=== PATIENT | female | born 1935 | race Caucasian/White ===

== ENCOUNTER 2016-10-06 18:50 | Emergency (ER) | payer MEDICARE, BC ==
[2016-10-06 19:35] VITALS: BP 161/91
[2016-10-06] MEDS ORDERED: Heparin Sodium 5,000 Units/ML Vial SUBCUT ONE (19:38)
[2016-10-06] MEDS ORDERED: Heparin Sodium 5,000 Units/ML Vial ONE (19:39)
[2016-10-06] MEDS ORDERED: Heparin Sodium/D5W 250 ML ONE (19:41)
[2016-10-06] MEDS ORDERED: Heparin Sodium/D5W 25,000 UNITS/250 ML BAG IV SCH (19:45)
[2016-10-06 19:47] LABS: CHLORIDE,CL 101 mmol/L (98-115); SODIUM,NA 137 mmol/L (136-145)
[2016-10-06] MEDS ORDERED: Heparin Sodium 5,000 Units/ML Vial IVPUSH ONE (19:50)
--- NOTE | 2016-10-06 20:04 | EDM.PDOC ---
ED HPI GENERAL MEDICAL PROBLEM - General Chief Complaint: Chest Pain Stated Complaint: CHEST PAIN Time Seen by Provider: 10/06/16 19:17 Source of Information: Reports: Patient, EMS, Family, Senior Living Records History Limitations: Reports: No Limitations - History of Present Illness INITIAL COMMENTS - FREE TEXT/NARRATIVE: Patient [place] via ambulance from [place] with report of chest pain. She had been ready to start eating supper when she was noticed to be holding her arms stiff and had a fever of 102.5. They called for the ambulance and while en route to ER she developed chest pain at 1830-40. Nitro and ASA 81x4 were administered. Shortly after arrival to ER her chest pain subsided. EKG shows LBBB and ST elevations in leads V1-3. O2 sats were 89% on RA and came up to 97% on 2 liters of oxygen via cannula. Discussed this with pt and family; they would like to go to [facility] so I called and talked with leasing director Dr. Betts. He reviewed previous EKGs and compared with ours today showing no significant change. Labs are pending. With her response to nitro we felt best to treat like a NSTEMI and transfer for serial troponins there in [place]. Patient and family agreeable with this. Discussed case with hospitalist Dr. Ogden who accepted patient for transfer and serial troponins. - Related Data Allergies Allergy/AdvReac Type Severity Reaction Status Date / Time terbinafine HCl Allergy Severe Hives Verified 10/06/16 19:46 [From Lamisil] Penicillins Allergy Cannot Verified 10/06/16 19:46 Remember Home Meds: Home Meds Acetaminophen [Tylenol] 650 mg PO Q4H PRN 11/21/13 [History] Albuterol [Proventil] 1 blister INH TID PRN 11/21/13 [History] Baclofen 10 mg PO TID 11/21/13 [History] Calcium Carbonate/Vitamin D3 [Calcium 600 + Vit D 400] 1 each PO BID 11/21/13 [ History] Carvedilol [Coreg] 3.125 mg PO BID 11/21/13 [History] Codeine/Promethazine HCl [Promethazine-Codeine Syrup] 5 ml PO Q4H PRN 11/21/13 [ History] Cranberry 400 mg PO TID 11/21/13 [History] Lisinopril 2.5 mg PO DAILY 11/21/13 [History] Loratadine [Claritin] 10 mg PO DAILY 11/21/13 [History] Multivits,Ca,Minerals/Iron/FA [Thera-M] 1 each PO BID 11/21/13 [History] Sulfamethoxazole/Trimethoprim [Bactrim 400-80 MG] 0.5 tab PO DAILY 11/21/13 [ History] Dalfampridine [Ampyra] 10 mg PO Q12HR 12/25/13 [History] Provex-Plus 1 cap PO DAILY 12/25/13 [History] Cellwise 1 tab PO BID 05/22/14 [History] Acetaminophen [Tylenol Arthritis Pain] 650 mg PO TID 10/26/14 [History] Albuterol Sulfate 2.5 mg IH TID 10/26/14 [History] Dextromethorphan/guaiFENesin [Mucinex DM ER 600-30 MG] 1 tab PO Q12H PRN [History] Docusate Sodium [Colace] 100 mg PO BID 10/26/14 [History] Nystatin 1 each TOP DAILY PRN 10/26/14 [History] Oxybutynin [Oxybutynin ER] 5 mg PO BID 10/26/14 [History] Polyvinyl Alcohol/Povidone [Refresh] 1 drop EARLF BID 10/26/14 [History] Past Medical History 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 ED EXAM, GENERAL - Physical Exam Exam: See Below Exam Limited By: No Limitations General Appearance: Alert, WD/WN, Anxious Eye Exam: Bilateral Eye: EOMI, Normal Inspection, PERRL Ears: Normal External Exam, Hearing Grossly Normal Nose: Normal Inspection, No Blood. No: Nasal Flaring Throat/Mouth: Normal Inspection, Normal Lips, Normal Voice, No Airway Compromise Head: Atraumatic, Normocephalic Neck: Normal Inspection, Supple, Non-Tender Respiratory/Chest: Lungs Clear, Respiratory Distress (She has some chronic increased respiratory effort but no change currently per patient and her daughter.) Cardiovascular: Tachycardia Peripheral Pulses: 2+: Radial (L), Radial (R) Neurological: Alert, Oriented, Normal Cognition, No Motor/Sensory Deficits Psychiatric: Normal Affect, Normal Mood, Anxious Skin Exam: Warm, Dry, Intact, Normal Color, No Rash Course - Vital Signs Last Recorded V/S: Last Vital Signs Temp 101.2 F H 10/06/16 19:20 Pulse 117 H 10/06/16 19:20 Resp 30 H 10/06/16 19:20 BP 161/91 H 10/06/16 19:20 Pulse Ox 89 L 10/06/16 19:20 - Orders/Labs/Meds Orders: Active Orders 24 hr Category Date Time Status INR,PT,PROTHROMBIN TIME [COAG] Stat Lab 10/06/16 19:42 Ordered LACTIC ACID [CHEM] Stat Lab 10/06/16 19:42 Ordered PTT,PARTIAL THROMBOPLSTIN TIME [COAG] Stat Lab 10/06/16 19:42 Ordered TROPONIN I [CHEM] Stat Lab 10/06/16 19:42 Ordered Heparin Sodium/D5W Med 10/06/16 19:45 Ordered 25,000 units in 250 ml IV TITRATE Medication Orders Heparin Sodium/Dextrose () 25,000 units in 250 mls @ 10 mls/hr IV TITRATE POLO; 1,000 UNITS/HR PRN Reason: Protocol Labs: Laboratory Tests 10/06/16 10/06/16 Range/Units 19:05 19:05 WBC 15.1 H (5.0-10.0) 10^3/uL RBC 4.19 (3.80-5.50) 10^6/uL Hgb 13.6 (12.0-16.0) g/dL Hct 41.5 (37.0-47.0) % MCV 98.9 H (82.0-92.0) fL MCH 32.4 H (27.0-31.0) pg MCHC 32.7 (32.0-36.0) g/dL RDW 12.8 (11.5-14.5) % Plt Count 318 H (150-300) 10^3/uL MPV 7.3 L (7.4-10.4) fL Neut % (Auto) 72.2 H (50.0-70.0) % Lymph % (Auto) 19.3 L (20.0-40.0) % [place] % (Auto) 8.2 H (2.0-8.0) % Eos % (Auto) 0.1 L (1.0-3.0) % Baso % (Auto) 0.2 (0.0-1.0) % Neut # (Auto) 11.0 H (2.5-7.0) 10^3/uL Lymph # (Auto) 2.9 (1.0-4.0) 10^3/uL [place] # (Auto) 1.2 H (0.1-0.8) 10^3/uL Eos # (Auto) 0.0 L (0.1-0.3) 10^3/uL Baso # (Auto) 0.0 (0.0-0.1) 10^3/uL Sodium 137 (136-145) mmol/L Potassium 3.9 (3.3-5.3) mmol/L Chloride 101 (98-115) mmol/L Carbon Dioxide 28.7 (21.0-32.0) mmol/L BUN 10 (6-25) mg/dL Creatinine 0.56 (0.51-1.17) mg/dL Est Cr Clr Drug Dosing 75.01 mL/min Estimated GFR (MDRD) > 60 mL/min Glucose 132 H (70-110) mg/dL Calcium 8.6 L (8.7-10.3) mg/dL Troponin I < 0.04 (0.00-0.070) ng/mL Meds: Medications Generic Name Dose Route Start Last Admin Trade Name Freq PRN Reason Stop Dose Admin Heparin Sodium/Dextrose 25,000 units in 250 mls @ 10 mls/hr 10/06/16 19:45 IV TITRATE POLO Protocol 1,000 UNITS/HR Discontinued Medications Generic Name Dose Route Start Last Admin Trade Name Freq PRN Reason Stop Dose Admin Heparin Sodium (Porcine) 5,000 units 10/06/16 19:38 Heparin Sodium SUBCUT 10/06/16 19:39 ONETIME ONE Heparin Sodium (Porcine) Confirm 10/06/16 19:39 Heparin Sodium Administered 10/06/16 19:40 Dose 5,000 units .ROUTE .STK-MED ONE Heparin Sodium/Dextrose Confirm 10/06/16 19:41 Administered 10/06/16 19:42 Dose 250 mls @ as directed .ROUTE .STK-MED ONE - Re-Assessments/Exams Free Text/Narrative Re-Assessment/Exam: 10/06/16 20:29 Discussed case with both doctors in [place] as in HPI. Labs are in now showing WBC of 15.1 and CRP 8.1 with normal lactate. Trop is normal at 0.04. This updated lab information is relayed to [facility] in nurse to nurse call. Heparin bolus was given and the drip started. Patient transported to [facility] via ALS ambulance and left in stable condition. 10/06/16 20:39 Blood cultures were obtained. A chest xray was planned but not done before patient left. Departure - Departure Time of Disposition: 19:45 Disposition: DC/Tfer to [facility] 02 Reason for Transfer *Q: Other Condition: Fair Clinical Impression: NSTEMI (non-ST elevated myocardial infarction), Neutrophilic leukocytosis Fever Qualifiers: Fever type: unspecified Qualified Code(s): R50.9 - Fever, unspecified Referrals: Autumn Cohen MD [Primary Care Provider] - Forms: ED Department Discharge - My Orders Last 24 Hours: My Active Orders 10/06/16 19:42 INR,PT,PROTHROMBIN TIME [COAG] Stat LACTIC ACID [CHEM] Stat PTT,PARTIAL THROMBOPLSTIN TIME [COAG] Stat TROPONIN I [CHEM] Stat 10/06/16 19:45 Heparin Sodium/D5W 25,000 units in 250 ml IV TITRATE - Assessment/Plan Last 24 Hours: My Active Orders 10/06/16 19:42 INR,PT,PROTHROMBIN TIME [COAG] Stat LACTIC ACID [CHEM] Stat PTT,PARTIAL THROMBOPLSTIN TIME [COAG] Stat TROPONIN I [CHEM] Stat 10/06/16 19:45 Heparin Sodium/D5W 25,000 units in 250 ml IV TITRATE
== END 2016-10-06 20:05 ==
LOC: KA.ED 18:50
DX: I21.4 Non-ST elevation (NSTEMI) myocardial infarction (principal); D72.828 Other elevated white blood cell count; G35 Multiple sclerosis; Z87.891 Personal history of nicotine dependence; Z79.899 Other long term (current) drug therapy; Z88.0 Allergy status to penicillin; Z88.8 Allergy status to other drugs, medicaments and biological substances
CPT/HCPCS: 36415; 80048; 83605; 84484; 85025; 85610; 85730; 86140; 87040; 93005; 96374; 96375; 99285; J1644

== ENCOUNTER 2017-03-31 01:25 | Inpatient (IN) | payer MEDICARE, BC ==
[2017-03-31] MEDS ORDERED: Sodium Chloride 0.9% 5 ML Syringe FLUSH PRN (01:49)
[2017-03-31] MEDS ORDERED: Acetaminophen 500 MG Tab PO ONE (01:51)
--- NOTE | 2017-03-31 02:21 | EDM.PDOC ---
ED HPI GENERAL MEDICAL PROBLEM - General Chief Complaint: Respiratory Problem Stated Complaint: Sob, hypoxia Time Seen by Provider: 03/31/17 02:00 Source of Information: Reports: Patient History Limitations: Reports: Altered Mental Status (MS, dementia) - History of Present Illness INITIAL COMMENTS - FREE TEXT/NARRATIVE: 81-year-old female resident the [facility] long term [facility] is brought to the emergency room by the EMS complaints of shortness of breath and coughing. Staff have noticed that patient's O2 saturations were in the low 80s and was having increased coughing today she was given nebulizer treatment without improvement. She was febrile. Her cough is unproductive some wet. Upon arrival EMS O2 saturations were in the low 80s she was put on a non-rebreather O2 at 15 L O2 saturations improved to 97% she was tachycardic with a heart rate running in the 120s she was hypotensive blood pressures 87/50 respirations were 26, temperature on arrival was 100. Patient has a history of MS, dementia, and CHF. She is a poor historian and is unable to communicate her past medical history. Her daughter is present today and accompanies her in the room. Onset: Today Onset Date: 03/30/17 Duration: Hour(s):, Getting Worse Location: Reports: Chest Severity: Severe Improves with: Reports: Other (Oxygen) Worsens with: Reports: Breathing Associated Symptoms: Reports: Confusion, Cough, cough w sputum, Fever/Chills, Shortness of Breath Treatments ROLL FILLER: Reports: Breathing Treatments, Oxygen - Related Data Allergies Allergy/AdvReac Type Severity Reaction Status Date / Time terbinafine HCl Allergy Severe Hives Verified 03/31/17 01:35 [From Lamisil] Penicillins Allergy Cannot Verified 03/31/17 01:35 Remember Home Meds: Home Meds Acetaminophen [Tylenol] 650 mg PO Q4H PRN 11/21/13 [History] Carvedilol [Coreg] 3.125 mg PO BID 11/21/13 [History] Loratadine [Claritin] 10 mg PO DAILY PRN 11/21/13 [History] Multivits,Ca,Minerals/Iron/FA [Thera-M] 1 each PO BID 11/21/13 [History] Provex-Plus 1 cap PO DAILY 12/25/13 [History] Cellwise 1 tab PO BID 05/22/14 [History] Acetaminophen [Tylenol Arthritis Pain] 650 mg PO TID 10/26/14 [History] Albuterol Sulfate 2.5 mg IH Q4HR PRN 10/26/14 [History] Docusate Sodium [Colace] 100 mg PO BID 10/26/14 [History] Aspirin [Adult Low Dose Aspirin EC] 81 mg PO DAILY 10/07/16 [History] Cranberry Conc/Ascorbic Acid [Cranberry Plus Vitamin C Sftgl] 1 cap PO DAILY [History] Dextromethorphan/guaiFENesin [Mucinex DM ER 600-30 MG] 1 tab PO Q12HR PRN [History] Furosemide 40 mg PO DAILY 10/07/16 [History] Miconazole Nitrate [Anti-Fungal] 1 applic TOP BID 10/07/16 [History] Polyethylene Glycol 3350 [MiraLAX] 17 gm PO DAILY 10/07/16 [History] Potassium Chloride 20 meq PO DAILY 10/07/16 [History] QUEtiapine [SEROquel] 12.5 mg PO DAILY 10/07/16 [History] Albuterol Sulfate 2.5 mg IH BID 03/31/17 [History] L.acidoph,Paracasei, B.lactis [Probiotic] 2 each PO BID 03/31/17 [History] Past Medical History HEENT History: Reports: Hard of Hearing, Impaired Vision Cardiovascular History: Reports: Heart Failure 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 Respiratory History: Reports: Other (See Below) Other Respiratory History: chronic wheezing Gastrointestinal History: Reports: Chronic Constipation Genitourinary History: Reports: Neurogenic Bladder, Urinary Incontinence, UTI, Recurrent Musculoskeletal History: Reports: Arthritis Other Musculoskeletal History: multiple sclerosis Neurological History: Reports: [place] Psychiatric History: Reports: Dementia Social & Family History - Tobacco Use Smoking Status *Q: Former Smoker Years of Tobacco use: 25 Used Tobacco, but Quit: Yes Month Tobacco Last Used: december Second Hand Smoke Exposure: No - Caffeine Use Caffeine Use: Reports: None - Alcohol Use Days Per Week of Alcohol Use: 0 - Recreational Drug Use Recreational Drug Use: No ED ROS GENERAL - Review of Systems Review Of Systems: Unable To Obtain (dementia) ED EXAM, GENERAL - Physical Exam Exam: See Below Exam Limited By: Altered Mental Status General Appearance: Alert, No Apparent Distress, Obese Eye Exam: Bilateral Eye: EOMI, PERRL Ears: Normal External Exam, Normal TMs Nose: Normal Inspection Throat/Mouth: Normal Inspection, Normal Oropharynx Head: Atraumatic Neck: Normal Inspection, Supple Respiratory/Chest: Decreased Breath Sounds, Crackles, Wheezing (expiratory) Cardiovascular: No Edema, Tachycardia Peripheral Pulses: 1+: Dorsalis Pedis (L), Dorsalis Pedis (R), 2+: Carotid (L), Carotid (R) GI/Abdominal: Soft, Non-Tender, No Distention Back Exam: Normal Inspection, Full Range of Motion Extremities: Normal Inspection, No Pedal Edema Neurological: Alert, Confused (pleasantly) Psychiatric: Normal Mood, Flat Affect Skin Exam: Warm (patient skin is very warm), Dry, Intact, No Rash Lymphatic: No Adenopathy EKG INTERPRETATION EKG Date: 03/31/17 Time: 02:23 Rhythm: Other (sinus tachycardia) Rate (Beats/Min): 115 [place]: LAD-Left [place] Deviation QRS: LBBB ST-T: Normal QT: Normal Comparison: NA - No Prior EKG EKG Interpretation Comments: ECG Course - Vital Signs Last Recorded V/S: Last Vital Signs Temp 99.6 F 03/31/17 03:24 Pulse 120 H 03/31/17 01:35 Resp 28 H 03/31/17 01:35 BP 119/50 L 03/31/17 01:35 Pulse Ox 5 L 03/31/17 01:35 - Orders/Labs/Meds Orders: Active Orders 24 hr Category Date Time Status EKG Documentation Completion [RC] ASDIRECTED Care 03/31/17 01:50 Active Chest 2V [CR] Stat Exams 03/31/17 01:51 Ordered CULTURE BLOOD [BC] Stat Lab 03/31/17 02:05 Received CULTURE BLOOD [BC] Stat Lab 03/31/17 03:05 Received UA W/MICROSCOPIC [URIN] Stat Lab 03/31/17 02:46 Uncollected Sodium Chloride 0.9% [Normal Saline] 1,000 ml Med 03/31/17 03:00 Active IV ASDIRECTED Sodium Chloride 0.9% [Syrex Flush] Med 03/31/17 01:49 Active 5 ml FLUSH Q8HR PRN Blood Culture x2 Reflex Set [OM.PC] Stat Oth 03/31/17 01:50 Ordered Saline Lock Insert [OM.PC] Routine Oth 03/31/17 01:49 Ordered EKG 12 Lead [EK] Routine Ther 03/31/17 01:50 Ordered Medication Orders Sodium Chloride (Normal Saline) 1,000 mls @ 150 mls/hr IV ASDIRECTED POLO Last Admin: 03/31/17 02:58 Dose: 150 mls/hr Sodium Chloride (Syrex Flush) 5 ml FLUSH Q8HR PRN PRN Reason: Keep Vein Open Labs: Laboratory Tests 03/31/17 03/31/17 Range/Units 02:05 02:05 WBC 8.7 (5.0-10.0) 10^3/uL RBC 4.39 (3.80-5.50) 10^6/uL Hgb 13.9 (12.0-16.0) g/dL Hct 43.3 (37.0-47.0) % MCV 98.7 H (82.0-92.0) fL MCH 31.8 H (27.0-31.0) pg MCHC 32.2 (32.0-36.0) g/dL RDW 13.3 (11.5-14.5) % Plt Count 331 H (150-300) 10^3/uL MPV 7.5 (7.4-10.4) fL Sodium 139 (136-145) mmol/L Potassium 4.0 (3.3-5.3) mmol/L Chloride 101 (98-115) mmol/L Carbon Dioxide 31.8 (21.0-32.0) mmol/L BUN 10 (6-25) mg/dL Creatinine 0.63 (0.51-1.17) mg/dL Est Cr Clr Drug Dosing 64.09 mL/min Estimated GFR (MDRD) > 60 mL/min Glucose 138 H (70-110) mg/dL Calcium 9.3 (8.7-10.3) mg/dL Total Bilirubin 0.2 (0.2-1.0) mg/dL AST 24 (15-37) U/L ALT 20 (12-78) U/L Alkaline Phosphatase 93 (46-116) IU/L B-Natriuretic Peptide 852 H (0-100) pg/mL Total Protein 8.4 H (6.4-8.2) g/dL Albumin 3.09 (3.00-4.80) g/dL Meds: Medications Generic Name Dose Route Start Last Admin Trade Name Freq PRN Reason Stop Dose Admin Sodium Chloride 1,000 mls @ 150 mls/hr 03/31/17 03:00 03/31/17 02:58 Normal Saline IV 150 mls/hr ASDIRECTED POLO Administration Sodium Chloride 5 ml 03/31/17 01:49 Syrex Flush FLUSH Q8HR PRN Keep Vein Open Discontinued Medications Generic Name Dose Route Start Last Admin Trade Name Freq PRN Reason Stop Dose Admin Acetaminophen 1,000 mg 03/31/17 01:51 03/31/17 03:24 Tylenol Extra Strength PO 03/31/17 01:52 1,000 mg ONETIME ONE Administration Sodium Chloride Confirm 03/31/17 02:52 03/31/17 03:25 Normal Saline Administered 03/31/17 02:53 Not Given Dose 1,000 mls @ as directed .ROUTE .STK-MED ONE - Radiology Interpretation Free Text/Narrative:: Chest x-ray 2 views Impression Findings suggest pulmonary congestion/mild CHF. Mild airway disease may not be excluded. No focal consolidation identified - Re-Assessments/Exams Free Text/Narrative Re-Assessment/Exam: 03/31/17 03:47 Patient is resting comfortably. Her heart rate is down to 95. Blood pressures are stable at 100 systolic over 60 diastolic. Departure - Departure Time of Disposition: 03:53 Disposition: Admitted As Inpatient 67 Condition: Fair Clinical Impression: Influenza, Febrile illness, acute, Tachycardia with heart rate 100-120 beats per minute, Hypoxia Congestive heart failure Qualifiers: Congestive heart failure type: unspecified congestive heart failure type Congestive heart failure chronicity: acute on chronic Qualified Code(s): I50.9 - Heart failure, unspecified - Discharge Information Referrals: Vita Maravilla TASSEL SNIPPER [Primary Care Provider] - Forms: ED Department Discharge - My Orders Last 24 Hours: My Active Orders 03/31/17 01:49 Sodium Chloride 0.9% [Syrex Flush] 5 ml FLUSH Q8HR PRN Saline Lock Insert [OM.PC] Routine 03/31/17 01:50 EKG Documentation Completion [RC] ASDIRECTED Blood Culture x2 Reflex Set [OM.PC] Stat EKG 12 Lead [EK] Routine 03/31/17 01:51 Chest 2V [CR] Stat 03/31/17 02:05 CULTURE BLOOD [BC] Stat 03/31/17 02:46 UA W/MICROSCOPIC [URIN] Stat 03/31/17 03:00 Sodium Chloride 0.9% [Normal Saline] 1,000 ml IV ASDIRECTED 03/31/17 03:05 CULTURE BLOOD [BC] Stat - Assessment/Plan Last 24 Hours: My Active Orders 03/31/17 01:49 Sodium Chloride 0.9% [Syrex Flush] 5 ml FLUSH Q8HR PRN Saline Lock Insert [OM.PC] Routine 03/31/17 01:50 EKG Documentation Completion [RC] ASDIRECTED Blood Culture x2 Reflex Set [OM.PC] Stat EKG 12 Lead [EK] Routine 03/31/17 01:51 Chest 2V [CR] Stat 03/31/17 02:05 CULTURE BLOOD [BC] Stat 03/31/17 02:46 UA W/MICROSCOPIC [URIN] Stat 03/31/17 03:00 Sodium Chloride 0.9% [Normal Saline] 1,000 ml IV ASDIRECTED 03/31/17 03:05 CULTURE BLOOD [BC] Stat Assessment:: 1. Acute exacerbation of congestive heart failure 2. Influenza A positive 3. Febrile 4. Tachycardia 5. Hypoxia Plan: 1. Patient will be admitted and started on IV Lasix 40 mg beginning this morning. We'll start Tamiflu for influenza. I discussed the findings with the provider Vita maravilla nurse practitioner, she takeover inpatient care.
[2017-03-31 02:36] LABS: CHLORIDE,CL 101 mmol/L (98-115); SODIUM,NA 139 mmol/L (136-145)
[2017-03-31] MEDS ORDERED: Sodium Chloride 0.9% 1,000 ML ONE (02:52)
[2017-03-31] MEDS ORDERED: Sodium Chloride 0.9% 1,000 ML IV SCH (03:00)
[2017-03-31] MEDS ORDERED: Albuterol 0.083% 2.5 MG/3 ML Neb Soln NEB PRN ×2 (04:01→04:09)
[2017-03-31] MEDS ORDERED: Acetaminophen 325 MG Tab PO PRN ×2 (04:01→04:09)
[2017-03-31] MEDS ORDERED: MICONAZOLE NITRATE TOP PRN (04:09)
[2017-03-31] MEDS ORDERED: Non-Formulary Medication 1 Each (Loratadine [Claritin] 10 MG) PO PRN (04:09)
[2017-03-31] MEDS: Oseltamivir 75 MG Cap PO SCH ×2 (04:51→10:32)
[2017-03-31] MEDS ORDERED: Atropine 0.1 MG/ML 10 ML Syringe IVPUSH PRN (06:04)
[2017-03-31] MEDS ORDERED: Lidocaine 2% 100 MG/5 ML Syringe IVPUSH PRN (06:04)
[2017-03-31] MEDS ORDERED: EPINEPHrine 1:10,000 1 MG/10 ML Syringe IVPUSH PRN (06:04)
[2017-03-31] MEDS ORDERED: Nitroglycerin 0.4 MG Tab.SL SL PRN (06:04)
[2017-03-31] MEDS ORDERED: Furosemide 40 MG/4 ML VIAL IVPUSH ONE (06:15)
[2017-03-31 08:38] LABS: CHLORIDE,CL 101 mmol/L (98-115); SODIUM,NA 140 mmol/L (136-145)
[2017-03-31] MEDS ORDERED: CARVEDILOL 3.125 MG PO SCH (09:00)
[2017-03-31] MEDS ORDERED: Polyethylene Glycol 3350 Powder 238 GM Bot PO SCH (09:00)
[2017-03-31] MEDS ORDERED: [UNRECOGNIZED DRUG - OTHER] PO SCH (09:00)
[2017-03-31] MEDS ORDERED: IRON PO SCH (09:00)
[2017-03-31] MEDS ORDERED: CELLWISE PO SCH (09:00)
[2017-03-31] MEDS ORDERED: [UNRECOGNIZED DRUG - OTHER] PO SCH (09:00)
[2017-03-31] MEDS ORDERED: Non-Formulary Medication 1 Each (Cranberry Conc/Ascorbic Acid [Cranberry Plus Vitamin C Sf PO SCH (09:00)
[2017-03-31] MEDS ORDERED: Non-Formulary Medication 1 Each (Potassium Chloride [Potassium Chloride] 20 MEQ) PO SCH (09:00)
[2017-03-31] MEDS ORDERED: MULTIVITS CA MINERALS PO SCH (09:00)
[2017-03-31] MEDS ORDERED: ACIDOPH PARACASEI B LACTIS PO SCH (09:00)
[2017-03-31] MEDS: Acetaminophen 650 MG Tab.ER PO SCH ×3 (10:33→20:45)
[2017-03-31] MEDS: Docusate Sodium 100 MG Cap PO SCH ×2 (10:33→20:46)
[2017-03-31] MEDS: Aspirin 81 MG Tab.EC PO SCH (10:33)
[2017-03-31] MEDS: Potassium Chloride 20 MEQ Tab.ER PO SCH (10:37)
[2017-03-31] MEDS: B.Bifidum/B.Longum/L.Acidophilus/L.Rhamnosus (Probiotic) Cap PO SCH (10:37)
[2017-03-31] MEDS ORDERED: Loratadine 10 MG Tab PO PRN (11:45)
[2017-03-31] MEDS ORDERED: Carvedilol 6.25 MG Tab PO SCH (18:00)
[2017-03-31] MEDS: Multivitamins with Minerals/Iron/Folic Acid/Lycopene Tab PO SCH (18:21)
[2017-03-31] MEDS: Carvedilol 6.25 MG Tab PO SCH (18:21)
--- NOTE | 2017-03-31 19:36 | PCM.HP ---
H&P History of Present Illness - General Date of Service: 03/31/17 Admit Problem/Dx: Admission Diagnosis/Problem Admission Diagnosis/Problem CHF, Congestive heart failure influenza A positive Source of Information: [facility] Records, Provider History Limitations: Reports: Altered Mental Status, Respiratory Distress - History of Present Illness Initial Comments - Free Text/Narative: 81-year-old female resident the [facility] was brought to the emergency room by the EMS with complaints of shortness of breath and coughing. Staff had noticed that patient's O2 saturations were in the low 80s and was having increased coughing. She was given nebulizer treatment without improvement. She was febrile. Her cough is unproductive. Upon arrival of EMS, O2 saturations were in the low 80s. She was put on a non-rebreather O2 at 15 L O2 saturations improved to 97%. she was tachycardic with a heart rate running in the 120s. She was hypotensive blood pressures 87/50 respirations were 26, temperature on arrival was 100. Patient has a history of MS, dementia, and CHF. She is a poor historian and is unable to communicate her past medical history. Onset of Symptoms: Reports: Sudden Symptom Onset Date: 03/30/17 Duration of Symptoms: Reports: Hour(s):, Getting Worse Location: Reports: Chest Improves with: Reports: None Worsens with: Reports: Breathing Context: Reports: Sick Contact, Other (Other residents of same NH admitted with flu) Associated Symptoms: Reports: Confusion, Cough, Diaphoresis, Fever/Chills, Shortness of Breath, Weakness - Related Data Allergies/Adverse Reactions: Allergies Allergy/AdvReac Type Severity Reaction Status Date / Time terbinafine HCl Allergy Severe Hives Verified 03/31/17 01:35 [From Lamisil] Penicillins Allergy Cannot Verified 03/31/17 01:35 Remember Home Medications: Home Meds Acetaminophen [Tylenol] 650 mg PO Q4H PRN 11/21/13 [History] Carvedilol [Coreg] 3.125 mg PO BID 11/21/13 [History] Loratadine [Claritin] 10 mg PO DAILY PRN 11/21/13 [History] Multivits,Ca,Minerals/Iron/FA [Thera-M] 1 each PO BID 11/21/13 [History] Provex-Plus 1 cap PO DAILY 12/25/13 [History] Cellwise 1 tab PO BID 05/22/14 [History] Acetaminophen [Tylenol Arthritis Pain] 650 mg PO TID 10/26/14 [History] Albuterol Sulfate 2.5 mg IH Q4HR PRN 10/26/14 [History] Docusate Sodium [Colace] 100 mg PO BID 10/26/14 [History] Aspirin [Adult Low Dose Aspirin EC] 81 mg PO DAILY 10/07/16 [History] Cranberry Conc/Ascorbic Acid [Cranberry Plus Vitamin C Sftgl] 1 cap PO DAILY [History] Dextromethorphan/guaiFENesin [Mucinex DM ER 600-30 MG] 1 tab PO Q12HR PRN [History] Furosemide 40 mg PO DAILY 10/07/16 [History] Miconazole Nitrate [Anti-Fungal] 1 applic TOP BID PRN 10/07/16 [History] Polyethylene Glycol 3350 [MiraLAX] 17 gm PO DAILY 10/07/16 [History] Potassium Chloride 20 meq PO DAILY 10/07/16 [History] QUEtiapine [SEROquel] 12.5 mg PO BEDTIME 10/07/16 [History] Albuterol Sulfate 2.5 mg IH BID 03/31/17 [History] L.acidoph,Paracasei, B.lactis [Probiotic] 2 each PO BID 03/31/17 [History] Past Medical History HEENT History: Reports: Hard of Hearing, Impaired Vision Cardiovascular History: Reports: Heart Failure 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, VRE Other Infectious Disease History: currently + influenza A - Past Surgical History Dermatological Surgical History: Reports: None Social & Family History - Tobacco Use Smoking Status *Q: Former Smoker Years of Tobacco use: 25 Used Tobacco, but Quit: Yes Month Tobacco Last Used: december Second Hand Smoke Exposure: No - Caffeine Use Caffeine Use: Reports: None - Alcohol Use Days Per Week of Alcohol Use: 0 - Recreational Drug Use Recreational Drug Use: No H&P Review of Systems - Review of Systems: Review Of Systems: Unable To Obtain (due to dementia) General: Reports: Fever, Malaise, Weakness Pulmonary: Reports: Shortness of Breath, Wheezing, Cough Cardiovascular: Reports: Other (shortness of breath at rest) Exam - Exam Exam: See Below - Vital Signs Vital Signs: Last Vital Signs Temp 99.6 F 03/31/17 19:00 Pulse 104 H 03/31/17 19:00 Resp 28 H 03/31/17 19:00 BP 136/81 03/31/17 19:00 Pulse Ox 97 03/31/17 19:00 Weight: 217 lb 4 oz - Exam Quality Assessment: Supplemental Oxygen General: Alert, Moderate Distress, Other (confused. Knows she wants something or something should be done, but doesn't know what.) Neck: No: JVD Lungs: Wheezing (coarse expiratory wheezing throughout) Cardiovascular: Irregular Rhythm, Tachycardia, Other (Heart rate 123-115 on admit, 100-104 after coreg increased) GI/Abdominal Exam: Normal Bowel Sounds, Soft, Non-Tender Extremities: No Pedal Edema Psychiatric: Other (dementia) - Patient Data Lab Results Last 24 hrs: Laboratory Results - last 24 hr 03/31/17 03/31/17 Range/Units 06:44 07:30 Sodium 140 (136-145) mmol/L Potassium 3.4 (3.3-5.3) mmol/L Chloride 101 (98-115) mmol/L Carbon Dioxide 31.8 (21.0-32.0) mmol/L BUN 11 (6-25) mg/dL Creatinine 0.66 (0.51-1.17) mg/dL Est Cr Clr Drug Dosing 61.17 mL/min Estimated GFR (MDRD) > 60 mL/min Glucose 102 (70-110) mg/dL Calcium 8.7 (8.7-10.3) mg/dL Specimen Type Urinqcath Urine Color Dark yellow H (YELLOW) Urine Appearance Cloudy H (CLEAR) Urine pH 6.0 (5.0-9.0) Ur Specific Darling 1.020 (1.005-1.030) Urine Protein 30 H (NEGATIVE) mg/dL Urine Glucose (UA) Negative (NEGATIVE) mg/dL Urine Ketones Trace H (NEGATIVE) mg/dL Urine Occult Blood Small H (NEGATIVE) Urine Nitrite Negative (NEGATIVE) Urine Bilirubin Negative (NEGATIVE) Urine Urobilinogen 0.2 (0.2-1.0) E.U./dL Ur Leukocyte Esterase Small H (NEGATIVE) Urine RBC 10-20 H /HPF Urine WBC 50-75 H /HPF Ur Epithelial Cells Rare /LPF Amorphous Sediment Many H (0/HPF) /HPF Urine Bacteria Few (NONE TO FEW) /HPF Urine Mucus Rare H (NEGATIVE) /LPF Result Diagrams: 03/31/17 02:05 03/31/17 07:30 *Q Meaningful Use (ADM) - VTE *Q VTE Criteria *Q: - Stroke *Q Stroke Criteria *Q: - AMI *Q AMI Criteria *Q: Problem List Initiated/Reviewed/Updated: Yes Orders Last 24hrs: Active Orders 24 hr Category Date Time Status Admission Status [Patient Status] [ADT] Routine ADT 03/31/17 03:57 Ordered Patient Status [ADT] Routine ADT 03/31/17 04:02 Ordered Antiembolic Devices [RC] 0900,2100 Care 03/31/17 04:08 Active Cardiac Monitoring [RC] 0300,0700,1100,1500,1900,2300 Care 03/31/17 04:05 Active Height and Weight [RC] 0700 Care 03/31/17 04:01 Active Intake and Output [RC] 1400,2200,0600 Care 03/31/17 04:05 Active Oxygen Therapy [RC] PRN Care 03/31/17 04:02 Active Pulse Oximetry [RC] .PRN Care 03/31/17 04:05 Active RT Aerosol Therapy [RC] ASDIRECTED Care 03/31/17 04:08 Active Vital Signs [RC] 0300,0700,1100,1500,1900,2300 Care 03/31/17 04:02 Active Heart Healthy Diet [DIET] Diet 03/31/17 Breakfast Active Acetaminophen [Tylenol Arthritis Pain] Med 03/31/17 09:00 Active 650 mg PO TID Acetaminophen [Tylenol] Med 03/31/17 04:01 Active 650 mg PO Q4H PRN Albuterol [Proventil Neb Soln] Med 03/31/17 04:09 Active 2.5 mg NEB BID PRN Albuterol [Proventil Neb Soln] Med 03/31/17 04:09 Active 2.5 mg NEB Q4HR PRN Aspirin [Halfprin] Med 03/31/17 09:00 Active 81 mg PO DAILY Atropine [Atropine 0.1 MG/ML] Med 03/31/17 06:04 Active 0 mg IVPUSH ASDIRECTED PRN B.Bif/B.Long/L.Acidoph/L.Rhamn [Multi-Penelope Plus] Med 03/31/17 10:45 Active 1 cap PO DAILY Carvedilol [Coreg] Med 03/31/17 18:00 Active 6.25 mg PO BIDMEALS Cranberry Ext/C/L. Sporogenes [Azo Cranberry] Med 04/01/17 09:00 Active 1 each PO DAILY Dextromethorphan/guaiFENesin [Mucinex DM ER 600-30 MG] Med 03/31/17 04:09 Active 1 tab PO Q12H PRN Docusate Sodium [Colace] Med 03/31/17 09:00 Active 100 mg PO BID EPINEPHrine [EPINEPHrine 1:10,000] Med 03/31/17 06:04 Active 1 mg IVPUSH ASDIRECTED PRN FA/Lycopene/Lut/MV,Ca,Iron,Min [Centrum] Med 03/31/17 18:00 Active 1 tab PO BIDMEALS Furosemide [Lasix] Med 04/01/17 09:00 Active 40 mg IVPUSH DAILY Lidocaine 2% [Xylocaine 2%] Med 03/31/17 06:04 Active 0 mg IVPUSH ASDIRECTED PRN Loratadine [Claritin] Med 03/31/17 11:45 Active 10 mg PO DAILY PRN Miconazole Nitrate [Anti-Fungal] Med 03/31/17 04:09 Active 1 applic TOP BID PRN Nitroglycerin [Nitrostat] Med 03/31/17 06:04 Active 0.4 mg SL ASDIRECTED PRN Oseltamivir [Tamiflu] Med 03/31/17 04:30 Active 75 mg PO DAILY Polyethylene Glycol 3350 [MiraLAX] Med 03/31/17 09:55 Active 17 gm PO DAILY Potassium Chloride [Klor-Con M20] Med 03/31/17 10:45 Active 20 meq PO DAILY QUEtiapine [SEROquel] Med 03/31/17 21:00 Active 12.5 mg PO BEDTIME Sulfamethoxazole/Trimethoprim [Septra DS] Med 03/31/17 21:00 Active 1 tab PO BID Antiembolic Hose [OM.PC] Per Unit Routine Oth 03/31/17 04:06 Ordered Sequential Compression Device [OM.PC] Per Unit Routine Oth 03/31/17 04:06 Ordered Resuscitation Status Routine Resus Stat 03/31/17 04:01 Ordered Medication Orders Acetaminophen (Tylenol) 650 mg PO Q4H PRN PRN Reason: Pain (Mild 1-3)/fever Acetaminophen (Tylenol Arthritis Pain) 650 mg PO TID [facility] Last Admin: 03/31/17 14:00 Dose: 650 mg Admin: 03/31/17 10:33 Dose: 650 mg Albuterol (Proventil Neb Soln) 2.5 mg NEB Q4HR PRN PRN Reason: Wheezing Albuterol (Proventil Neb Soln) 2.5 mg NEB BID PRN PRN Reason: Wheezing Stop: 04/03/17 04:10 Aspirin (Halfprin) 81 mg PO DAILY [facility] Last Admin: 03/31/17 10:33 Dose: 81 mg Atropine Sulfate (Atropine 0.1 Mg/Ml) 0 mg IVPUSH ASDIRECTED PRN PRN Reason: Heart Carvedilol (Coreg) 6.25 mg PO BIDMEALS [facility] Last Admin: 03/31/17 18:21 Dose: 6.25 mg Cranberry (Azo Cranberry) 1 each PO DAILY [facility] Docusate Sodium (Colace) 100 mg PO BID [facility] Last Admin: 03/31/17 10:33 Dose: 100 mg Epinephrine HCl (Epinephrine 1:10,000) 1 mg IVPUSH ASDIRECTED PRN PRN Reason: Heart Furosemide (Lasix) 40 mg IVPUSH DAILY [facility] Lactobacillus Acidophilus/Rhamnosus (Multi-Penelope Plus) 1 cap PO DAILY [facility] Last Admin: 03/31/17 10:37 Dose: 1 cap Lidocaine HCl (Xylocaine 2%) 0 mg IVPUSH ASDIRECTED PRN PRN Reason: Heart Loratadine (Claritin) 10 mg PO DAILY PRN PRN Reason: Allergies Multivitamins/Minerals (Centrum) 1 tab PO BIDMEALS [facility] Last Admin: 03/31/17 18:21 Dose: 1 tab Nitroglycerin (Nitrostat) 0.4 mg SL ASDIRECTED PRN PRN Reason: Heart Non-Formulary Medication (Dextromethorphan/Guaifenesin [Mucinex Dm Er 600-30 Mg] ) 1 tab PO Q12H PRN PRN Reason: Cough Non-Formulary Medication (Miconazole Nitrate [Anti-Fungal]) 1 applic TOP BID PRN PRN Reason: Itching Oseltamivir Phosphate (Tamiflu) 75 mg PO DAILY [facility] Last Admin: 03/31/17 10:32 Dose: 75 mg Admin: 03/31/17 04:51 Dose: 75 mg Polyethylene Glycol (Miralax) 17 gm PO DAILY [facility] Potassium Chloride (Klor-Con M20) 20 meq PO DAILY [facility] Last Admin: 03/31/17 10:37 Dose: 20 meq Quetiapine Fumarate (Seroquel) 12.5 mg PO BEDTIME [facility] Sodium Chloride (Syrex Flush) 5 ml FLUSH Q8HR PRN PRN Reason: Keep Vein Open Last Admin: 03/31/17 06:16 Dose: 5 ml Trimethoprim/Sulfamethoxazole (Septra Ds) 1 tab PO BID [facility] Stop: 04/05/17 21:01 Assessment/Plan Comment:: Brief HPI: 81-year-old female resident of [address] [place] [address] admitted through ER with Influenza, / fever, shortness of breath and non productive cough. O2 saturations in the low 80s. She was given nebulizer treatment without improvement. In ER she was put on a non-rebreather O2 at 15 L O2 saturations improved to 97%. She was tachycardic with a heart rate running in the 120s. She was hypotensive blood pressures 87/50 respirations were 26, temperature on arrival was 100. Patient has a history of MS, dementia, and CHF. 1. Influenza: Tamaflu 75 mg bid, Albuterol prn. 2. CHF: Chest Xray showing mild CHF without consolidation. Started on lasix 40 mg IV. Renal status WNL on last BMP. Will continue to monitor renal functions daily. 3. EKG showing Sinus Tachycardia: Increase carvedilol from 3.125 to 6.25 mg bid. Her BP has been within a normal range at 136/81. Heart rate has improved to 100-104 with increased carvedilol. 4. UTI: UA in ER showing RBCs, 10-20, WBCs 50-75 and protein 30. Will treat for UTI with Rocephin 1g iv q d x 3.
[2017-03-31] MEDS: Sulfamethoxazole/Trimethoprim 800-160 MG Tab PO SCH (20:46)
[2017-03-31] MEDS: QUEtiapine 25 MG Tab PO SCH (20:46)
[2017-04-01 08:00] LABS: CHLORIDE,CL 100 mmol/L (98-115); SODIUM,NA 136 mmol/L (136-145)
[2017-04-01] MEDS: Polyethylene Glycol 3350 Powder 17 GM Packet PO SCH (08:31)
[2017-04-01] MEDS: Sulfamethoxazole/Trimethoprim 800-160 MG Tab PO SCH (08:31)
[2017-04-01] MEDS: Furosemide 40 MG/4 ML VIAL IVPUSH SCH (08:32)
[2017-04-01] MEDS: Docusate Sodium 100 MG Cap PO SCH ×2 (08:32→20:59)
[2017-04-01] MEDS: Potassium Chloride 20 MEQ Tab.ER PO SCH (08:32)
[2017-04-01] MEDS: Acetaminophen 650 MG Tab.ER PO SCH ×3 (08:32→20:59)
[2017-04-01] MEDS: Oseltamivir 75 MG Cap PO SCH (08:32)
[2017-04-01] MEDS: B.Bifidum/B.Longum/L.Acidophilus/L.Rhamnosus (Probiotic) Cap PO SCH (08:32)
[2017-04-01] MEDS: Aspirin 81 MG Tab.EC PO SCH (08:32)
[2017-04-01] MEDS: Multivitamins with Minerals/Iron/Folic Acid/Lycopene Tab PO SCH ×2 (08:33→18:51)
[2017-04-01] MEDS: Carvedilol 6.25 MG Tab PO SCH ×2 (08:33→18:51)
[2017-04-01] MEDS: Cranberry Ext/C/L. Sporogenes Tab PO SCH (10:00)
--- NOTE | 2017-04-01 14:38 | PCM.PN ---
- General Info Date of Service: 04/01/17 Admission Dx/Problem (Free Text): Admission Diagnosis/Problem Admission Diagnosis/Problem CHF, Congestive heart failure influenza A positive Subjective Update: Pt has dementia and not a reliable source for ROS - Review of Systems General: Reports: Fever, Weakness. Denies: Appetite Pulmonary: Reports: Shortness of Breath, Wheezing (Shortness of breath and wheezing audible) - Patient Data Vitals - Most Recent: Last Vital Signs Temp 99.6 F 04/01/17 11:00 Pulse 89 04/01/17 11:00 Resp 24 H 04/01/17 11:00 BP 113/63 04/01/17 11:00 Pulse Ox 95 04/01/17 11:00 Weight - Most Recent: 218 lb I&O - Last 24 Hours: Intake & Output 03/31/17 04/01/17 04/01/17 22:59 06:59 14:59 Intake Total 250 200 Balance 250 200 Lab Results Last 24 Hours: Laboratory Results - last 24 hr 04/01/17 04/01/17 Range/Units 07:17 07:17 WBC 6.1 (5.0-10.0) 10^3/uL RBC 4.24 (3.80-5.50) 10^6/uL Hgb 13.3 (12.0-16.0) g/dL Hct 41.9 (37.0-47.0) % MCV 98.8 H (82.0-92.0) fL MCH 31.2 H (27.0-31.0) pg MCHC 31.6 L (32.0-36.0) g/dL RDW 13.7 (11.5-14.5) % Plt Count 258 (150-300) 10^3/uL MPV 7.6 (7.4-10.4) fL Neut % (Auto) 32.5 L (50.0-70.0) % Lymph % (Auto) 45.2 H (20.0-40.0) % Dewey % (Auto) 21.5 H (2.0-8.0) % Eos % (Auto) 0.0 L (1.0-3.0) % Baso % (Auto) 0.8 (0.0-1.0) % Neut # (Auto) 2.0 L (2.5-7.0) 10^3/uL Lymph # (Auto) 2.8 (1.0-4.0) 10^3/uL Dewey # (Auto) 1.3 H (0.1-0.8) 10^3/uL Eos # (Auto) 0.0 L (0.1-0.3) 10^3/uL Baso # (Auto) 0.0 (0.0-0.1) 10^3/uL Sodium 136 (136-145) mmol/L Potassium 4.0 (3.3-5.3) mmol/L Chloride 100 (98-115) mmol/L Carbon Dioxide 32.1 H (21.0-32.0) mmol/L BUN 7 (6-25) mg/dL Creatinine 0.72 (0.51-1.17) mg/dL Est Cr Clr Drug Dosing 56.08 mL/min Estimated GFR (MDRD) > 60 mL/min Glucose 96 (70-110) mg/dL Calcium 8.5 L (8.7-10.3) mg/dL Med Orders - Current: Current Medications Acetaminophen (Tylenol) 650 mg PO Q4H PRN PRN Reason: Pain (Mild 1-3)/fever Acetaminophen (Tylenol Arthritis Pain) 650 mg PO TID [facility] Last Admin: 04/01/17 08:32 Dose: 650 mg Albuterol (Proventil Neb Soln) 2.5 mg NEB Q4HR PRN PRN Reason: Wheezing Albuterol (Proventil Neb Soln) 2.5 mg NEB BID PRN PRN Reason: Wheezing Stop: 04/03/17 04:10 Aspirin (Halfprin) 81 mg PO DAILY [facility] Last Admin: 04/01/17 08:32 Dose: 81 mg Atropine Sulfate (Atropine 0.1 Mg/Ml) 0 mg IVPUSH ASDIRECTED PRN PRN Reason: Heart Carvedilol (Coreg) 6.25 mg PO BIDMEALS [facility] Last Admin: 04/01/17 08:33 Dose: 6.25 mg Cranberry (Azo Cranberry) 1 each PO DAILY [facility] Last Admin: 04/01/17 10:00 Dose: 1 each Docusate Sodium (Colace) 100 mg PO BID [facility] Last Admin: 04/01/17 08:32 Dose: 100 mg Epinephrine HCl (Epinephrine 1:10,000) 1 mg IVPUSH ASDIRECTED PRN PRN Reason: Heart Furosemide (Lasix) 40 mg IVPUSH DAILY [facility] Last Admin: 04/01/17 08:32 Dose: 40 mg Ceftriaxone Sodium 1 gm/ (Sodium Chloride) 50 mls @ 200 mls/hr IV Q24H [facility] Stop: 04/03/17 20:29 Lactobacillus Acidophilus/Rhamnosus (Multi-Penelope Plus) 1 cap PO DAILY [facility] Last Admin: 04/01/17 08:32 Dose: 1 cap Lidocaine HCl (Xylocaine 2%) 0 mg IVPUSH ASDIRECTED PRN PRN Reason: Heart Loratadine (Claritin) 10 mg PO DAILY PRN PRN Reason: Allergies Multivitamins/Minerals (Centrum) 1 tab PO BIDMEALS [facility] Last Admin: 04/01/17 08:33 Dose: 1 tab Nitroglycerin (Nitrostat) 0.4 mg SL ASDIRECTED PRN PRN Reason: Heart Non-Formulary Medication (Dextromethorphan/Guaifenesin [Mucinex Dm Er 600-30 Mg] ) 1 tab PO Q12H PRN PRN Reason: Cough Non-Formulary Medication (Miconazole Nitrate [Anti-Fungal]) 1 applic TOP BID PRN PRN Reason: Itching Oseltamivir Phosphate (Tamiflu) 75 mg PO DAILY [facility] Last Admin: 04/01/17 08:32 Dose: 75 mg Polyethylene Glycol (Miralax) 17 gm PO DAILY [facility] Last Admin: 04/01/17 08:31 Dose: 17 gm Potassium Chloride (Klor-Con M20) 20 meq PO DAILY [facility] Last Admin: 04/01/17 08:32 Dose: 20 meq Quetiapine Fumarate (Seroquel) 12.5 mg PO BEDTIME [facility] Last Admin: 03/31/17 20:46 Dose: 12.5 mg Sodium Chloride (Syrex Flush) 5 ml FLUSH Q8HR PRN PRN Reason: Keep Vein Open Last Admin: 03/31/17 06:16 Dose: 5 ml Trimethoprim/Sulfamethoxazole (Septra Ds) 1 tab PO BID [facility] Stop: 04/01/17 21:01 Last Admin: 04/01/17 08:31 Dose: 1 tab Discontinued Medications Acetaminophen (Tylenol Extra Strength) 1,000 mg PO ONETIME ONE Stop: 03/31/17 01:52 Last Admin: 03/31/17 03:24 Dose: 1,000 mg Carvedilol (Coreg) 3.125 mg PO BIDMEALS [facility] Furosemide (Lasix) 40 mg IVPUSH NOW ONE Stop: 03/31/17 06:16 Last Admin: 03/31/17 06:15 Dose: 40 mg Sodium Chloride (Normal Saline) 1,000 mls @ 150 mls/hr IV ASDIRECTED [facility] Last Admin: 03/31/17 02:58 Dose: 150 mls/hr Sodium Chloride (Normal Saline) Confirm Administered Dose 1,000 mls @ as directed .ROUTE .STK-MED ONE Stop: 03/31/17 02:53 Last Admin: 03/31/17 03:25 Dose: Not Given Non-Formulary Medication (Loratadine [Claritin]) 10 mg PO DAILY PRN PRN Reason: Allergies Non-Formulary Medication (Carvedilol [Coreg]) 3.125 mg PO BID [facility] Last Admin: 03/31/17 10:39 Dose: Not Given Non-Formulary Medication (Cellwise) 1 tab PO BID [facility] Last Admin: 03/31/17 10:40 Dose: Not Given Non-Formulary Medication (Cranberry Conc/Ascorbic Acid [Cranberry Plus Vitamin C Sftgl]) 1 cap PO DAILY [facility] Last Admin: 03/31/17 10:40 Dose: Not Given Non-Formulary Medication (L.Acidoph,Paracasei, B.Lactis [Probiotic]) 2 each PO BID [facility] Last Admin: 03/31/17 10:39 Dose: Not Given Non-Formulary Medication (Multivits,Ca,Minerals/Iron/Fa [Thera-M]) 1 each PO BID [facility] Last Admin: 03/31/17 10:40 Dose: Not Given Non-Formulary Medication (Potassium Chloride [Potassium Chloride]) 20 meq PO DAILY [facility] Last Admin: 03/31/17 10:39 Dose: Not Given Non-Formulary Medication (Provex-Plus) 1 cap PO DAILY [facility] Last Admin: 03/31/17 10:41 Dose: Not Given Polyethylene Glycol (Miralax) 17 gm PO DAILY [facility] Last Admin: 03/31/17 10:39 Dose: Not Given - Exam Quality Assessment: Supplemental Oxygen General: Mild Distress Lungs: Wheezing (tight wheezes throughout) Cardiovascular: Regular Rhythm GI/Abdominal Exam: Soft, Non-Tender Extremities: No Pedal Edema - Problem List Review Problem List Initiated/Reviewed/Updated: Yes - My Orders Last 24 Hours: My Active Orders 03/31/17 18:00 Carvedilol [Coreg] 6.25 mg PO BIDMEALS 03/31/17 21:00 Sulfamethoxazole/Trimethoprim [Septra DS] 1 tab PO BID 04/01/17 09:00 Furosemide [Lasix] 40 mg IVPUSH DAILY 04/01/17 20:15 cefTRIAXone [Rocephin] 1 gm Sodium Chloride 0.9% [Normal Saline] 50 ml IV Q24H 04/02/17 05:00 BMP [BASIC METABOLIC PANEL,BMP] [CHEM] DAILY 04/03/17 05:00 BMP [BASIC METABOLIC PANEL,BMP] [CHEM] DAILY - Plan Plan:: Brief HPI: 81-year-old female resident of [facility] [place] admitted through ER with Influenza - fever, shortness of breath and non productive cough. O2 saturations in the low 80s. She was given nebulizer treatment without improvement. In ER she was put on a non-rebreather O2 at 15 L O2 saturations improved to 97%. She was tachycardic with a heart rate running in the 120s. She was hypotensive blood pressures 87/50 respirations were 26, temperature on arrival was 100. Patient has a history of MS, dementia, and CHF. 1. Influenza: Tamaflu 75 mg bid, Albuterol prn. WBC 6.1, Monocytosis. No left shift. 2. CHF: Chest Xray showing mild CHF without consolidation. BNP in ER was 852. Started on lasix 40 mg IV. Renal status WNL. Will continue to monitor renal functions daily. 3. EKG showing Sinus Tachycardia: Carvedilol was increased from 3.125 to 6.25 mg bid. Her BP has been within a normal range at 136/81. Heart rate has improved to 84-94 with increased carvedilol. 4. UTI: UA in ER showing RBCs, 10-20, WBCs 50-75 and protein 30. No bacteria. Treated with Rocephin x 1 and bactrim.
[2017-04-01] MEDS ORDERED: cefTRIAXone 1 GM in Sodium Chloride 0.9% 50 ML IV SCH (20:15)
[2017-04-01] MEDS: QUEtiapine 25 MG Tab PO SCH (20:59)
[2017-04-02 08:32] LABS: CHLORIDE,CL 98 mmol/L (98-115); SODIUM,NA 135 mmol/L (136-145)
[2017-04-02] MEDS: Acetaminophen 650 MG Tab.ER PO SCH ×3 (08:33→20:19)
[2017-04-02] MEDS: Aspirin 81 MG Tab.EC PO SCH (08:33)
[2017-04-02] MEDS: Carvedilol 6.25 MG Tab PO SCH ×2 (08:34→18:24)
[2017-04-02] MEDS: Oseltamivir 75 MG Cap PO SCH (08:35)
[2017-04-02] MEDS: Docusate Sodium 100 MG Cap PO SCH ×2 (08:35→20:19)
[2017-04-02] MEDS: Multivitamins with Minerals/Iron/Folic Acid/Lycopene Tab PO SCH ×2 (08:35→18:22)
[2017-04-02] MEDS: Potassium Chloride 20 MEQ Tab.ER PO SCH (08:35)
[2017-04-02] MEDS: Polyethylene Glycol 3350 Powder 17 GM Packet PO SCH (08:35)
[2017-04-02] MEDS: Furosemide 40 MG/4 ML VIAL IVPUSH SCH (08:35)
[2017-04-02] MEDS: B.Bifidum/B.Longum/L.Acidophilus/L.Rhamnosus (Probiotic) Cap PO SCH (08:35)
[2017-04-02] MEDS: Cranberry Ext/C/L. Sporogenes Tab PO SCH (09:06)
[2017-04-02] MEDS: Albuterol 0.083% 2.5 MG/3 ML Neb Soln NEB PRN (11:03)
[2017-04-02] MEDS: QUEtiapine 25 MG Tab PO SCH (20:19)
[2017-04-03] MEDS: Albuterol 0.083% 2.5 MG/3 ML Neb Soln NEB PRN (07:52)
[2017-04-03 08:07] LABS: CHLORIDE,CL 97 mmol/L (98-115); SODIUM,NA 134 mmol/L (136-145)
[2017-04-03] MEDS: Cranberry Ext/C/L. Sporogenes Tab PO SCH (08:12)
[2017-04-03] MEDS: Oseltamivir 75 MG Cap PO SCH (08:13)
[2017-04-03] MEDS: Docusate Sodium 100 MG Cap PO SCH ×2 (08:13→20:10)
[2017-04-03] MEDS: Polyethylene Glycol 3350 Powder 17 GM Packet PO SCH (08:13)
[2017-04-03] MEDS: B.Bifidum/B.Longum/L.Acidophilus/L.Rhamnosus (Probiotic) Cap PO SCH (08:13)
[2017-04-03] MEDS: Multivitamins with Minerals/Iron/Folic Acid/Lycopene Tab PO SCH ×2 (08:13→17:11)
[2017-04-03] MEDS: Acetaminophen 650 MG Tab.ER PO SCH ×3 (08:14→20:12)
[2017-04-03] MEDS: Carvedilol 6.25 MG Tab PO SCH ×2 (08:14→17:11)
[2017-04-03] MEDS: Potassium Chloride 20 MEQ Tab.ER PO SCH (08:14)
[2017-04-03] MEDS: Furosemide 40 MG/4 ML VIAL IVPUSH SCH (08:14)
[2017-04-03] MEDS: Aspirin 81 MG Tab.EC PO SCH (08:14)
--- NOTE | 2017-04-03 08:27 | PN ---
04/02/2017PATIENT NAME: KIM SHAH SUBJECTIVE: A 81-year-old female patient who was admitted because of influenza positivity, shortness of breath and nonproductive cough. She was tachycardic. She has a history of multiple sclerosis, dementia, and CHF. She is seen today for followup. She is alert and slightly improved. OBJECTIVE: HEAD: Negative. ENT: Negative. HEART: Stable. LUNGS: Reveal a few crackles at the left base. ABDOMEN: Soft. NEUROLOGIC: Essentially intact. VITAL SIGNS: Blood pressure is 108/64, respiratory rate is 22, oxygen saturation 91%, temperature 98.2. INTAKE AND OUTPUT: Last 24-hour intake was 860. LABORATORY DATA: Performed today, it reveals serum sodium was slightly low at 135, potassium 4.3. BUN and creatinine are normal. FINAL DIAGNOSES: 1. The patient is influenza A positivity. The patient will continue with Tamiflu and albuterol on a p.r.n. basis. 2. Congestive heart failure, congestive, chest x-ray shows slight congestive heart failure. BNP was elevated to 852. She was started on Lasix IV daily. We will monitor renal functions closely. The patient's weight has dropped about 2 pounds. 3. Sinus tachycardia. The patient's carvedilol was increased to 6.25 mg b.i.d. Heart rate is coming down. Blood pressure is holding. 4. Urinary tract infections, taken care of. /[id number]/MODL
[2017-04-03] MEDS: Albuterol/Ipratropium 3.0-0.5 MG/3 ML Neb Soln NEB SCH ×3 (11:54→22:35)
--- NOTE | 2017-04-03 15:07 | PN ---
04/03/2017 PATIENT NAME: KIM SHAH HISTORY: This 81-year-old female who is a resident of [facility] who has had multiple episodes of incidences of influenza A. This patient is positive for influenza. She had initially complaining of shortness of breath and coughing with decreased oxygen saturations. She was given some nebulizer treatments without any improvement. She had febrile with a nonproductive cough. Her sats were in the low 80s upon ED arrival. She was also hypotensive with blood pressures of 80s/50s with elevated respiratory rates. Temperature was about 100, so she was admitted for further workup and treatment. OBJECTIVE: GENERAL: The patient states she overall feels better. However, she does have dementia, but lucid. VITAL SIGNS: Blood pressure 120/75, temperature 99.5, T-max past 24 hours was 100.2, respiratory rate improved at 20, O2 sats 95% with 2 L nasal cannula. Her weight is 215 pounds at a bed scale. CV: Regular rate and rhythm. HEENT: Negative. PULMONARY: Crackles, left base. ABDOMEN: Soft. Total intake 810. LABORATORY DATA: White count 6.1, hemoglobin 13.3, hematocrit 41.9, neutrophils percent low at 32. Sodium 134, potassium 4.5, BUN 12, creatinine 0.75, calcium 8.8. BNP on admission was 852. IMPRESSION/PLAN: Viral upper respiratory infection with influenza. Continue with support with albuterol and Tamiflu. Heart failure with reduced ejection fraction, combined systolic and diastolic. 3-pound weight loss since admission. Chest x-ray does demonstrate mild congestive failure. We will continue with beta-oral. Continue with Lasix. I do not see the patient is on MAHSA inhibitor, we will entertain. Creatinine good. The patient's Coreg was recently increased to 6.25 mg b.i.d. Overall plan, change DuoNeb. Discontinue telemetry. Labs in the morning. Continue with aggressive pulmonary support, Tamiflu, oxygen. /[id number]/MODL
[2017-04-03] MEDS: QUEtiapine 25 MG Tab PO SCH (20:11)
[2017-04-04] MEDS: Albuterol/Ipratropium 3.0-0.5 MG/3 ML Neb Soln NEB SCH ×2 (05:45→10:31)
[2017-04-04 06:45] VITALS: BP 113/62
[2017-04-04] MEDS: B.Bifidum/B.Longum/L.Acidophilus/L.Rhamnosus (Probiotic) Cap PO SCH (08:09)
[2017-04-04] MEDS: Oseltamivir 75 MG Cap PO SCH (08:09)
[2017-04-04] MEDS: Acetaminophen 650 MG Tab.ER PO SCH (08:09)
[2017-04-04] MEDS: Potassium Chloride 20 MEQ Tab.ER PO SCH (08:10)
[2017-04-04] MEDS: Polyethylene Glycol 3350 Powder 17 GM Packet PO SCH (08:10)
[2017-04-04] MEDS: Furosemide 40 MG/4 ML VIAL IVPUSH SCH (08:10)
[2017-04-04] MEDS: Cranberry Ext/C/L. Sporogenes Tab PO SCH (08:10)
[2017-04-04] MEDS: Carvedilol 6.25 MG Tab PO SCH (08:11)
[2017-04-04] MEDS: Multivitamins with Minerals/Iron/Folic Acid/Lycopene Tab PO SCH (08:11)
[2017-04-04] MEDS: Aspirin 81 MG Tab.EC PO SCH (08:11)
[2017-04-04] MEDS: Docusate Sodium 100 MG Cap PO SCH (08:11)
[2017-04-04 08:19] LABS: CHLORIDE,CL 100 mmol/L (98-115); SODIUM,NA 140 mmol/L (136-145)
--- NOTE | 2017-04-05 08:16 | DISCH ---
FINAL DIAGNOSES: 1. Influenza A. 2. Acute on chronic congestive heart failure exacerbation. 3. Tachycardia, resolved. 4. Urinary tract infection, now resolved. HOSPITAL COURSE: Hospital course went fairly well. It was determined she was positive for influenza A. she was started on appropriate antiviral Tamiflu. She did have a mild exacerbation of her CHF. Chest x-ray revealed slight congestive heart failure. Her BNP was elevated at 852. We continue with IV Lasix. We will monitor her renal functions closely. She has lost a total of 6 pounds during this hospital stay. Her weight today is 212. She did become tachycardic. Her Coreg was increased to 6.25 mg p.o. b.i.d. We continue with beta-oral. She was requiring some oxygen 1 to 2 L. Her white count was normal on discharge, normal on admission. Hemoglobin 14.0, hematocrit 45.5. Sodium 140, potassium 4.5, BUN 17, creatinine 0.77. She did have a urinary tract infection and was treated with Rocephin, this now resolved. No growth on blood culture surveillance. She was on telemetry, however, that was discontinued. She will require oxygen for one to two weeks post discharge. PHYSICAL EXAM ON DISCHARGE: VITAL SIGNS: Temperature 97.7, heart rate 77, blood pressure 113/62, O2 sats 93% on 2.5 L, respiratory rate 16. LUNGS: Some mild crackles, however, much improved lower bases more on the right side. No JVD. CARDIOVASCULAR: Regular rate and rhythm. DISCHARGE MEDICATIONS: 1. Tamiflu 75 mg daily (renal dose, newly added). 2. Coreg 6.25 mg p.o. b.i.d. (increased this admission). 3. Oxygen 1 to 2 L per nasal cannula to titrate down according to O2 saturations. /[id number]/MODL
== END 2017-04-04 13:50 | DRG 194 ==
LOC: KA.ED 01:25 → KA.MS 03:45
PROVIDERS: ADMIT Physician Assistant; ATTEND Nurse Practitioner Family
DX: J09.X2 Influenza due to identified novel influenza A virus with other respiratory manifestations (principal); N39.0 Urinary tract infection, site not specified; R50.9 Fever, unspecified; I50.9 Heart failure, unspecified; R09.02 Hypoxemia; R00.0 Tachycardia, unspecified; G35 Multiple sclerosis; F03.90 Unspecified dementia, unspecified severity, without behavioral disturbance, psychotic disturbance, mood disturbance, and anxiety; Z88.0 Allergy status to penicillin; Z88.8 Allergy status to other drugs, medicaments and biological substances; Z79.899 Other long term (current) drug therapy; Z87.891 Personal history of nicotine dependence
CPT/HCPCS: 36415; 71046; 80053; 83880; 85027; 87040 ×2; 87804 ×2; 93005; 99285; A9270; J7030; 80048; 81001; 85025; 94640; 99284; J1940; J7620-GY

== ENCOUNTER 2018-09-18 10:55 | Inpatient (IN) | payer MEDICARE, BC ==
[2018-09-18] MEDS ORDERED: Ibuprofen 400 MG Tab PO PRN (11:11)
[2018-09-18] MEDS ORDERED: Sodium Chloride 0.9% 1,000 ML IV SCH (11:15)
[2018-09-18] MEDS ORDERED: diphenhydrAMINE 50 MG/ML SDV IVPUSH SCH ×2 (11:15→12:00)
[2018-09-18] MEDS ORDERED: Piperacillin/Tazobactam/Dext 3.375 GM in Premix Bag 1 BAG IV SCH ×2 (11:15→12:30)
[2018-09-18 11:54] LABS: ANION GAP 12.8 mmol/L (5-15); CHLORIDE,CL 100 mmol/L (98-115); SODIUM,NA 135 mmol/L (136-145)
--- NOTE | 2018-09-18 11:58 | CR ---
[id number] RAD/RAD Chest PA And Lateral EXAM: RAD Chest PA And Lateral INDICATION: FEVER, TACHYCARDIA, PNEUMONIA. COMPARISON: 03/31/2017. DISCUSSION: Cardiomediastinal silhouette is increased but stable in size. Pulmonary vascular congestion. Small left and trace right pleural effusions. No pneumothorax. IMPRESSION: Pulmonary vascular congestion the setting of cardiomegaly with small left and trace right pleural effusions. Underlying infiltrate is not completely excluded. Kelvin Pires DO 09/18/18 1156 Thank you for allowing us to participate in the care of your patient.
[2018-09-18] MEDS: Albuterol/Ipratropium 3.0-0.5 MG/3 ML Neb Soln NEB SCH ×3 (12:18→23:02)
[2018-09-18] MEDS ORDERED: Furosemide 40 MG/4 ML VIAL IVPUSH ONE ×2 (13:00→22:36)
[2018-09-18] MEDS ORDERED: Metoprolol Tartrate 5 MG/5 ML SDV IVPUSH ONE (13:00)
[2018-09-18] MEDS ORDERED: guaiFENesin 600 MG Tab.ER PO PRN (13:20)
[2018-09-18] MEDS ORDERED: Magnesium Hydroxide 400 MG/5 ML Susp 30 ML Cup PO PRN (13:20)
[2018-09-18] MEDS ORDERED: Nystatin Topical Powder 15 GM Bottle TOP PRN (13:20)
[2018-09-18] MEDS: Sodium Chloride 0.9% 10 ML Syringe FLUSH PRN (14:00)
[2018-09-18] MEDS: Acetaminophen 650 MG Tab.ER PO SCH ×2 (15:07→21:13)
[2018-09-18] MEDS ORDERED: Metoprolol Tartrate 5 MG/5 ML SDV IVPUSH PRN (15:08)
[2018-09-18] MEDS ORDERED: Nitroglycerin 0.4 MG Tab.SL SL PRN (15:10)
[2018-09-18] MEDS ORDERED: Lidocaine 2% 100 MG/5 ML Syringe IVPUSH PRN (15:10)
[2018-09-18] MEDS ORDERED: Atropine 0.1 MG/ML 10 ML Syringe IVPUSH PRN (15:10)
[2018-09-18] MEDS ORDERED: EPINEPHrine 1:10,000 1 MG/10 ML Syringe IVPUSH PRN (15:10)
[2018-09-18] MEDS ORDERED: cefTRIAXone 1 GM Vial IVPUSH SCH (15:15)
[2018-09-18] MEDS ORDERED: Albuterol/Ipratropium 3.0-0.5 MG/3 ML Neb Soln NEB SCH (17:00)
[2018-09-18] MEDS: Carvedilol 6.25 MG Tab PO SCH (18:27)
[2018-09-18] MEDS: cefTRIAXone 1 GM Vial IVPUSH SCH (18:27)
[2018-09-18] MEDS ORDERED: Acetaminophen 650 MG Supp RECTAL ONE (18:33)
[2018-09-18 19:00] LABS: O2 DELIVERY DEVICE NASAL CANNULA; PCO2 ARTERIAL 48 mmHG (35-45); PO2 ARTERIAL 69 mmHG (80-105)
[2018-09-18 19:01] LABS: BASE EXCESS ARTERIAL 5 mmol/L (-2-3); BICARBONATE,ARTERIAL 29.7 mmol/L (22-26); O2 SATURATION ARTERIAL 93 % (95-98)
[2018-09-18] MEDS ORDERED: CELLWISE PO SCH (21:00)
[2018-09-18] MEDS: B.Bifidum/B.Longum/L.Acidophilus/L.Rhamnosus (Probiotic) Cap PO SCH (21:13)
[2018-09-18] MEDS: Docusate Sodium 100 MG Cap PO SCH (21:13)
[2018-09-18] MEDS: Multivitamins with Minerals/Iron/Folic Acid/Lycopene Tab PO SCH (21:13)
[2018-09-18] MEDS: Nystatin Topical Powder 15 GM Bottle TOP SCH (22:11)
[2018-09-18] MEDS: Enoxaparin 100 MG/1 ML Syringe SUBCUT SCH (23:02)
[2018-09-19] MEDS: Albuterol/Ipratropium 3.0-0.5 MG/3 ML Neb Soln NEB SCH ×4 (04:47→23:03)
[2018-09-19] MEDS: Carvedilol 6.25 MG Tab PO SCH ×2 (08:20→18:33)
[2018-09-19] MEDS: Docusate Sodium 100 MG Cap PO SCH ×2 (08:41→20:23)
[2018-09-19] MEDS: B.Bifidum/B.Longum/L.Acidophilus/L.Rhamnosus (Probiotic) Cap PO SCH ×2 (08:41→20:23)
[2018-09-19] MEDS: Multivitamins with Minerals/Iron/Folic Acid/Lycopene Tab PO SCH ×2 (08:42→20:23)
[2018-09-19] MEDS: Potassium Chloride 20 MEQ Tab.ER PO SCH (08:42)
[2018-09-19] MEDS: Acetaminophen 650 MG Tab.ER PO SCH ×3 (08:42→20:23)
[2018-09-19] MEDS: Enoxaparin 100 MG/1 ML Syringe SUBCUT SCH ×2 (08:43→20:22)
[2018-09-19] MEDS: Loratadine 10 MG Tab PO SCH (08:43)
[2018-09-19] MEDS: Cranberry Ext/C/L. Sporogenes Tab PO SCH (08:56)
[2018-09-19] MEDS: Polyethylene Glycol 3350 Powder 17 GM Packet PO SCH (08:56)
[2018-09-19] MEDS: Nystatin Topical Powder 15 GM Bottle TOP SCH ×2 (08:57→21:04)
[2018-09-19] MEDS ORDERED: [UNRECOGNIZED DRUG - OTHER] PO SCH (09:00)
[2018-09-19] MEDS ORDERED: Aspirin 81 MG Tab.EC PO SCH (09:00)
[2018-09-19] MEDS ORDERED: Furosemide 40 MG Tab PO SCH (09:00)
--- NOTE | 2018-09-19 09:25 | PN ---
09/18/2018 PATIENT NAME: BRENDA SHAH The patient is an 83-year-old patient who was admitted this morning because of difficulty breathing, elevated temperature, and generally not doing well. She has not been very responsive. She has a past history of coronary artery disease, congestive heart failure, multiple sclerosis, hypertension, and tachycardia. At the time of my examination of this patient, she appears to be not very responsive. She does arouse with stimulation. She has a stertorous breathing mostly due to congestion at the throat. Face color is stable. Neck is supple. Jugular veins are slightly enlarged. Thyroid gland is not enlarged. Lungs reveal a few crackles bilaterally. Breath sounds are rough. Heart, tachycardic rhythm. Faint grade 1/6 systolic murmur at the apex. Abdomen is soft. Extremities, 1+ pitting edema. I have reviewed the chart. The patient has had 1500 mL out and 673 mL in. Her blood pressure is 116/61. Pulse is 106. She did receive a dose of metoprolol IV. She takes carvedilol, also beta oral. Her laboratory data otherwise indicates that her hemoglobin is 13, white count is 21.27. Her BNP is high at 949. BUN and creatinine are normal. Blood gases done recently revealed pH of 7.40, pCO2 of 48, pO2 of 69; bicarbonate of 29.7, normal up to 26, by way of nasal cannula. FINAL DIAGNOSES: The patient has obvious respiratory difficulty, probably combination of infectious process as well as congestive heart failure. X-ray shows bilateral pleural effusions, but no definite infiltrate. She is currently receiving Rocephin and vancomycin. She did receive 40 mg of Lasix earlier and her output was good. I think we will go ahead and give another dose of Lasix 20 mg IV at this time. Continue close observation. Overall condition of the patient is still very critical. We will repeat a CBC in the morning. Blood gases if necessary. /[id number]/MODL
--- NOTE | 2018-09-19 10:12 | PCM.PN ---
- General Info Date of Service: 09/19/18 Functional Status: Reports: Urinating (Tucker catheter). Denies: Tolerating Diet , Ambulating, Incentive Spirometry - Review of Systems Pulmonary: Reports: Cough, Sputum. Denies: Wheezing Cardiovascular: Denies: Chest Pain, Edema Gastrointestinal: Reports: No Symptoms Genitourinary: Reports: No Symptoms Musculoskeletal: Reports: No Symptoms Skin: Reports: Pallor Neurological: Reports: Confusion, Weakness Psychiatric: Reports: Confusion. Denies: Agitation - Patient Data Vitals - Most Recent: Last Vital Signs Temp 98.2 F 09/19/18 06:52 Pulse 90 09/19/18 08:20 Resp 24 H 09/19/18 06:52 BP 120/62 09/19/18 08:20 Pulse Ox 95 09/19/18 06:52 Weight - Most Recent: 210 lb 7 oz I&O - Last 24 Hours: Intake & Output 09/18/18 09/19/18 09/19/18 22:59 06:59 14:59 Intake Total 540 597 Output Total 1200 400 Balance -660 197 Lab Results Last 24 Hours: Laboratory Results - last 24 hr 09/18/18 09/18/18 09/18/18 Range/Units 10:59 11:00 11:00 WBC 21.27 H (5.00-10.00) 10^3/uL RBC 4.02 (3.80-5.50) 10^6/uL Hgb 13.1 (12.0-16.0) g/dL Hct 39.7 (37.0-47.0) % MCV 98.8 H (82.0-92.0) fL MCH 32.6 H (27.0-31.0) pg MCHC 33.0 (32.0-36.0) g/dL RDW 13.7 (11.5-14.5) % Plt Count 372 (150-400) 10^3/uL MPV 9.4 (7.4-10.4) fL Immature Gran % (Auto) 0.5 (0.0-5.0) % Neut % (Auto) 82.8 H (50.0-70.0) % Lymph % (Auto) 10.9 L (20.0-40.0) % Jay % (Auto) 5.7 (2.0-8.0) % Eos % (Auto) 0.0 L (1.0-3.0) % Baso % (Auto) 0.1 (0.0-1.0) % Immature Gran # (Auto) 0.10 (0.00-0.50) 10^3/uL Neut # (Auto) 17.63 H (2.50-7.00) 10^3/uL Lymph # (Auto) 2.31 (1.00-4.00) 10^3/uL Jay # (Auto) 1.21 H (0.10-0.80) 10^3/uL Eos # (Auto) 0.00 L (0.10-0.30) 10^3/uL Baso # (Auto) 0.02 (0.00-0.10) 10^3/uL ABG pH (7.35-7.45) ABG pCO2 (35-45) mmHG ABG pO2 (80-105) mmHG ABG HCO3 (22-26) mmol/L ABG Total CO2 (23-27) mmol/L ABG O2 Saturation (95-98) % ABG Base Excess (-2-3) mmol/L O2 Delivery Device Sodium 135 L (136-145) mmol/L Potassium 3.9 (3.3-5.3) mmol/L Chloride 100 (98-115) mmol/L Carbon Dioxide 26.1 (21.0-32.0) mmol/L Anion Gap 12.8 (5-15) mmol/L BUN 7 (6-25) mg/dL Creatinine 0.52 (0.51-1.17) mg/dL Est Cr Clr Drug Dosing TNP Estimated GFR (MDRD) > 60 mL/min Glucose 128 H (75 - 99) mg/dL Lactic Acid 1.1 (0.4-2.0) mmol/L Calcium 8.7 (8.7-10.3) mg/dL Total Bilirubin 0.4 (0.2-1.0) mg/dL AST 19 (15-37) U/L ALT 18 (12-78) U/L Alkaline Phosphatase 81 (46-116) IU/L Troponin I < 0.04 (0.00-0.070) ng/mL B-Natriuretic Peptide (0-100) pg/mL Total Protein 8.5 H (6.4-8.2) g/dL Albumin 2.87 L (3.00-4.80) g/dL Specimen Type Urine Color (YELLOW) Urine Appearance (CLEAR) Urine pH (5.0-9.0) Ur Specific [place] (1.005-1.030) Urine Protein (NEGATIVE) mg/dL Urine Glucose (UA) (NEGATIVE) mg/dL Urine Ketones (NEGATIVE) mg/dL Urine Occult Blood (NEGATIVE) Urine Nitrite (NEGATIVE) Urine Bilirubin (NEGATIVE) Urine Urobilinogen (0.2-1.0) E.U./dL Ur Leukocyte Esterase (NEGATIVE) Urine RBC (0-5) /HPF Urine WBC (0-5) /HPF Ur Epithelial Cells /LPF Urine Bacteria (NONE TO FEW) /HPF 09/18/18 09/18/18 09/18/18 Range/Units 11:00 12:40 18:55 WBC (5.00-10.00) 10^3/uL RBC (3.80-5.50) 10^6/uL Hgb (12.0-16.0) g/dL Hct (37.0-47.0) % MCV (82.0-92.0) fL MCH (27.0-31.0) pg MCHC (32.0-36.0) g/dL RDW (11.5-14.5) % Plt Count (150-400) 10^3/uL MPV (7.4-10.4) fL Immature Gran % (Auto) (0.0-5.0) % Neut % (Auto) (50.0-70.0) % Lymph % (Auto) (20.0-40.0) % Jay % (Auto) (2.0-8.0) % Eos % (Auto) (1.0-3.0) % Baso % (Auto) (0.0-1.0) % Immature Gran # (Auto) (0.00-0.50) 10^3/uL Neut # (Auto) (2.50-7.00) 10^3/uL Lymph # (Auto) (1.00-4.00) 10^3/uL Jay # (Auto) (0.10-0.80) 10^3/uL Eos # (Auto) (0.10-0.30) 10^3/uL Baso # (Auto) (0.00-0.10) 10^3/uL ABG pH 7.40 (7.35-7.45) ABG pCO2 48 H (35-45) mmHG ABG pO2 69 L (80-105) mmHG ABG HCO3 29.7 H (22-26) mmol/L ABG Total CO2 31 H (23-27) mmol/L ABG O2 Saturation 93 L (95-98) % ABG Base Excess 5 H (-2-3) mmol/L O2 Delivery Device Nasal cannula Sodium (136-145) mmol/L Potassium (3.3-5.3) mmol/L Chloride (98-115) mmol/L Carbon Dioxide (21.0-32.0) mmol/L Anion Gap (5-15) mmol/L BUN (6-25) mg/dL Creatinine (0.51-1.17) mg/dL Est Cr Clr Drug Dosing Estimated GFR (MDRD) mL/min Glucose (75 - 99) mg/dL Lactic Acid (0.4-2.0) mmol/L Calcium (8.7-10.3) mg/dL Total Bilirubin (0.2-1.0) mg/dL AST (15-37) U/L ALT (12-78) U/L Alkaline Phosphatase (46-116) IU/L Troponin I (0.00-0.070) ng/mL B-Natriuretic Peptide 949 H (0-100) pg/mL Total Protein (6.4-8.2) g/dL Albumin (3.00-4.80) g/dL Specimen Type [place] Urine Color Light yellow (YELLOW) Urine Appearance Slightly cloudy H (CLEAR) Urine pH 7.0 (5.0-9.0) Ur Specific [place] 1.015 (1.005-1.030) Urine Protein 30 H (NEGATIVE) mg/dL Urine Glucose (UA) Negative (NEGATIVE) mg/dL Urine Ketones Trace H (NEGATIVE) mg/dL Urine Occult Blood Moderate H (NEGATIVE) Urine Nitrite Negative (NEGATIVE) Urine Bilirubin Negative (NEGATIVE) Urine Urobilinogen 0.2 (0.2-1.0) E.U./dL Ur Leukocyte Esterase Large H (NEGATIVE) Urine RBC 5-10 H (0-5) /HPF Urine WBC Packed (0-5) /HPF Ur Epithelial Cells Occasional /LPF Urine Bacteria Many H (NONE TO FEW) /HPF 09/19/18 Range/Units 07:20 WBC 19.11 H (5.00-10.00) 10^3/uL RBC 3.57 L (3.80-5.50) 10^6/uL Hgb 11.7 L (12.0-16.0) g/dL Hct 36.8 L (37.0-47.0) % MCV 103.1 H D (82.0-92.0) fL MCH 32.8 H (27.0-31.0) pg MCHC 31.8 L (32.0-36.0) g/dL RDW 14.1 (11.5-14.5) % Plt Count 323 (150-400) 10^3/uL MPV 9.2 (7.4-10.4) fL Immature Gran % (Auto) 0.3 (0.0-5.0) % Neut % (Auto) 75.1 H (50.0-70.0) % Lymph % (Auto) 16.8 L (20.0-40.0) % Jay % (Auto) 7.7 (2.0-8.0) % Eos % (Auto) 0.0 L (1.0-3.0) % Baso % (Auto) 0.1 (0.0-1.0) % Immature Gran # (Auto) 0.05 (0.00-0.50) 10^3/uL Neut # (Auto) 14.36 H (2.50-7.00) 10^3/uL Lymph # (Auto) 3.21 (1.00-4.00) 10^3/uL Jay # (Auto) 1.48 H (0.10-0.80) 10^3/uL Eos # (Auto) 0.00 L (0.10-0.30) 10^3/uL Baso # (Auto) 0.01 (0.00-0.10) 10^3/uL ABG pH (7.35-7.45) ABG pCO2 (35-45) mmHG ABG pO2 (80-105) mmHG ABG HCO3 (22-26) mmol/L ABG Total CO2 (23-27) mmol/L ABG O2 Saturation (95-98) % ABG Base Excess (-2-3) mmol/L O2 Delivery Device Sodium (136-145) mmol/L Potassium (3.3-5.3) mmol/L Chloride (98-115) mmol/L Carbon Dioxide (21.0-32.0) mmol/L Anion Gap (5-15) mmol/L BUN (6-25) mg/dL Creatinine (0.51-1.17) mg/dL Est Cr Clr Drug Dosing Estimated GFR (MDRD) mL/min Glucose (75 - 99) mg/dL Lactic Acid (0.4-2.0) mmol/L Calcium (8.7-10.3) mg/dL Total Bilirubin (0.2-1.0) mg/dL AST (15-37) U/L ALT (12-78) U/L Alkaline Phosphatase (46-116) IU/L Troponin I (0.00-0.070) ng/mL B-Natriuretic Peptide (0-100) pg/mL Total Protein (6.4-8.2) g/dL Albumin (3.00-4.80) g/dL Specimen Type Urine Color (YELLOW) Urine Appearance (CLEAR) Urine pH (5.0-9.0) Ur Specific [place] (1.005-1.030) Urine Protein (NEGATIVE) mg/dL Urine Glucose (UA) (NEGATIVE) mg/dL Urine Ketones (NEGATIVE) mg/dL Urine Occult Blood (NEGATIVE) Urine Nitrite (NEGATIVE) Urine Bilirubin (NEGATIVE) Urine Urobilinogen (0.2-1.0) E.U./dL Ur Leukocyte Esterase (NEGATIVE) Urine RBC (0-5) /HPF Urine WBC (0-5) /HPF Ur Epithelial Cells /LPF Urine Bacteria (NONE TO FEW) /HPF Med Orders - Current: Current Medications Acetaminophen (Tylenol Arthritis Pain) 650 mg PO TID [facility] Last Admin: 09/19/18 08:42 Dose: 650 mg Albuterol/Ipratropium (Duoneb 3.0-0.5 Mg/3 Ml) 3 ml NEB Q6HRRT [facility] Last Admin: 09/19/18 04:47 Dose: 3 ml Aspirin (Halfprin) 81 mg PO DAILY [facility] Last Admin: 09/19/18 08:43 Dose: 81 mg Atropine Sulfate (Atropine 0.1 Mg/Ml) 0 mg IVPUSH ASDIRECTED PRN PRN Reason: Heart. Carvedilol (Coreg) 6.25 mg PO BIDMEALS [facility] Last Admin: 09/19/18 08:20 Dose: 6.25 mg Ceftriaxone Sodium (Rocephin) 1 gm IVPUSH Q24H [facility] Last Admin: 09/18/18 18:27 Dose: 1 gm Cranberry (Azo Cranberry) 2 each PO DAILY [facility] Last Admin: 09/19/18 08:56 Dose: 2 each Docusate Sodium (Colace) 100 mg PO BID [facility] Last Admin: 09/19/18 08:41 Dose: 100 mg Enoxaparin Sodium (Lovenox) 100 mg SUBCUT BID [facility] Last Admin: 09/19/18 08:43 Dose: 100 mg Epinephrine HCl (Epinephrine 1:10,000) 1 mg IVPUSH ASDIRECTED PRN PRN Reason: Heart. Furosemide (Lasix) 40 mg PO DAILY [facility] Guaifenesin (Mucinex) 600 mg PO BID PRN PRN Reason: Cough Sodium Chloride (Normal Saline) 1,000 mls @ 50 mls/hr IV ASDIRECTED [facility] Last Admin: 09/18/18 12:16 Dose: 50 mls/hr Vancomycin HCl 1.25 gm/ Sodium (Chloride) 250 mls @ 120 mls/hr IV Q12H [facility] Last Admin: 09/19/18 01:51 Dose: 120 mls/hr Ibuprofen (Motrin) 400 mg PO Q6H PRN PRN Reason: Fever Lactobacillus Acidophilus/Rhamnosus (Multi-Penelope Plus) 1 cap PO BID [facility] Last Admin: 09/19/18 08:41 Dose: 1 cap Lidocaine HCl (Xylocaine 2%) 0 mg IVPUSH ASDIRECTED PRN PRN Reason: Heart. Loratadine (Claritin) 10 mg PO DAILY [facility] Last Admin: 09/19/18 08:43 Dose: 10 mg Magnesium Hydroxide (Milk Of Magnesia) 30 ml PO DAILY PRN PRN Reason: Constipation Metoprolol Tartrate (Lopressor) 2.5 mg IVPUSH Q6H PRN PRN Reason: Tachycardia Multivitamins/Minerals (Centrum) 1 tab PO BID [facility] Last Admin: 09/19/18 08:42 Dose: 1 tab Nitroglycerin (Nitrostat) 0.4 mg SL ASDIRECTED PRN PRN Reason: Heart. Nystatin (Nystop) 0 gm TOP BID [facility] Last Admin: 09/19/18 08:57 Dose: 1 applic Nystatin (Nystop) 0 gm TOP TID PRN PRN Reason: skin irritation Polyethylene Glycol (Miralax) 17 gm PO Q2D [facility] Last Admin: 09/19/18 08:56 Dose: 17 gm Potassium Chloride (Klor-Con M20) 20 meq PO DAILY [facility] Last Admin: 09/19/18 08:42 Dose: 20 meq Sodium Chloride (Saline Flush) 10 ml FLUSH Q8HR PRN PRN Reason: keep vein open Last Admin: 09/18/18 14:00 Dose: 10 ml Vancomycin HCl (Pharmacy To Dose - Vancomycin) 1 dose .XX ASDIRECTED [facility] Discontinued Medications Acetaminophen (Tylenol) 650 mg RECTAL NOW ONE Stop: 09/18/18 18:34 Last Admin: 09/18/18 19:07 Dose: 650 mg Albuterol/Ipratropium (Duoneb 3.0-0.5 Mg/3 Ml) 3 ml NEB Q6HRRT [facility] Ceftriaxone Sodium (Rocephin) 1 gm IVPUSH Q24H [facility] Last Admin: 09/18/18 16:16 Dose: Not Given Diphenhydramine HCl (Benadryl) 25 mg IVPUSH Q6H [facility] Last Admin: 09/18/18 13:02 Dose: Not Given Diphenhydramine HCl (Benadryl) 25 mg IVPUSH Q6H [facility] Last Admin: 09/18/18 12:30 Dose: 25 mg Furosemide (Lasix) 40 mg IVPUSH NOW ONE Stop: 09/18/18 13:01 Last Admin: 09/18/18 14:00 Dose: 40 mg Furosemide (Lasix) 20 mg IVPUSH NOW ONE Stop: 09/18/18 22:37 Last Admin: 09/18/18 23:02 Dose: 20 mg Piperacillin/Tazobactam/ (Dextrose 3.375 gm/ Premix) 50 mls @ 100 mls/hr IV Q6H [facility] Last Admin: 09/18/18 13:03 Dose: Not Given Piperacillin/Tazobactam/ (Dextrose 3.375 gm/ Premix) 50 mls @ 100 mls/hr IV Q6H [facility] Last Admin: 09/18/18 13:09 Dose: 100 mls/hr Metoprolol Tartrate (Lopressor) 2.5 mg IVPUSH ONETIME ONE Stop: 09/18/18 13:01 Last Admin: 09/18/18 14:13 Dose: 2.5 mg - Exam Quality Assessment: Supplemental Oxygen, DVT Prophylaxis General: Alert, Oriented (Oriented today to name, place,), Cooperative Neck: No: JVD Lungs: Crackles (While crackles bilateral bases, expiratory:inspirtory ration 3: 1). No: Normal Respiratory Effort, Wheezing Cardiovascular: Murmurs. No: Tachycardia GI/Abdominal Exam: Soft, Non-Tender Back Exam: No: CVA Tenderness (L), CVA Tenderness (R) Extremities: No Pedal Edema Peripheral Pulses: 2+: Radial (L), Radial (R) Skin: Dry Neurological: Normal Speech, Other (Right wrist contractures) Psy/Mental Status: Alert, Labile Mood. No: Anxious - Problem List Review Problem List Initiated/Reviewed/Updated: Yes - Plan Plan:: Brief history summary 83 y/o female resident of a resident of [address] [place] [address] was admitted yesterday by Sreekanth Josue PA-C with symptoms suggested of pneumonia as the patient did have documented temperature 100.8, tachycardia, wheezing or coughing and hypoxia. Update on rounds/nursing Patient more alert and responding, tachycardia resolved, diuresing well Primary hospital problems Urinary tract infection, comorbid conditions with MS, neurogenic bladder HFpEF, minimally preserved EF 45%, acute on chronic, diastolic, elevated BNP, Pleural effusions, Small, HF attributable. Chronic medical problems multiple sclerosis neurogenic bladder QTc prolongation Dementia-related psychosis Obesity MRSA Disposition/overall plan --Continue with inpatient status --Blood culture surveillance, urine culture pending, --continue Rocephin, --pulmonary toileting, may benefit from UTI prophylaxis upon discharge in light of her comorbid conditions with MS and neurogenic bladder. --Continue diuretic therapy with dwelling Tucker catheter at this time to assess adequate urinary output and to ensure bladder decompression. --Add low-sodium diet --discontinue IV fluids, --discontinue telemetry --PT to demonstrate to patient and staff limb exercises. --discontinue ASA, likely more risk than benefit --Continue carvedilol as likely not contributable to acute heart failure --Labs added procalcitonin, ESR, --Labs in am. --DVT prophylaxis, LMWH, SCD's
[2018-09-19] MEDS ORDERED: Furosemide 40 MG/4 ML VIAL IVPUSH ONE (11:03)
[2018-09-19] MEDS: Sodium Chloride 0.9% 10 ML Syringe FLUSH PRN (11:35)
[2018-09-19] MEDS: cefTRIAXone 1 GM Vial IVPUSH SCH (18:34)
[2018-09-20] MEDS: Albuterol/Ipratropium 3.0-0.5 MG/3 ML Neb Soln NEB SCH ×4 (05:45→23:17)
[2018-09-20 07:34] LABS: ANION GAP 9.4 mmol/L (5-15); CHLORIDE,CL 102 mmol/L (98-115); SODIUM,NA 138 mmol/L (136-145)
[2018-09-20] MEDS: Acetaminophen 650 MG Tab.ER PO SCH ×3 (08:36→20:47)
[2018-09-20] MEDS: Docusate Sodium 100 MG Cap PO SCH ×2 (08:36→20:47)
[2018-09-20] MEDS: B.Bifidum/B.Longum/L.Acidophilus/L.Rhamnosus (Probiotic) Cap PO SCH ×2 (08:36→20:47)
[2018-09-20] MEDS: Nystatin Topical Powder 15 GM Bottle TOP SCH ×2 (08:36→20:49)
[2018-09-20] MEDS: Cranberry Ext/C/L. Sporogenes Tab PO SCH (08:37)
[2018-09-20] MEDS: Multivitamins with Minerals/Iron/Folic Acid/Lycopene Tab PO SCH ×2 (08:37→20:47)
[2018-09-20] MEDS: Potassium Chloride 20 MEQ Tab.ER PO SCH (08:37)
[2018-09-20] MEDS: Carvedilol 6.25 MG Tab PO SCH ×2 (08:37→17:58)
[2018-09-20] MEDS: Loratadine 10 MG Tab PO SCH (08:37)
[2018-09-20] MEDS: Enoxaparin 100 MG/1 ML Syringe SUBCUT SCH (08:38)
--- NOTE | 2018-09-20 10:15 | PCM.PN ---
- General Info Date of Service: 09/20/18 Functional Status: Reports: Pain Controlled, Tolerating Diet, Urinating, Incentive Spirometry. Denies: Ambulating, New Symptoms - Review of Systems General: Reports: Weakness. Denies: Fever, Chills, Night Sweats HEENT: Reports: No Symptoms Pulmonary: Reports: Cough Cardiovascular: Reports: Edema (1+ lower extremities) Gastrointestinal: Reports: No Symptoms Genitourinary: Reports: Other (Tucker catheter) Musculoskeletal: Reports: No Symptoms Skin: Reports: Pallor Neurological: Denies: Confusion Psychiatric: Denies: Confusion, Mood Lability, Anxiety, Agitation, Hallucinations - Patient Data Vitals - Most Recent: Last Vital Signs Temp 98.1 F 09/20/18 06:19 Pulse 109 H 09/20/18 08:37 Resp 32 H 09/20/18 08:00 BP 141/79 H 09/20/18 08:37 Pulse Ox 97 09/20/18 09:00 Weight - Most Recent: 208 lb 9 oz I&O - Last 24 Hours: Intake & Output 09/19/18 09/20/18 09/20/18 22:59 06:59 14:59 Intake Total 620 0 Output Total 250 300 Balance 370 -300 Lab Results Last 24 Hours: Laboratory Results - last 24 hr 09/19/18 09/19/18 09/20/18 Range/Units 07:20 07:20 07:00 WBC (5.00-10.00) 10^3/uL RBC (3.80-5.50) 10^6/uL Hgb (12.0-16.0) g/dL Hct (37.0-47.0) % MCV (82.0-92.0) fL MCH (27.0-31.0) pg MCHC (32.0-36.0) g/dL RDW (11.5-14.5) % Plt Count (150-400) 10^3/uL MPV (7.4-10.4) fL Immature Gran % (Auto) (0.0-5.0) % Neut % (Auto) (50.0-70.0) % Lymph % (Auto) (20.0-40.0) % [place] % (Auto) (2.0-8.0) % Eos % (Auto) (1.0-3.0) % Baso % (Auto) (0.0-1.0) % Immature Gran # (Auto) (0.00-0.50) 10^3/uL Neut # (Auto) (2.50-7.00) 10^3/uL Lymph # (Auto) (1.00-4.00) 10^3/uL [place] # (Auto) (0.10-0.80) 10^3/uL Eos # (Auto) (0.10-0.30) 10^3/uL Baso # (Auto) (0.00-0.10) 10^3/uL ESR 117 H (0-20) mm/hr Sodium 138 (136-145) mmol/L Potassium 4.1 (3.3-5.3) mmol/L Chloride 102 (98-115) mmol/L Carbon Dioxide 30.7 (21.0-32.0) mmol/L Anion Gap 9.4 (5-15) mmol/L BUN 13 (6-25) mg/dL Creatinine 0.57 (0.51-1.17) mg/dL Est Cr Clr Drug Dosing 68.47 mL/min Estimated GFR (MDRD) > 60 mL/min Glucose 118 H (75 - 99) mg/dL Calcium 8.9 (8.7-10.3) mg/dL Procalcitonin 0.31 H (<0.10) ng/mL 09/20/18 Range/Units 07:00 WBC 14.49 H (5.00-10.00) 10^3/uL RBC 3.79 L (3.80-5.50) 10^6/uL Hgb 12.5 (12.0-16.0) g/dL Hct 38.5 (37.0-47.0) % MCV 101.6 H (82.0-92.0) fL MCH 33.0 H (27.0-31.0) pg MCHC 32.5 (32.0-36.0) g/dL RDW 13.9 (11.5-14.5) % Plt Count 365 (150-400) 10^3/uL MPV 9.5 (7.4-10.4) fL Immature Gran % (Auto) 0.3 (0.0-5.0) % Neut % (Auto) 70.4 H (50.0-70.0) % Lymph % (Auto) 19.8 L (20.0-40.0) % [place] % (Auto) 9.4 H (2.0-8.0) % Eos % (Auto) 0.0 L (1.0-3.0) % Baso % (Auto) 0.1 (0.0-1.0) % Immature Gran # (Auto) 0.04 (0.00-0.50) 10^3/uL Neut # (Auto) 10.21 H (2.50-7.00) 10^3/uL Lymph # (Auto) 2.87 (1.00-4.00) 10^3/uL [place] # (Auto) 1.36 H (0.10-0.80) 10^3/uL Eos # (Auto) 0.00 L (0.10-0.30) 10^3/uL Baso # (Auto) 0.01 (0.00-0.10) 10^3/uL ESR (0-20) mm/hr Sodium (136-145) mmol/L Potassium (3.3-5.3) mmol/L Chloride (98-115) mmol/L Carbon Dioxide (21.0-32.0) mmol/L Anion Gap (5-15) mmol/L BUN (6-25) mg/dL Creatinine (0.51-1.17) mg/dL Est Cr Clr Drug Dosing mL/min Estimated GFR (MDRD) mL/min Glucose (75 - 99) mg/dL Calcium (8.7-10.3) mg/dL Procalcitonin (<0.10) ng/mL Jose Results Last 24 Hours: Microbiology 09/18/18 12:12 Aerobic Blood Culture - Preliminary Blood - Venous NO GROWTH AFTER 1 DAY Anaerobic Blood Culture - Preliminary NO GROWTH AFTER 1 DAY 09/18/18 12:05 Aerobic Blood Culture - Preliminary Blood NO GROWTH AFTER 1 DAY Anaerobic Blood Culture - Preliminary NO GROWTH AFTER 1 DAY 09/18/18 12:40 Urine Culture - Final Urine, Catheterized MIXED LAURA SUGGESTIVE OF CONTAMINATION. Med Orders - Current: Current Medications Acetaminophen (Tylenol Arthritis Pain) 650 mg PO TID [facility] Last Admin: 09/20/18 08:36 Dose: 650 mg Albuterol/Ipratropium (Duoneb 3.0-0.5 Mg/3 Ml) 3 ml NEB Q6HRRT [facility] Last Admin: 09/20/18 05:45 Dose: 3 ml Carvedilol (Coreg) 6.25 mg PO BIDMEALS [facility] Last Admin: 09/20/18 08:37 Dose: 6.25 mg Ceftriaxone Sodium (Rocephin) 1 gm IVPUSH Q24H [facility] Last Admin: 09/19/18 18:34 Dose: 1 gm Cranberry (Azo Cranberry) 2 each PO DAILY [facility] Last Admin: 09/20/18 08:37 Dose: 2 each Docusate Sodium (Colace) 100 mg PO BID [facility] Last Admin: 09/20/18 08:36 Dose: 100 mg Enoxaparin Sodium (Lovenox) 40 mg SUBCUT DAILY [facility] Guaifenesin (Mucinex) 600 mg PO BID PRN PRN Reason: Cough Vancomycin HCl 1.25 gm/ Sodium (Chloride) 250 mls @ 120 mls/hr IV Q12H [facility] Last Admin: 09/20/18 01:41 Dose: 120 mls/hr Ibuprofen (Motrin) 400 mg PO Q6H PRN PRN Reason: Fever Lactobacillus Acidophilus/Rhamnosus (Multi-Laura Plus) 1 cap PO BID [facility] Last Admin: 09/20/18 08:36 Dose: 1 cap Loratadine (Claritin) 10 mg PO DAILY [facility] Last Admin: 09/20/18 08:37 Dose: 10 mg Magnesium Hydroxide (Milk Of Magnesia) 30 ml PO DAILY PRN PRN Reason: Constipation Metoprolol Tartrate (Lopressor) 2.5 mg IVPUSH Q6H PRN PRN Reason: Tachycardia Multivitamins/Minerals (Centrum) 1 tab PO BID [facility] Last Admin: 09/20/18 08:37 Dose: 1 tab Nystatin (Nystop) 0 gm TOP BID [facility] Last Admin: 09/20/18 08:36 Dose: 1 applic Nystatin (Nystop) 0 gm TOP TID PRN PRN Reason: skin irritation Polyethylene Glycol (Miralax) 17 gm PO Q2D [facility] Last Admin: 09/19/18 08:56 Dose: 17 gm Potassium Chloride (Klor-Con M20) 20 meq PO DAILY [facility] Last Admin: 09/20/18 08:37 Dose: 20 meq Sodium Chloride (Saline Flush) 10 ml FLUSH Q8HR PRN PRN Reason: keep vein open Last Admin: 09/19/18 11:35 Dose: 10 ml Vancomycin HCl (Pharmacy To Dose - Vancomycin) 1 dose .XX ASDIRECTED [facility] Discontinued Medications Acetaminophen (Tylenol) 650 mg RECTAL NOW ONE Stop: 09/18/18 18:34 Last Admin: 09/18/18 19:07 Dose: 650 mg Albuterol/Ipratropium (Duoneb 3.0-0.5 Mg/3 Ml) 3 ml NEB Q6HRRT [facility] Aspirin (Halfprin) 81 mg PO DAILY [facility] Last Admin: 09/19/18 08:43 Dose: 81 mg Atropine Sulfate (Atropine 0.1 Mg/Ml) 0 mg IVPUSH ASDIRECTED PRN PRN Reason: Heart. Ceftriaxone Sodium (Rocephin) 1 gm IVPUSH Q24H [facility] Last Admin: 09/18/18 16:16 Dose: Not Given Diphenhydramine HCl (Benadryl) 25 mg IVPUSH Q6H [facility] Last Admin: 09/18/18 13:02 Dose: Not Given Diphenhydramine HCl (Benadryl) 25 mg IVPUSH Q6H [facility] Last Admin: 09/18/18 12:30 Dose: 25 mg Enoxaparin Sodium (Lovenox) 100 mg SUBCUT BID [facility] Last Admin: 09/20/18 08:38 Dose: 100 mg Epinephrine HCl (Epinephrine 1:10,000) 1 mg IVPUSH ASDIRECTED PRN PRN Reason: Heart. Furosemide (Lasix) 40 mg IVPUSH NOW ONE Stop: 09/18/18 13:01 Last Admin: 09/18/18 14:00 Dose: 40 mg Furosemide (Lasix) 40 mg PO DAILY [facility] Last Admin: 09/19/18 11:23 Dose: Not Given Furosemide (Lasix) 20 mg IVPUSH NOW ONE Stop: 09/18/18 22:37 Last Admin: 09/18/18 23:02 Dose: 20 mg Furosemide (Lasix) 40 mg IVPUSH NOW ONE Stop: 09/19/18 11:04 Last Admin: 09/19/18 11:36 Dose: 40 mg Piperacillin/Tazobactam/ (Dextrose 3.375 gm/ Premix) 50 mls @ 100 mls/hr IV Q6H [facility] Last Admin: 09/18/18 13:03 Dose: Not Given Sodium Chloride (Normal Saline) 1,000 mls @ 50 mls/hr IV ASDIRECTED [facility] Last Admin: 09/18/18 12:16 Dose: 50 mls/hr Piperacillin/Tazobactam/ (Dextrose 3.375 gm/ Premix) 50 mls @ 100 mls/hr IV Q6H [facility] Last Admin: 09/18/18 13:09 Dose: 100 mls/hr Lidocaine HCl (Xylocaine 2%) 0 mg IVPUSH ASDIRECTED PRN PRN Reason: Heart. Metoprolol Tartrate (Lopressor) 2.5 mg IVPUSH ONETIME ONE Stop: 09/18/18 13:01 Last Admin: 09/18/18 14:13 Dose: 2.5 mg Nitroglycerin (Nitrostat) 0.4 mg SL ASDIRECTED PRN PRN Reason: Heart. - Exam Quality Assessment: Supplemental Oxygen, DVT Prophylaxis General: Alert, Oriented, Cooperative, No Acute Distress HEENT: Other (Dry mucous membranes) Neck: Supple, No JVD Lungs: Rhonchi. No: Crackles Cardiovascular: Tachycardia GI/Abdominal Exam: Soft, Non-Tender. No: Distended Back Exam: No: CVA Tenderness (L), CVA Tenderness (R) Extremities: Pedal Edema (1+ lower extremities) Peripheral Pulses: 2+: Radial (L), Radial (R) Skin: Warm, Dry, Intact Wound/Incisions: No: Erythema Neurological: Normal Speech, Normal Tone, Other (Flexion contractures right wrist) Psy/Mental Status: Alert, Normal Affect. No: Labile Mood, Agitated - Problem List Review Problem List Initiated/Reviewed/Updated: Yes - My Orders Last 24 Hours: My Active Orders 09/19/18 10:34 Discontinue Telemetry Monitoring [Cardiac Monitoring Discontinue] [RC] Click to Edit 09/19/18 10:42 Incentive Spirometry [RT Incentive Spirometry] [RC] Q1HWA 09/19/18 10:45 EKG 12 Lead [EK] Routine 09/19/18 10:46 EKG Documentation Completion [RC] ASDIRECTED 09/19/18 11:08 Consult to Physical Therapy [PT Evaluation and Treatment] [CONS] Routine 09/19/18 Dinner Low Salt [Sodium Restricted Diet] [DIET] 09/21/18 09:00 Enoxaparin [Lovenox] 40 mg SUBCUT DAILY - Plan Plan:: Brief history summary 83 y/o female resident of a resident of [facility] seasons [facility] was admitted yesterday by Sreekanth Josue PA-C with symptoms suggested of pneumonia as the patient did have documented temperature 100.8, tachycardia, wheezing or coughing and hypoxia. Update on rounds/nursing Patient sitting in chair conversing, no confusion, fully alert today, no overnight calls/nursing concerns. Primary hospital problems Urinary tract infection, comorbid conditions with MS, neurogenic bladder HFpEF, minimally preserved EF 45%, acute on chronic, diastolic, elevated BNP, Pleural effusions, Small, HF attributable. Chronic medical problems multiple sclerosis neurogenic bladder QTc prolongation, improved Dementia-related psychosis Obesity MRSA Disposition/overall plan --Continue with inpatient status --Decreased Lasix --Wean oxygen down, avoid hyperoxemia --Encourage oral intake --Discontinue indwelling Tucker catheter --Adjust Lovenox to prophylaxis dose --Blood culture surveillance, urine culture pending, --continue Rocephin --Discontinue vancomycin --pulmonary toileting, may benefit from UTI prophylaxis upon discharge in light of her comorbid conditions with MS and neurogenic bladder. --PT to demonstrate to patient and staff limb exercises. --Continue carvedilol as likely not contributable to acute heart failure --Labs in am. --DVT prophylaxis, reduce to prophylaxis dose, SCDs Discharge planning data Anticipate discharge 1-2 days Aspirin DC'd UTI prophylaxis PT for limb exercises
[2018-09-20] MEDS ORDERED: Furosemide 40 MG/4 ML VIAL IVPUSH ONE (10:20)
[2018-09-20] MEDS: cefTRIAXone 1 GM Vial IVPUSH SCH (17:59)
[2018-09-21] MEDS: Albuterol/Ipratropium 3.0-0.5 MG/3 ML Neb Soln NEB SCH ×5 (05:26→23:14)
[2018-09-21] MEDS ORDERED: Furosemide 40 MG/4 ML VIAL IVPUSH ONE ×3 (09:56→19:00)
--- NOTE | 2018-09-21 10:19 | PCM.PN ---
- General Info Date of Service: 09/21/18 Functional Status: Reports: Pain Controlled, Tolerating Diet, New Symptoms ( worsening cough more raddle in anter chest today, echocardiogram), Incentive Spirometry - Review of Systems General: Reports: Weakness. Denies: Night Sweats HEENT: Reports: No Symptoms Pulmonary: Reports: Shortness of Breath, Cough Cardiovascular: Denies: Edema Gastrointestinal: Reports: No Symptoms Genitourinary: Reports: No Symptoms Musculoskeletal: Reports: No Symptoms Skin: Reports: Pallor Neurological: Reports: Paresthesia, Pre-Existing Deficit Psychiatric: Reports: No Symptoms - Patient Data Vitals - Most Recent: Last Vital Signs Temp 98.1 F 09/21/18 07:00 Pulse 130 H 09/21/18 07:00 Resp 40 H 09/21/18 07:00 BP 137/79 09/21/18 07:00 Pulse Ox 86 L 09/21/18 08:32 Weight - Most Recent: 213 lb 9.6 oz I&O - Last 24 Hours: Intake & Output 09/20/18 09/21/18 09/21/18 22:59 06:59 14:59 Intake Total 400 0 Balance 400 0 Lab Results Last 24 Hours: Laboratory Results - last 24 hr 09/21/18 Range/Units 07:34 WBC 12.85 H (5.00-10.00) 10^3/uL RBC 3.94 (3.80-5.50) 10^6/uL Hgb 12.9 (12.0-16.0) g/dL Hct 39.6 (37.0-47.0) % MCV 100.5 H (82.0-92.0) fL MCH 32.7 H (27.0-31.0) pg MCHC 32.6 (32.0-36.0) g/dL RDW 13.7 (11.5-14.5) % Plt Count 391 (150-400) 10^3/uL MPV 9.1 (7.4-10.4) fL Immature Gran % (Auto) 0.4 (0.0-5.0) % Neut % (Auto) 68.1 (50.0-70.0) % Lymph % (Auto) 20.7 (20.0-40.0) % [place] % (Auto) 10.7 H (2.0-8.0) % Eos % (Auto) 0.0 L (1.0-3.0) % Baso % (Auto) 0.1 (0.0-1.0) % Immature Gran # (Auto) 0.05 (0.00-0.50) 10^3/uL Neut # (Auto) 8.75 H (2.50-7.00) 10^3/uL Lymph # (Auto) 2.66 (1.00-4.00) 10^3/uL [place] # (Auto) 1.38 H (0.10-0.80) 10^3/uL Eos # (Auto) 0.00 L (0.10-0.30) 10^3/uL Baso # (Auto) 0.01 (0.00-0.10) 10^3/uL Jose Results Last 24 Hours: Microbiology 09/18/18 12:12 Aerobic Blood Culture - Preliminary Blood - Venous NO GROWTH AFTER 2 DAYS Anaerobic Blood Culture - Preliminary NO GROWTH AFTER 2 DAYS 09/18/18 12:05 Aerobic Blood Culture - Preliminary Blood NO GROWTH AFTER 2 DAYS Anaerobic Blood Culture - Preliminary NO GROWTH AFTER 2 DAYS Med Orders - Current: Current Medications Acetaminophen (Tylenol Arthritis Pain) 650 mg PO TID [facility] Last Admin: 09/20/18 20:47 Dose: 650 mg Albuterol/Ipratropium (Duoneb 3.0-0.5 Mg/3 Ml) 3 ml NEB Q6HRRT [facility] Last Admin: 09/21/18 05:26 Dose: 3 ml Carvedilol (Coreg) 6.25 mg PO BIDMEALS [facility] Last Admin: 09/20/18 17:58 Dose: 6.25 mg Ceftriaxone Sodium (Rocephin) 1 gm IVPUSH Q24H [facility] Last Admin: 09/20/18 17:59 Dose: 1 gm Cranberry (Azo Cranberry) 2 each PO DAILY [facility] Last Admin: 09/20/18 08:37 Dose: 2 each Docusate Sodium (Colace) 100 mg PO BID [facility] Last Admin: 09/20/18 20:47 Dose: 100 mg Enoxaparin Sodium (Lovenox) 40 mg SUBCUT DAILY [facility] Furosemide (Lasix) 40 mg IVPUSH NOW ONE Stop: 09/21/18 09:57 Furosemide (Lasix) 20 mg IVPUSH NOW ONE Stop: 09/21/18 16:01 Guaifenesin (Mucinex) 600 mg PO BID PRN PRN Reason: Cough Ibuprofen (Motrin) 400 mg PO Q6H PRN PRN Reason: Fever Lactobacillus Acidophilus/Rhamnosus (Multi-[place] Plus) 1 cap PO BID [facility] Last Admin: 09/20/18 20:47 Dose: 1 cap Loratadine (Claritin) 10 mg PO DAILY [facility] Last Admin: 09/20/18 08:37 Dose: 10 mg Magnesium Hydroxide (Milk Of Magnesia) 30 ml PO DAILY PRN PRN Reason: Constipation Multivitamins/Minerals (Centrum) 1 tab PO BID [facility] Last Admin: 09/20/18 20:47 Dose: 1 tab Nystatin (Nystop) 0 gm TOP BID [facility] Last Admin: 09/20/18 20:49 Dose: 1 applic Nystatin (Nystop) 0 gm TOP TID PRN PRN Reason: skin irritation Polyethylene Glycol (Miralax) 17 gm PO Q2D [facility] Last Admin: 09/19/18 08:56 Dose: 17 gm Potassium Chloride (Klor-Con M20) 20 meq PO DAILY [facility] Last Admin: 09/20/18 08:37 Dose: 20 meq Sodium Chloride (Saline Flush) 10 ml FLUSH Q8HR PRN PRN Reason: keep vein open Last Admin: 09/19/18 11:35 Dose: 10 ml Discontinued Medications Acetaminophen (Tylenol) 650 mg RECTAL NOW ONE Stop: 09/18/18 18:34 Last Admin: 09/18/18 19:07 Dose: 650 mg Albuterol/Ipratropium (Duoneb 3.0-0.5 Mg/3 Ml) 3 ml NEB Q6HRRT [facility] Aspirin (Halfprin) 81 mg PO DAILY [facility] Last Admin: 09/19/18 08:43 Dose: 81 mg Atropine Sulfate (Atropine 0.1 Mg/Ml) 0 mg IVPUSH ASDIRECTED PRN PRN Reason: Heart. Ceftriaxone Sodium (Rocephin) 1 gm IVPUSH Q24H [facility] Last Admin: 09/18/18 16:16 Dose: Not Given Diphenhydramine HCl (Benadryl) 25 mg IVPUSH Q6H [facility] Last Admin: 09/18/18 13:02 Dose: Not Given Diphenhydramine HCl (Benadryl) 25 mg IVPUSH Q6H [facility] Last Admin: 09/18/18 12:30 Dose: 25 mg Enoxaparin Sodium (Lovenox) 100 mg SUBCUT BID [facility] Last Admin: 09/20/18 08:38 Dose: 100 mg Epinephrine HCl (Epinephrine 1:10,000) 1 mg IVPUSH ASDIRECTED PRN PRN Reason: Heart. Furosemide (Lasix) 40 mg IVPUSH NOW ONE Stop: 09/18/18 13:01 Last Admin: 09/18/18 14:00 Dose: 40 mg Furosemide (Lasix) 40 mg PO DAILY [facility] Last Admin: 09/19/18 11:23 Dose: Not Given Furosemide (Lasix) 20 mg IVPUSH NOW ONE Stop: 09/18/18 22:37 Last Admin: 09/18/18 23:02 Dose: 20 mg Furosemide (Lasix) 40 mg IVPUSH NOW ONE Stop: 09/19/18 11:04 Last Admin: 09/19/18 11:36 Dose: 40 mg Furosemide (Lasix) 20 mg IVPUSH NOW ONE Stop: 09/20/18 10:21 Last Admin: 09/20/18 11:07 Dose: 20 mg Piperacillin/Tazobactam/ (Dextrose 3.375 gm/ Premix) 50 mls @ 100 mls/hr IV Q6H [facility] Last Admin: 09/18/18 13:03 Dose: Not Given Sodium Chloride (Normal Saline) 1,000 mls @ 50 mls/hr IV ASDIRECTED [facility] Last Admin: 09/18/18 12:16 Dose: 50 mls/hr Piperacillin/Tazobactam/ (Dextrose 3.375 gm/ Premix) 50 mls @ 100 mls/hr IV Q6H [facility] Last Admin: 09/18/18 13:09 Dose: 100 mls/hr Vancomycin HCl 1.25 gm/ Sodium (Chloride) 250 mls @ 120 mls/hr IV Q12H [facility] Last Admin: 09/20/18 01:41 Dose: 120 mls/hr Lidocaine HCl (Xylocaine 2%) 0 mg IVPUSH ASDIRECTED PRN PRN Reason: Heart. Metoprolol Tartrate (Lopressor) 2.5 mg IVPUSH ONETIME ONE Stop: 09/18/18 13:01 Last Admin: 09/18/18 14:13 Dose: 2.5 mg Metoprolol Tartrate (Lopressor) 2.5 mg IVPUSH Q6H PRN PRN Reason: Tachycardia Nitroglycerin (Nitrostat) 0.4 mg SL ASDIRECTED PRN PRN Reason: Heart. Vancomycin HCl (Pharmacy To Dose - Vancomycin) 1 dose .XX ASDIRECTED [facility] - Exam Quality Assessment: Supplemental Oxygen, DVT Prophylaxis General: Alert, Oriented, Mild Distress Neck: No JVD Lungs: Crackles, Rhonchi Cardiovascular: Tachycardia GI/Abdominal Exam: Soft, Non-Tender Back Exam: No: CVA Tenderness (R) Extremities: No Pedal Edema Skin: Warm, Dry, Intact Neurological: Normal Speech, Sensation Intact Psy/Mental Status: Alert, Normal Affect, Normal Mood - Problem List Review Problem List Initiated/Reviewed/Updated: Yes - My Orders Last 24 Hours: My Active Orders 09/21/18 09:00 Enoxaparin [Lovenox] 40 mg SUBCUT DAILY 09/21/18 09:56 Furosemide [Lasix] 40 mg IVPUSH NOW ONE 09/21/18 09:57 CXR [Chest 1V Frontal] [CR] Routine 09/21/18 16:00 Furosemide [Lasix] 20 mg IVPUSH NOW ONE - Plan Plan:: Brief history summary 83 y/o female resident of a resident of [facility] seasons [facility] was admitted yesterday by Sreekanth Josue PA-C with symptoms suggested of pneumonia as the patient did have documented temperature 100.8, tachycardia, wheezing or coughing and hypoxia. Update on rounds/nursing Patient sitting in chair, visiting family, nurses report tachycardia today with rhonchus and increasing rales. Intake 1400 output 1100 Primary hospital problems Urinary tract infection, comorbid conditions with MS, neurogenic bladder HFpEF, minimally preserved EF 45%, acute on chronic, diastolic, elevated BNP, Pleural effusions, Small, HF attributable. ICS Chronic medical problems multiple sclerosis neurogenic bladder QTc prolongation, improved Dementia-related psychosis, stable Obesity MRSA Disposition/overall plan --Continue with inpatient status --Lasix 40 mg now, 20 mg 1600 --Repeat chest x-ray --Blood culture surveillance, --continue Rocephin --pulmonary toileting, may benefit from UTI prophylaxis upon discharge in light of her comorbid conditions with MS and neurogenic bladder. --Continue carvedilol as likely not contributable to acute heart failure, goog MAP --Labs in am. --DVT prophylaxis, reduced to prophylaxis dose, SCDs Discharge planning data Anticipate discharge 1-2 days Continue with restorative PT with limb exercises at group home Aspirin DC'd UTI prophylaxis
[2018-09-21] MEDS: Enoxaparin 40 MG/0.4 ML Syringe SUBCUT SCH (10:20)
[2018-09-21] MEDS: Docusate Sodium 100 MG Cap PO SCH ×2 (10:20→20:32)
[2018-09-21] MEDS: Multivitamins with Minerals/Iron/Folic Acid/Lycopene Tab PO SCH ×2 (10:20→20:31)
[2018-09-21] MEDS: Cranberry Ext/C/L. Sporogenes Tab PO SCH (10:20)
[2018-09-21] MEDS: Carvedilol 6.25 MG Tab PO SCH ×2 (10:21→18:37)
[2018-09-21] MEDS: Acetaminophen 650 MG Tab.ER PO SCH ×3 (10:21→20:31)
[2018-09-21] MEDS: B.Bifidum/B.Longum/L.Acidophilus/L.Rhamnosus (Probiotic) Cap PO SCH ×2 (10:21→20:32)
[2018-09-21] MEDS: Loratadine 10 MG Tab PO SCH (10:21)
[2018-09-21] MEDS: Potassium Chloride 20 MEQ Tab.ER PO SCH (10:21)
[2018-09-21] MEDS: Nystatin Topical Powder 15 GM Bottle TOP SCH ×2 (10:25→20:32)
--- NOTE | 2018-09-21 11:11 | CR ---
[id number] RAD/RAD Chest PA or AP 1V EXAM: FRONTAL CHEST INDICATION: Increasing rales. COMPARISON: September 18, 2017. DISCUSSION: Soft tissue attenuation limits this assessment. A new small left pleural effusion is suggested. There is stable cardiomegaly with mild central vascular congestion. IMPRESSION: 1. Mild congestive heart failure with stable mild interstitial edema and new or increased small left effusion. Mike Rios MD 09/21/18 1109 Thank you for allowing us to participate in the care of your patient.
[2018-09-21] MEDS: Polyethylene Glycol 3350 Powder 17 GM Packet PO SCH (16:11)
[2018-09-21] MEDS: cefTRIAXone 1 GM Vial IVPUSH SCH (18:38)
[2018-09-22] MEDS: Albuterol/Ipratropium 3.0-0.5 MG/3 ML Neb Soln NEB SCH ×4 (05:35→23:38)
[2018-09-22 07:29] LABS: ANION GAP 8.6 mmol/L (5-15); CHLORIDE,CL 99 mmol/L (98-115); SODIUM,NA 138 mmol/L (136-145)
[2018-09-22] MEDS: Enoxaparin 40 MG/0.4 ML Syringe SUBCUT SCH (08:05)
[2018-09-22] MEDS: Loratadine 10 MG Tab PO SCH (08:06)
[2018-09-22] MEDS: Acetaminophen 650 MG Tab.ER PO SCH ×3 (08:06→20:12)
[2018-09-22] MEDS: Cranberry Ext/C/L. Sporogenes Tab PO SCH (08:06)
[2018-09-22] MEDS: B.Bifidum/B.Longum/L.Acidophilus/L.Rhamnosus (Probiotic) Cap PO SCH ×2 (08:06→20:12)
[2018-09-22] MEDS: Potassium Chloride 20 MEQ Tab.ER PO SCH (08:07)
[2018-09-22] MEDS: Multivitamins with Minerals/Iron/Folic Acid/Lycopene Tab PO SCH ×2 (08:07→20:12)
[2018-09-22] MEDS: Docusate Sodium 100 MG Cap PO SCH ×2 (08:07→20:12)
[2018-09-22] MEDS: Nystatin Topical Powder 15 GM Bottle TOP SCH ×2 (08:08→20:15)
[2018-09-22] MEDS: Carvedilol 6.25 MG Tab PO SCH ×2 (08:09→18:20)
[2018-09-22] MEDS ORDERED: Furosemide 40 MG/4 ML VIAL IVPUSH ONE ×2 (11:03→16:00)
--- NOTE | 2018-09-22 11:11 | PCM.PN ---
- General Info Date of Service: 09/22/18 Functional Status: Reports: Pain Controlled, Other (Seems more sedated today) - Review of Systems General: Reports: Fatigue, Malaise. Denies: Fever HEENT: Reports: No Symptoms Pulmonary: Reports: Cough, Other (Javier anterior chest). Denies: Shortness of Breath Cardiovascular: Denies: Chest Pain, Palpitations, Edema Gastrointestinal: Reports: No Symptoms Genitourinary: Reports: No Symptoms Musculoskeletal: Reports: No Symptoms Skin: Reports: Pallor Neurological: Reports: Other (Excessive drowsy this morning). Denies: Confusion Psychiatric: Denies: Agitation - Patient Data Vitals - Most Recent: Last Vital Signs Temp 98.2 F 09/22/18 06:55 Pulse 104 H 09/22/18 08:09 Resp 28 H 09/22/18 06:55 BP 124/79 09/22/18 08:09 Pulse Ox 92 L 09/22/18 09:00 Weight - Most Recent: 210 lb 4.8 oz I&O - Last 24 Hours: Intake & Output 09/21/18 09/22/18 09/22/18 22:59 06:59 14:59 Intake Total 300 0 Output Total 0 Balance 300 0 Lab Results Last 24 Hours: Laboratory Results - last 24 hr 09/22/18 09/22/18 Range/Units 07:00 07:00 WBC 13.11 H (5.00-10.00) 10^3/uL RBC 3.81 (3.80-5.50) 10^6/uL Hgb 12.4 (12.0-16.0) g/dL Hct 38.0 (37.0-47.0) % MCV 99.7 H (82.0-92.0) fL MCH 32.5 H (27.0-31.0) pg MCHC 32.6 (32.0-36.0) g/dL RDW 13.5 (11.5-14.5) % Plt Count 384 (150-400) 10^3/uL MPV 9.0 (7.4-10.4) fL Immature Gran % (Auto) 0.5 (0.0-5.0) % Neut % (Auto) 59.8 (50.0-70.0) % Lymph % (Auto) 25.8 (20.0-40.0) % [place] % (Auto) 13.8 H (2.0-8.0) % Eos % (Auto) 0.0 L (1.0-3.0) % Baso % (Auto) 0.1 (0.0-1.0) % Immature Gran # (Auto) 0.06 (0.00-0.50) 10^3/uL Neut # (Auto) 7.85 H (2.50-7.00) 10^3/uL Lymph # (Auto) 3.38 (1.00-4.00) 10^3/uL [place] # (Auto) 1.81 H (0.10-0.80) 10^3/uL Eos # (Auto) 0.00 L (0.10-0.30) 10^3/uL Baso # (Auto) 0.01 (0.00-0.10) 10^3/uL Sodium 138 (136-145) mmol/L Potassium 3.6 (3.3-5.3) mmol/L Chloride 99 (98-115) mmol/L Carbon Dioxide 34.0 H (21.0-32.0) mmol/L Anion Gap 8.6 (5-15) mmol/L BUN 10 (6-25) mg/dL Creatinine 0.53 (0.51-1.17) mg/dL Est Cr Clr Drug Dosing 73.64 mL/min Estimated GFR (MDRD) > 60 mL/min Glucose 116 H (75 - 99) mg/dL Calcium 9.4 (8.7-10.3) mg/dL Jose Results Last 24 Hours: Microbiology 09/18/18 12:12 Aerobic Blood Culture - Preliminary Blood - Venous NO GROWTH AFTER 3 DAYS Anaerobic Blood Culture - Preliminary NO GROWTH AFTER 3 DAYS 09/18/18 12:05 Aerobic Blood Culture - Preliminary Blood NO GROWTH AFTER 3 DAYS Anaerobic Blood Culture - Preliminary NO GROWTH AFTER 3 DAYS Med Orders - Current: Current Medications Acetaminophen (Tylenol Arthritis Pain) 650 mg PO TID [facility] Last Admin: 09/22/18 08:06 Dose: 650 mg Albuterol/Ipratropium (Duoneb 3.0-0.5 Mg/3 Ml) 3 ml NEB Q6HRRT [facility] Last Admin: 09/22/18 05:35 Dose: 3 ml Carvedilol (Coreg) 6.25 mg PO BIDMEALS [facility] Last Admin: 09/22/18 08:09 Dose: 6.25 mg Ceftriaxone Sodium (Rocephin) 1 gm IVPUSH Q24H [facility] Last Admin: 09/21/18 18:38 Dose: 1 gm Cranberry (Azo Cranberry) 2 each PO DAILY [facility] Last Admin: 09/22/18 08:06 Dose: 2 each Docusate Sodium (Colace) 100 mg PO BID [facility] Last Admin: 09/22/18 08:07 Dose: 100 mg Enoxaparin Sodium (Lovenox) 40 mg SUBCUT DAILY [facility] Last Admin: 09/22/18 08:05 Dose: 40 mg Guaifenesin (Mucinex) 600 mg PO BID PRN PRN Reason: Cough Ibuprofen (Motrin) 400 mg PO Q6H PRN PRN Reason: Fever Lactobacillus Acidophilus/Rhamnosus (Multi-Penelope Plus) 1 cap PO BID [facility] Last Admin: 09/22/18 08:06 Dose: 1 cap Loratadine (Claritin) 10 mg PO DAILY [facility] Last Admin: 09/22/18 08:06 Dose: 10 mg Magnesium Hydroxide (Milk Of Magnesia) 30 ml PO DAILY PRN PRN Reason: Constipation Multivitamins/Minerals (Centrum) 1 tab PO BID [facility] Last Admin: 09/22/18 08:07 Dose: 1 tab Nystatin (Nystop) 0 gm TOP BID [facility] Last Admin: 09/22/18 08:08 Dose: 1 applic Nystatin (Nystop) 0 gm TOP TID PRN PRN Reason: skin irritation Polyethylene Glycol (Miralax) 17 gm PO Q2D [facility] Last Admin: 09/21/18 16:11 Dose: Not Given Potassium Chloride (Klor-Con M20) 20 meq PO DAILY [facility] Last Admin: 09/22/18 08:07 Dose: 20 meq Sodium Chloride (Saline Flush) 10 ml FLUSH Q8HR PRN PRN Reason: keep vein open Last Admin: 09/19/18 11:35 Dose: 10 ml Discontinued Medications Acetaminophen (Tylenol) 650 mg RECTAL NOW ONE Stop: 09/18/18 18:34 Last Admin: 09/18/18 19:07 Dose: 650 mg Albuterol/Ipratropium (Duoneb 3.0-0.5 Mg/3 Ml) 3 ml NEB Q6HRRT [facility] Aspirin (Halfprin) 81 mg PO DAILY [facility] Last Admin: 09/19/18 08:43 Dose: 81 mg Atropine Sulfate (Atropine 0.1 Mg/Ml) 0 mg IVPUSH ASDIRECTED PRN PRN Reason: Heart. Ceftriaxone Sodium (Rocephin) 1 gm IVPUSH Q24H [facility] Last Admin: 09/18/18 16:16 Dose: Not Given Diphenhydramine HCl (Benadryl) 25 mg IVPUSH Q6H [facility] Last Admin: 09/18/18 13:02 Dose: Not Given Diphenhydramine HCl (Benadryl) 25 mg IVPUSH Q6H [facility] Last Admin: 09/18/18 12:30 Dose: 25 mg Enoxaparin Sodium (Lovenox) 100 mg SUBCUT BID [facility] Last Admin: 09/20/18 08:38 Dose: 100 mg Epinephrine HCl (Epinephrine 1:10,000) 1 mg IVPUSH ASDIRECTED PRN PRN Reason: Heart. Furosemide (Lasix) 40 mg IVPUSH NOW ONE Stop: 09/18/18 13:01 Last Admin: 09/18/18 14:00 Dose: 40 mg Furosemide (Lasix) 40 mg PO DAILY [facility] Last Admin: 09/19/18 11:23 Dose: Not Given Furosemide (Lasix) 20 mg IVPUSH NOW ONE Stop: 09/18/18 22:37 Last Admin: 09/18/18 23:02 Dose: 20 mg Furosemide (Lasix) 40 mg IVPUSH NOW ONE Stop: 09/19/18 11:04 Last Admin: 09/19/18 11:36 Dose: 40 mg Furosemide (Lasix) 20 mg IVPUSH NOW ONE Stop: 09/20/18 10:21 Last Admin: 09/20/18 11:07 Dose: 20 mg Furosemide (Lasix) 40 mg IVPUSH NOW ONE Stop: 09/21/18 09:57 Last Admin: 09/21/18 10:20 Dose: 40 mg Furosemide (Lasix) 20 mg IVPUSH NOW ONE Stop: 09/21/18 16:01 Last Admin: 09/21/18 16:18 Dose: 20 mg Furosemide (Lasix) 20 mg IVPUSH NOW ONE Stop: 09/21/18 19:01 Last Admin: 09/21/18 18:39 Dose: 20 mg Piperacillin/Tazobactam/ (Dextrose 3.375 gm/ Premix) 50 mls @ 100 mls/hr IV Q6H [facility] Last Admin: 09/18/18 13:03 Dose: Not Given Sodium Chloride (Normal Saline) 1,000 mls @ 50 mls/hr IV ASDIRECTED [facility] Last Admin: 09/18/18 12:16 Dose: 50 mls/hr Piperacillin/Tazobactam/ (Dextrose 3.375 gm/ Premix) 50 mls @ 100 mls/hr IV Q6H [facility] Last Admin: 09/18/18 13:09 Dose: 100 mls/hr Vancomycin HCl 1.25 gm/ Sodium (Chloride) 250 mls @ 120 mls/hr IV Q12H [facility] Last Admin: 09/20/18 01:41 Dose: 120 mls/hr Lidocaine HCl (Xylocaine 2%) 0 mg IVPUSH ASDIRECTED PRN PRN Reason: Heart. Metoprolol Tartrate (Lopressor) 2.5 mg IVPUSH ONETIME ONE Stop: 09/18/18 13:01 Last Admin: 09/18/18 14:13 Dose: 2.5 mg Metoprolol Tartrate (Lopressor) 2.5 mg IVPUSH Q6H PRN PRN Reason: Tachycardia Nitroglycerin (Nitrostat) 0.4 mg SL ASDIRECTED PRN PRN Reason: Heart. Vancomycin HCl (Pharmacy To Dose - Vancomycin) 1 dose .XX ASDIRECTED [facility] - Exam Quality Assessment: Supplemental Oxygen, DVT Prophylaxis General: Sedated Neck: Supple Lungs: Rhonchi Cardiovascular: Tachycardia (Female) Exam: Deferred Back Exam: No: CVA Tenderness (R) Extremities: No Pedal Edema Peripheral Pulses: 2+: Radial (L), Radial (R) Skin: Warm, Dry, Intact Psy/Mental Status: Other (Sleepy and drowsy). No: Anxious - Problem List Review Problem List Initiated/Reviewed/Updated: Yes - Plan Plan:: Brief history summary 83 y/o female resident of a resident of [facility] was admitted yesterday by Sreekanth Josue PA-C with symptoms suggested of pneumonia as the patient did have documented temperature 100.8, tachycardia, wheezing or coughing and hypoxia. Update on rounds/nursing Patient more drowsy today however looks comfortable, anterior rhonchi noted, seems less short of breath than yesterday. No JVD. Weight is down ~3 pounds. Intake 1400 output 1100, chest x-ray slightly larger left-sided pleural effusion , Primary hospital problems Non-STEMI, NWQMI, RONNIE risk 2/8, low, conservative medication management, non invasive mgt Urinary tract infection, comorbid conditions with MS, neurogenic bladder HFpEF, minimally preserved EF 45%, acute on chronic, diastolic, elevated BNP, Pleural effusions, Small, HF attributable. ICS Chronic medical problems multiple sclerosis neurogenic bladder QTc prolongation, improved Dementia-related psychosis, stable Obesity MRSA Disposition/overall plan --Continue with inpatient status --Lasix 40 mg now, 40 mg 1600 --40 meq K+ today --Start DAPT, increase LMWH --Blood culture surveillance, --continue Rocephin --pulmonary toileting, may benefit from UTI prophylaxis upon discharge in light of her comorbid conditions with MS and neurogenic bladder. --Continue carvedilol as likely not contributable to acute heart failure, good MAP --Labs in am. --DVT prophylaxis, LMWH, SCDs Discharge planning data Anticipate discharge 1-2 days Continue with restorative PT with limb exercises at custodial Aspirin DC'd UTI prophylaxis
[2018-09-22] MEDS ORDERED: Aspirin 81 MG Tab.Chew PO ONE (14:17)
[2018-09-22] MEDS ORDERED: Clopidogrel 75 MG Tab PO ONE (14:19)
[2018-09-22] MEDS ORDERED: Potassium Chloride 10 MEQ Tab.ER PO ONE (17:00)
[2018-09-22] MEDS: cefTRIAXone 1 GM Vial IVPUSH SCH (18:20)
[2018-09-22] MEDS: Enoxaparin 100 MG/1 ML Syringe SUBCUT SCH (20:13)
[2018-09-23] MEDS: Albuterol/Ipratropium 3.0-0.5 MG/3 ML Neb Soln NEB SCH ×4 (04:40→23:27)
[2018-09-23] MEDS: Carvedilol 6.25 MG Tab PO SCH ×2 (08:31→18:44)
[2018-09-23] MEDS: Loratadine 10 MG Tab PO SCH (08:32)
[2018-09-23] MEDS: Multivitamins with Minerals/Iron/Folic Acid/Lycopene Tab PO SCH ×2 (08:32→20:17)
[2018-09-23] MEDS: Enoxaparin 100 MG/1 ML Syringe SUBCUT SCH ×2 (08:32→20:22)
[2018-09-23] MEDS: B.Bifidum/B.Longum/L.Acidophilus/L.Rhamnosus (Probiotic) Cap PO SCH ×2 (08:32→20:17)
[2018-09-23] MEDS: Acetaminophen 650 MG Tab.ER PO SCH ×3 (08:32→20:17)
[2018-09-23] MEDS: Docusate Sodium 100 MG Cap PO SCH ×2 (08:32→20:17)
[2018-09-23] MEDS: Potassium Chloride 20 MEQ Tab.ER PO SCH (08:32)
[2018-09-23] MEDS: Cranberry Ext/C/L. Sporogenes Tab PO SCH (08:35)
[2018-09-23] MEDS ORDERED: Furosemide 40 MG/4 ML VIAL IVPUSH ONE ×2 (09:59→16:00)
[2018-09-23] MEDS: Polyethylene Glycol 3350 Powder 17 GM Packet PO SCH (10:12)
--- NOTE | 2018-09-23 10:12 | PCM.PN ---
- General Info Date of Service: 09/23/18 Functional Status: Reports: Urinating, New Symptoms (Feeling much better, alert , diuresing well, lost another 5 pounds from yesterday very near her dry weight of 200 205 pounds), Incentive Spirometry. Denies: Ambulating - Review of Systems General: Reports: Weakness. Denies: Fever HEENT: Reports: No Symptoms Pulmonary: Reports: Cough (Much improved and cough). Denies: Shortness of Breath, Sputum Cardiovascular: Denies: Chest Pain, PND, Edema Gastrointestinal: Reports: No Symptoms Genitourinary: Reports: No Symptoms Musculoskeletal: Reports: No Symptoms Skin: Reports: Pallor Neurological: Reports: Difficulty Walking (Wheelchair bound, MS). Denies: Confusion, Dizziness Psychiatric: Denies: Confusion, Anxiety, Hallucinations - Patient Data Vitals - Most Recent: Last Vital Signs Temp 98.4 F 09/23/18 07:00 Pulse 106 H 09/23/18 08:31 Resp 24 H 09/23/18 07:00 BP 128/64 09/23/18 08:31 Pulse Ox 93 L 09/23/18 07:00 Weight - Most Recent: 205 lb 1.6 oz I&O - Last 24 Hours: Intake & Output 09/22/18 09/23/18 09/23/18 22:59 06:59 14:59 Intake Total 1400 0 Balance 1400 0 Lab Results Last 24 Hours: Laboratory Results - last 24 hr 09/22/18 Range/Units 07:00 Troponin I 0.15 H* (0.00-0.070) ng/mL B-Natriuretic Peptide 610 H (0-100) pg/mL Jose Results Last 24 Hours: Microbiology 09/18/18 12:12 Aerobic Blood Culture - Preliminary Blood - Venous NO GROWTH AFTER 4 DAYS Anaerobic Blood Culture - Preliminary NO GROWTH AFTER 4 DAYS 09/18/18 12:05 Aerobic Blood Culture - Preliminary Blood NO GROWTH AFTER 4 DAYS Anaerobic Blood Culture - Preliminary NO GROWTH AFTER 4 DAYS Med Orders - Current: Current Medications Acetaminophen (Tylenol Arthritis Pain) 650 mg PO TID [facility] Last Admin: 09/23/18 08:32 Dose: 650 mg Albuterol/Ipratropium (Duoneb 3.0-0.5 Mg/3 Ml) 3 ml NEB Q6HRRT [facility] Last Admin: 09/23/18 04:40 Dose: 3 ml Aspirin (Aspirin) 81 mg PO BEDTIME [facility] Carvedilol (Coreg) 6.25 mg PO BIDMEALS [facility] Last Admin: 09/23/18 08:31 Dose: 6.25 mg Ceftriaxone Sodium (Rocephin) 1 gm IVPUSH Q24H [facility] Last Admin: 09/22/18 18:20 Dose: 1 gm Cranberry (Azo Cranberry) 2 each PO DAILY [facility] Last Admin: 09/23/18 08:35 Dose: 2 each Docusate Sodium (Colace) 100 mg PO BID [facility] Last Admin: 09/23/18 08:32 Dose: 100 mg Enoxaparin Sodium (Lovenox) 90 mg SUBCUT BID [facility] Last Admin: 09/23/18 08:32 Dose: 90 mg Furosemide (Lasix) 40 mg IVPUSH NOW ONE Stop: 09/23/18 10:00 Furosemide (Lasix) 40 mg IVPUSH NOW ONE Stop: 09/23/18 16:01 Guaifenesin (Mucinex) 600 mg PO BID PRN PRN Reason: Cough Ibuprofen (Motrin) 400 mg PO Q6H PRN PRN Reason: Fever Lactobacillus Acidophilus/Rhamnosus (Multi-Penelope Plus) 1 cap PO BID [facility] Last Admin: 09/23/18 08:32 Dose: 1 cap Loratadine (Claritin) 10 mg PO DAILY [facility] Last Admin: 09/23/18 08:32 Dose: 10 mg Magnesium Hydroxide (Milk Of Magnesia) 30 ml PO DAILY PRN PRN Reason: Constipation Multivitamins/Minerals (Centrum) 1 tab PO BID [facility] Last Admin: 09/23/18 08:32 Dose: 1 tab Nystatin (Nystop) 0 gm TOP BID [facility] Last Admin: 09/22/18 20:15 Dose: 1 applic Nystatin (Nystop) 0 gm TOP TID PRN PRN Reason: skin irritation Last Admin: 09/23/18 05:09 Dose: 1 applic Polyethylene Glycol (Miralax) 17 gm PO Q2D [facility] Last Admin: 09/21/18 16:11 Dose: Not Given Potassium Chloride (Klor-Con M20) 20 meq PO DAILY [facility] Last Admin: 09/23/18 08:32 Dose: 20 meq Sodium Chloride (Saline Flush) 10 ml FLUSH Q8HR PRN PRN Reason: keep vein open Last Admin: 09/19/18 11:35 Dose: 10 ml Discontinued Medications Acetaminophen (Tylenol) 650 mg RECTAL NOW ONE Stop: 09/18/18 18:34 Last Admin: 09/18/18 19:07 Dose: 650 mg Albuterol/Ipratropium (Duoneb 3.0-0.5 Mg/3 Ml) 3 ml NEB Q6HRRT [facility] Aspirin (Halfprin) 81 mg PO DAILY [facility] Last Admin: 09/19/18 08:43 Dose: 81 mg Aspirin (Aspirin) 162 mg PO ONETIME ONE Stop: 09/22/18 14:18 Last Admin: 09/22/18 15:54 Dose: 162 mg Atropine Sulfate (Atropine 0.1 Mg/Ml) 0 mg IVPUSH ASDIRECTED PRN PRN Reason: Heart. Ceftriaxone Sodium (Rocephin) 1 gm IVPUSH Q24H [facility] Last Admin: 09/18/18 16:16 Dose: Not Given Clopidogrel Bisulfate (Plavix) 300 mg PO ONETIME ONE Stop: 09/22/18 14:20 Last Admin: 09/22/18 15:54 Dose: 300 mg Diphenhydramine HCl (Benadryl) 25 mg IVPUSH Q6H [facility] Last Admin: 09/18/18 13:02 Dose: Not Given Diphenhydramine HCl (Benadryl) 25 mg IVPUSH Q6H [facility] Last Admin: 09/18/18 12:30 Dose: 25 mg Enoxaparin Sodium (Lovenox) 100 mg SUBCUT BID [facility] Last Admin: 09/20/18 08:38 Dose: 100 mg Enoxaparin Sodium (Lovenox) 40 mg SUBCUT DAILY [facility] Last Admin: 09/22/18 08:05 Dose: 40 mg Epinephrine HCl (Epinephrine 1:10,000) 1 mg IVPUSH ASDIRECTED PRN PRN Reason: Heart. Furosemide (Lasix) 40 mg IVPUSH NOW ONE Stop: 09/18/18 13:01 Last Admin: 09/18/18 14:00 Dose: 40 mg Furosemide (Lasix) 40 mg PO DAILY [facility] Last Admin: 09/19/18 11:23 Dose: Not Given Furosemide (Lasix) 20 mg IVPUSH NOW ONE Stop: 09/18/18 22:37 Last Admin: 09/18/18 23:02 Dose: 20 mg Furosemide (Lasix) 40 mg IVPUSH NOW ONE Stop: 09/19/18 11:04 Last Admin: 09/19/18 11:36 Dose: 40 mg Furosemide (Lasix) 20 mg IVPUSH NOW ONE Stop: 09/20/18 10:21 Last Admin: 09/20/18 11:07 Dose: 20 mg Furosemide (Lasix) 40 mg IVPUSH NOW ONE Stop: 09/21/18 09:57 Last Admin: 09/21/18 10:20 Dose: 40 mg Furosemide (Lasix) 20 mg IVPUSH NOW ONE Stop: 09/21/18 16:01 Last Admin: 09/21/18 16:18 Dose: 20 mg Furosemide (Lasix) 20 mg IVPUSH NOW ONE Stop: 09/21/18 19:01 Last Admin: 09/21/18 18:39 Dose: 20 mg Furosemide (Lasix) 40 mg IVPUSH NOW ONE Stop: 09/22/18 11:04 Last Admin: 09/22/18 11:37 Dose: 40 mg Furosemide (Lasix) 40 mg IVPUSH NOW ONE Stop: 09/22/18 16:01 Last Admin: 09/22/18 15:53 Dose: 40 mg Piperacillin/Tazobactam/ (Dextrose 3.375 gm/ Premix) 50 mls @ 100 mls/hr IV Q6H [facility] Last Admin: 09/18/18 13:03 Dose: Not Given Sodium Chloride (Normal Saline) 1,000 mls @ 50 mls/hr IV ASDIRECTED [facility] Last Admin: 09/18/18 12:16 Dose: 50 mls/hr Piperacillin/Tazobactam/ (Dextrose 3.375 gm/ Premix) 50 mls @ 100 mls/hr IV Q6H [facility] Last Admin: 09/18/18 13:09 Dose: 100 mls/hr Vancomycin HCl 1.25 gm/ Sodium (Chloride) 250 mls @ 120 mls/hr IV Q12H [facility] Last Admin: 09/20/18 01:41 Dose: 120 mls/hr Lidocaine HCl (Xylocaine 2%) 0 mg IVPUSH ASDIRECTED PRN PRN Reason: Heart. Metoprolol Tartrate (Lopressor) 2.5 mg IVPUSH ONETIME ONE Stop: 09/18/18 13:01 Last Admin: 09/18/18 14:13 Dose: 2.5 mg Metoprolol Tartrate (Lopressor) 2.5 mg IVPUSH Q6H PRN PRN Reason: Tachycardia Nitroglycerin (Nitrostat) 0.4 mg SL ASDIRECTED PRN PRN Reason: Heart. Potassium Chloride (Klor-Con 10) 20 meq PO ONETIME ONE Stop: 09/22/18 17:01 Last Admin: 09/22/18 16:14 Dose: 20 meq Vancomycin HCl (Pharmacy To Dose - Vancomycin) 1 dose .XX ASDIRECTED [facility] - Exam Quality Assessment: Supplemental Oxygen, DVT Prophylaxis General: Alert, Oriented, Cooperative Neck: Supple. No: JVD Lungs: Other (Slight rhonchus posterior, much improved) Cardiovascular: Tachycardia GI/Abdominal Exam: Soft (Female) Exam: Deferred Back Exam: No: CVA Tenderness (L), CVA Tenderness (R) Extremities: Marija's Sign. No: Pedal Edema Peripheral Pulses: 2+: Radial (L), Radial (R) Skin: Warm, Dry, Intact Neurological: Normal Tone, Sensation Intact Psy/Mental Status: Alert, Normal Affect, Normal Mood - Problem List Review Problem List Initiated/Reviewed/Updated: Yes - My Orders Last 24 Hours: My Active Orders 09/22/18 14:14 EKG Documentation Completion [RC] ASDIRECTED 09/22/18 21:00 Enoxaparin [Lovenox] 90 mg SUBCUT BID 09/23/18 07:25 TROPONIN I [CHEM] AM 09/23/18 09:59 Furosemide [Lasix] 40 mg IVPUSH NOW ONE 09/23/18 16:00 Furosemide [Lasix] 40 mg IVPUSH NOW ONE 09/23/18 21:00 Aspirin 81 mg PO BEDTIME - Plan Plan:: Brief history summary 83 y/o female resident of a resident of [facility] was admitted yesterday by Sreekanth Josue PA-C with symptoms suggested of pneumonia as the patient did have documented temperature 100.8, tachycardia, wheezing or coughing and hypoxia. Update on rounds Alert, talkative, back to baseline orientation status, Feeling much better, diuresing well, lost ~ 5 pounds from yesterday very near her dry weight of 200- 205 pounds. Non-STEMI noted yesterday Non Q-wave [place], started DAPT and increased LMWH, Primary hospital problems Non-STEMI, NWQMI, RONNIE risk 2/8, low, conservative medication management, non invasive mgt, DAPT started Urinary tract infection, comorbid conditions with MS, neurogenic bladder HFpEF, minimally preserved EF 45%, acute on chronic, diastolic, moving BNP, clinically responding, near her dry weight Pleural effusions, Small, HF attributable. ICS Chronic medical problems multiple sclerosis neurogenic bladder QTc prolongation, improved Dementia-related psychosis, stable Obesity MRSA Disposition/overall plan --Continue with inpatient status --Lasix 40 mg now, 40 mg 1600 --40 meq K+ today --Started DAPT, increased LMWH --Add PPI 2/2 ASA --Blood culture surveillance, --continue Rocephin --pulmonary toileting, may benefit from UTI prophylaxis upon discharge in light of her comorbid conditions with MS and neurogenic bladder. --Continue carvedilol as likely not contributable to acute heart failure, good MAP --Labs in am. --DVT prophylaxis, LMWH, SCDs Discharge planning data Anticipate discharge tomorrow Continue with [facility] PT [facility] Weekly Bumex, Aspirin, plavix PPI new med UTI prophylaxis, estradiol
[2018-09-23] MEDS: Nystatin Topical Powder 15 GM Bottle TOP SCH ×2 (10:13→20:20)
[2018-09-23] MEDS: Sodium Chloride 0.9% 10 ML Syringe FLUSH PRN (11:17)
[2018-09-23] MEDS: Omeprazole 20 MG Cap.CR PO SCH (11:17)
[2018-09-23] MEDS ORDERED: Potassium Bicarbonate 25 MEQ Tab.EFF PO ONE (17:00)
[2018-09-23] MEDS: cefTRIAXone 1 GM Vial IVPUSH SCH (18:44)
[2018-09-23] MEDS ORDERED: Aspirin 81 MG Tab.Chew PO SCH (21:00)
[2018-09-24] MEDS: Albuterol/Ipratropium 3.0-0.5 MG/3 ML Neb Soln NEB SCH ×2 (05:11→10:22)
[2018-09-24] MEDS: Omeprazole 20 MG Cap.CR PO SCH (07:36)
[2018-09-24] MEDS: Acetaminophen 650 MG Tab.ER PO SCH (08:14)
[2018-09-24] MEDS: Nystatin Topical Powder 15 GM Bottle TOP SCH (08:14)
[2018-09-24] MEDS: Potassium Chloride 20 MEQ Tab.ER PO SCH (08:14)
[2018-09-24] MEDS: Cranberry Ext/C/L. Sporogenes Tab PO SCH (08:14)
[2018-09-24] MEDS: Multivitamins with Minerals/Iron/Folic Acid/Lycopene Tab PO SCH (08:14)
[2018-09-24] MEDS: Docusate Sodium 100 MG Cap PO SCH (08:14)
[2018-09-24 08:15] VITALS: BP 110/65
[2018-09-24] MEDS: Loratadine 10 MG Tab PO SCH (08:15)
[2018-09-24] MEDS: B.Bifidum/B.Longum/L.Acidophilus/L.Rhamnosus (Probiotic) Cap PO SCH (08:15)
[2018-09-24] MEDS: Carvedilol 6.25 MG Tab PO SCH (08:15)
[2018-09-24] MEDS: Enoxaparin 100 MG/1 ML Syringe SUBCUT SCH (09:03)
--- NOTE | 2018-09-24 09:21 | PCM.DCSUM1 ---
Discharge Summary - Hospital Course Diagnosis: Stroke: No - Discharge Data Discharge Date: 09/24/18 Discharge Disposition: DC/Tfer to SNF 03 Condition: Good - Patient Summary/Data Consults: Consultations 09/19/18 11:08 Consult to Physical Therapy [PT Evaluation and Treatment] [CONS] Routine - Patient Instructions Diet: Low Sodium (2 g NA+) Activity: Cough & Deep Breathe Driving: Do Not Drive Showering/Bathing: May Shower Notify Provider of: Fever, Increased Pain, Nausea and/or Vomiting Other/Special Instructions: --Weight patient twice weekly, report weight gain more than 5 pounds. --Report any shortness of breath. --Continue with restorative PT with limb exercises at [facility]. --Limb exercises well help patient is pleural effusions. --NEW meds include ASA, omeprazole, Estrodiol and weekly Bumex - Discharge Plan *PRESCRIPTION DRUG MONITORING PROGRAM REVIEWED*: Not Applicable *COPY OF PRESCRIPTION DRUG MONITORING REPORT IN PATIENT JONY: Not Applicable Prescriptions/Med Rec: Bumetanide [Bumex] 1 mg PO TH #5 tab Estradiol [Estrace 0.01% Vaginal Crm] 1 applic VAG TUFR #1 tube Omeprazole 20 mg PO ACBREAKFAST #30 cap.cr Home Medications: Home Meds Loratadine [Claritin] 10 mg PO DAILY 11/21/13 [History] Multivits,Ca,Minerals/Iron/FA [Thera-M] 1 each PO BID 11/21/13 [History] Provex-Plus 1 cap PO DAILY 12/25/13 [History] Cellwise 1 tab PO BID 05/22/14 [History] Acetaminophen [Tylenol Arthritis Pain] 650 mg PO TID 10/26/14 [History] Docusate Sodium [Colace] 100 mg PO BID 10/26/14 [History] Aspirin [Adult Low Dose Aspirin EC] 81 mg PO DAILY 10/07/16 [History] Cranberry Conc/Ascorbic Acid [Cranberry Plus Vitamin C Sftgl] 1 cap PO DAILY [History] Furosemide 40 mg PO DAILY 10/07/16 [History] Miconazole Nitrate [Anti-Fungal] 1 applic TOP BID 10/07/16 [History] Polyethylene Glycol 3350 [MiraLAX] 17 gm PO Q2D 10/07/16 [History] Potassium Chloride 20 meq PO DAILY 10/07/16 [History] Albuterol Sulfate 2.5 mg IH BID 03/31/17 [History] L.acidoph,Paracasei, B.lactis [Probiotic] 1 each PO DAILY 03/31/17 [History] Miconazole Nitrate [Anti-Fungal] 1 applic TP TID PRN 04/03/17 [History] Carvedilol [Coreg] 6.25 mg PO BIDMEALS #60 tablet 04/04/17 [Rx] Albuterol/Ipratropium [DuoNeb 3.0-0.5 MG/3 ML] 3 ml INH Q4HR PRN 09/18/18 [ History] Magnesium Hydroxide [Milk of Magnesia] 30 ml PO DAILY PRN 09/18/18 [History] guaiFENesin [Mucinex] 600 mg PO BID PRN 09/18/18 [History] Bumetanide [Bumex] 1 mg PO TH #5 tab 09/24/18 [Rx] Estradiol [Estrace 0.01% Vaginal Crm] 1 applic VAG TUFR #1 tube 09/24/18 [Rx] Omeprazole 20 mg PO ACBREAKFAST #30 cap.cr 09/24/18 [Rx] - Discharge Summary/Plan Comment DC Time >30 min.: Yes Discharge Summary/Plan Comment: Final diagnosis Non-STEMI, NQWMI, Urinary tract infection, comorbid conditions with MS, neurogenic bladder HFpEF, minimally preserved EF 45%, acute on chronic, diastolic, dry weight of 205 pounds upon discharge Pleural effusions, Small Brief history 83 y/o female resident of a resident of [facility] was admitted by Sreekanth Josue PA-C with symptoms suggested of pneumonia as the patient did have documented temperature 100.8, tachycardia, wheezing or coughing and hypoxia. Hospital course Patient was quite ill and obtunded altered mental status upon admission, with elevated BNP and urinary tract infection. She was started on antibiotics for her UTI, she did have acute on chronic CHF requiring aggressive diuretic therapy which she eventually returned to her baseline dry weight of 205 pounds. Due to her worsening CHF she did have a non-Q wave non-STEMI likely type II UT with troponin peaking at 0.15, he had no chest pain,DAPT was started however Plavix will be discontinued upon discharge. Her white count of approximately 20, 000 upon admission it was trending down upon discharge, neutrophilia was 59% upon discharge electrolytes were monitored potassium was supplementation. Aggressive pulmonary toileting was given. She had no complications or side effects to medications or treatments. Family discussions at bedside daily and they agree with plan of care. Medication changes/adjustments upon discharge --Omeprazole, 20 mg by mouth daily, (due to ASA) newly added --Estradiol vaginal cream twice weekly for UTI prophylaxis (newly added) --Bumex 1 mg PO on Discharge instructions --Weight patient twice weekly, report weight gain more than 5 pounds --Report any shortness of breath --Continue with restorative PT with limb exercises at [facility] --Limb exercises well help patient is pleural effusions --NEW meds include omeprazole, Vag Estradiol 1g twice weekly and weekly Bumex - Patient Data Vitals - Most Recent: Last Vital Signs Temp 99.0 F 09/24/18 06:12 Pulse 97 09/24/18 08:15 Resp 20 09/24/18 06:12 BP 110/65 09/24/18 08:15 Pulse Ox 93 L 09/24/18 08:36 Weight - Most Recent: 205 lb 1.6 oz I&O - Last 24 hours: Intake & Output 09/23/18 09/24/18 09/24/18 22:59 06:59 14:59 Intake Total 30 0 Balance 30 0 Lab Results - Last 24 hrs: Laboratory Results - last 24 hr 09/23/18 Range/Units 07:25 Troponin I < 0.04 (0.00-0.070) ng/mL EDWARD Results - Last 24 hrs: Microbiology 09/18/18 12:12 Aerobic Blood Culture - Final Blood - Venous NO GROWTH AFTER 5 DAYS Anaerobic Blood Culture - Final NO GROWTH AFTER 5 DAYS 09/18/18 12:05 Aerobic Blood Culture - Final Blood NO GROWTH AFTER 5 DAYS Anaerobic Blood Culture - Final NO GROWTH AFTER 5 DAYS Med Orders - Current: Current Medications Acetaminophen (Tylenol Arthritis Pain) 650 mg PO TID [facility] Last Admin: 09/24/18 08:14 Dose: 650 mg Albuterol/Ipratropium (Duoneb 3.0-0.5 Mg/3 Ml) 3 ml NEB Q6HRRT [facility] Last Admin: 09/24/18 05:11 Dose: 3 ml Aspirin (Aspirin) 81 mg PO BEDTIME [facility] Last Admin: 07/01/19 20:23 Dose: Not Given Carvedilol (Coreg) 6.25 mg PO BIDMEALS [facility] Last Admin: 09/24/18 08:15 Dose: 6.25 mg Ceftriaxone Sodium (Rocephin) 1 gm IVPUSH Q24H [facility] Last Admin: 09/23/18 18:44 Dose: 1 gm Cranberry (Azo Cranberry) 2 each PO DAILY [facility] Last Admin: 09/24/18 08:14 Dose: 2 each Docusate Sodium (Colace) 100 mg PO BID [facility] Last Admin: 09/24/18 08:14 Dose: 100 mg Enoxaparin Sodium (Lovenox) 90 mg SUBCUT BID [facility] Last Admin: 09/24/18 09:03 Dose: Not Given Guaifenesin (Mucinex) 600 mg PO BID PRN PRN Reason: Cough Ibuprofen (Motrin) 400 mg PO Q6H PRN PRN Reason: Fever Lactobacillus Acidophilus/Rhamnosus (Multi-Penelope Plus) 1 cap PO BID [facility] Last Admin: 09/24/18 08:15 Dose: 1 cap Loratadine (Claritin) 10 mg PO DAILY [facility] Last Admin: 09/24/18 08:15 Dose: 10 mg Magnesium Hydroxide (Milk Of Magnesia) 30 ml PO DAILY PRN PRN Reason: Constipation Multivitamins/Minerals (Centrum) 1 tab PO BID [facility] Last Admin: 09/24/18 08:14 Dose: 1 tab Nystatin (Nystop) 0 gm TOP BID [facility] Last Admin: 09/24/18 08:14 Dose: 1 applic Nystatin (Nystop) 0 gm TOP TID PRN PRN Reason: skin irritation Last Admin: 09/23/18 05:09 Dose: 1 applic Omeprazole (Omeprazole) 20 mg PO ACBREAKFAST [facility] Last Admin: 09/24/18 07:36 Dose: 20 mg Polyethylene Glycol (Miralax) 17 gm PO Q2D [facility] Last Admin: 09/23/18 10:12 Dose: 17 gm Potassium Chloride (Klor-Con M20) 20 meq PO DAILY [facility] Last Admin: 09/24/18 08:14 Dose: 20 meq Sodium Chloride (Saline Flush) 10 ml FLUSH Q8HR PRN PRN Reason: keep vein open Last Admin: 09/23/18 11:17 Dose: 10 ml Discontinued Medications Acetaminophen (Tylenol) 650 mg RECTAL NOW ONE Stop: 09/18/18 18:34 Last Admin: 09/18/18 19:07 Dose: 650 mg Albuterol/Ipratropium (Duoneb 3.0-0.5 Mg/3 Ml) 3 ml NEB Q6HRRT [facility] Aspirin (Halfprin) 81 mg PO DAILY [facility] Last Admin: 09/19/18 08:43 Dose: 81 mg Aspirin (Aspirin) 162 mg PO ONETIME ONE Stop: 09/22/18 14:18 Last Admin: 09/22/18 15:54 Dose: 162 mg Atropine Sulfate (Atropine 0.1 Mg/Ml) 0 mg IVPUSH ASDIRECTED PRN PRN Reason: Heart. Ceftriaxone Sodium (Rocephin) 1 gm IVPUSH Q24H [facility] Last Admin: 09/18/18 16:16 Dose: Not Given Clopidogrel Bisulfate (Plavix) 300 mg PO ONETIME ONE Stop: 09/22/18 14:20 Last Admin: 09/22/18 15:54 Dose: 300 mg Diphenhydramine HCl (Benadryl) 25 mg IVPUSH Q6H [facility] Last Admin: 09/18/18 13:02 Dose: Not Given Diphenhydramine HCl (Benadryl) 25 mg IVPUSH Q6H [facility] Last Admin: 09/18/18 12:30 Dose: 25 mg Enoxaparin Sodium (Lovenox) 100 mg SUBCUT BID [facility] Last Admin: 09/20/18 08:38 Dose: 100 mg Enoxaparin Sodium (Lovenox) 40 mg SUBCUT DAILY [facility] Last Admin: 09/22/18 08:05 Dose: 40 mg Epinephrine HCl (Epinephrine 1:10,000) 1 mg IVPUSH ASDIRECTED PRN PRN Reason: Heart. Furosemide (Lasix) 40 mg IVPUSH NOW ONE Stop: 09/18/18 13:01 Last Admin: 09/18/18 14:00 Dose: 40 mg Furosemide (Lasix) 40 mg PO DAILY [facility] Last Admin: 09/19/18 11:23 Dose: Not Given Furosemide (Lasix) 20 mg IVPUSH NOW ONE Stop: 09/18/18 22:37 Last Admin: 09/18/18 23:02 Dose: 20 mg Furosemide (Lasix) 40 mg IVPUSH NOW ONE Stop: 09/19/18 11:04 Last Admin: 09/19/18 11:36 Dose: 40 mg Furosemide (Lasix) 20 mg IVPUSH NOW ONE Stop: 09/20/18 10:21 Last Admin: 09/20/18 11:07 Dose: 20 mg Furosemide (Lasix) 40 mg IVPUSH NOW ONE Stop: 09/21/18 09:57 Last Admin: 09/21/18 10:20 Dose: 40 mg Furosemide (Lasix) 20 mg IVPUSH NOW ONE Stop: 09/21/18 16:01 Last Admin: 09/21/18 16:18 Dose: 20 mg Furosemide (Lasix) 20 mg IVPUSH NOW ONE Stop: 09/21/18 19:01 Last Admin: 09/21/18 18:39 Dose: 20 mg Furosemide (Lasix) 40 mg IVPUSH NOW ONE Stop: 09/22/18 11:04 Last Admin: 09/22/18 11:37 Dose: 40 mg Furosemide (Lasix) 40 mg IVPUSH NOW ONE Stop: 09/22/18 16:01 Last Admin: 09/22/18 15:53 Dose: 40 mg Furosemide (Lasix) 40 mg IVPUSH NOW ONE Stop: 09/23/18 10:00 Last Admin: 09/23/18 11:17 Dose: 40 mg Furosemide (Lasix) 40 mg IVPUSH NOW ONE Stop: 09/23/18 16:01 Last Admin: 09/23/18 17:03 Dose: 40 mg Piperacillin/Tazobactam/ (Dextrose 3.375 gm/ Premix) 50 mls @ 100 mls/hr IV Q6H [facility] Last Admin: 09/18/18 13:03 Dose: Not Given Sodium Chloride (Normal Saline) 1,000 mls @ 50 mls/hr IV ASDIRECTED [facility] Last Admin: 09/18/18 12:16 Dose: 50 mls/hr Piperacillin/Tazobactam/ (Dextrose 3.375 gm/ Premix) 50 mls @ 100 mls/hr IV Q6H [facility] Last Admin: 09/18/18 13:09 Dose: 100 mls/hr Vancomycin HCl 1.25 gm/ Sodium (Chloride) 250 mls @ 120 mls/hr IV Q12H [facility] Last Admin: 09/20/18 01:41 Dose: 120 mls/hr Lidocaine HCl (Xylocaine 2%) 0 mg IVPUSH ASDIRECTED PRN PRN Reason: Heart. Metoprolol Tartrate (Lopressor) 2.5 mg IVPUSH ONETIME ONE Stop: 09/18/18 13:01 Last Admin: 09/18/18 14:13 Dose: 2.5 mg Metoprolol Tartrate (Lopressor) 2.5 mg IVPUSH Q6H PRN PRN Reason: Tachycardia Nitroglycerin (Nitrostat) 0.4 mg SL ASDIRECTED PRN PRN Reason: Heart. Potassium Bicarbonate (Klor-Con Ef) 25 meq PO ONETIME ONE Stop: 09/23/18 17:01 Last Admin: 09/23/18 17:18 Dose: 25 meq Potassium Chloride (Klor-Con 10) 20 meq PO ONETIME ONE Stop: 09/22/18 17:01 Last Admin: 09/22/18 16:14 Dose: 20 meq Vancomycin HCl (Pharmacy To Dose - Vancomycin) 1 dose .XX ASDIRECTED POLO
== END 2018-09-24 11:00 | DRG 281 ==
LOC: KA.MS 10:55
PROVIDERS: ADMIT Physician Assistant; ATTEND Family Medicine
DX: I50.33 Acute on chronic diastolic (congestive) heart failure (principal); I21.A1 Myocardial infarction type 2; N39.0 Urinary tract infection, site not specified; Z66 Do not resuscitate; G35 Multiple sclerosis; F03.90 Unspecified dementia, unspecified severity, without behavioral disturbance, psychotic disturbance, mood disturbance, and anxiety; N31.9 Neuromuscular dysfunction of bladder, unspecified; E66.9 Obesity, unspecified; Z79.899 Other long term (current) drug therapy; Z88.0 Allergy status to penicillin; Z88.8 Allergy status to other drugs, medicaments and biological substances; Z68.35 Body mass index [BMI] 35.0-35.9, adult
CPT/HCPCS: 36415; 36600; 51702; 71045; 71046; 80048; 80053; 81001; 82803; 83605; 83880; 84145; 84484; 85025; 85651; 87040; 87086; 93005; 94640; A4217; A9270-GY; J0696; J1200; J1650; J1940; J2543; J3370; J3490; J7030; J7050; J7620-GY

== ENCOUNTER 2019-03-23 15:11 | Observation (INO) | payer MEDICARE, BC ==
[2019-03-23] MEDS ORDERED: Sodium Chloride 0.9% 10 ML Syringe FLUSH PRN (15:21)
--- NOTE | 2019-03-23 15:34 | EDM.PDOC ---
ED HPI GENERAL MEDICAL PROBLEM - General Chief Complaint: Neurological Problem Stated Complaint: WEAKNESS Time Seen by Provider: 03/23/19 15:19 Source of Information: Reports: Patient History Limitations: Reports: No Limitations - History of Present Illness INITIAL COMMENTS - FREE TEXT/NARRATIVE: Patient is an 83-year-old female who presents to the emergency department via EMS from [address] [place] [address] with a complaint of altered mental status. Per nursing staff at 1400 today, resident was having difficulty standing, they noticed a left-sided facial droop and a decreased level of consciousness. Patient was lethargic and complained of a headache. Vital signs were stable at the nursing facility. Upon presentation, patient complains of a headache, however does not have any focal neuro deficits including facial droop or significant weakness. Patient does have baseline dementia, however she does answer basic questions without difficulty and is AAA 3. Patient denies chest pain, shortness of breath, abdominal pain, dysuria, blurry vision, facial or extremity numbness or tingling. Onset: Today Onset Time: 14:00 Duration: Minutes: Location: Reports: Head Severity: Mild Improves with: Reports: Other - Related Data Allergies Allergy/AdvReac Type Severity Reaction Status Date / Time terbinafine HCl Allergy Severe Hives Verified 09/18/18 11:58 [From Lamisil] Penicillins Allergy Cannot Verified 09/18/18 11:58 Remember Home Meds: Home Meds Loratadine [Claritin] 10 mg PO DAILY 11/21/13 [History] Multivit,Calc,Mins/Iron/Folic [Thera-M] 1 each PO BID 11/21/13 [History] Provex-Plus 1 cap PO DAILY 12/25/13 [History] Cellwise 1 tab PO BID 05/22/14 [History] Acetaminophen [Tylenol Arthritis Pain] 650 mg PO TID 10/26/14 [History] Docusate Sodium [Colace] 100 mg PO BID 10/26/14 [History] Aspirin [Adult Low Dose Aspirin EC] 81 mg PO DAILY 10/07/16 [History] Cranberry Conc/Ascorbic Acid [Cranberry Plus Vitamin C Sftgl] 1 cap PO DAILY [History] Furosemide 40 mg PO DAILY 10/07/16 [History] Miconazole Nitrate [Anti-Fungal] 1 applic TOP BID 10/07/16 [History] Polyethylene Glycol 3350 [MiraLAX] 17 gm PO Q2D 10/07/16 [History] Potassium Chloride 20 meq PO DAILY 10/07/16 [History] Albuterol Sulfate 2.5 mg IH BID 03/31/17 [History] L.acidoph,Paracasei, B.lactis [Probiotic] 1 each PO DAILY 03/31/17 [History] Miconazole Nitrate [Anti-Fungal] 1 applic TP TID PRN 04/03/17 [History] Carvedilol [Coreg] 6.25 mg PO BIDMEALS #60 tablet 04/04/17 [Rx] Albuterol/Ipratropium [DuoNeb 3.0-0.5 MG/3 ML] 3 ml INH Q4HR PRN 09/18/18 [ History] Magnesium Hydroxide [Milk of Magnesia] 30 ml PO DAILY PRN 09/18/18 [History] guaiFENesin [Mucinex] 600 mg PO BID PRN 09/18/18 [History] Bumetanide [Bumex] 1 mg PO TH #5 tab 09/24/18 [Rx] Omeprazole 20 mg PO ACBREAKFAST #30 cap.cr 09/24/18 [Rx] estradioL [Estrace 0.01% Vaginal Crm] 1 applic VAG TUFR #1 tube 09/24/18 [Rx] Past Medical History HEENT History: Reports: Hard of Hearing, Impaired Vision Cardiovascular History: Reports: Heart Failure 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 Respiratory History: Reports: Other (See Below) Other Respiratory History: Chronic wheezing Gastrointestinal History: Reports: Chronic Constipation Genitourinary History: Reports: Neurogenic Bladder, Urinary Incontinence, UTI, Recurrent 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: Reports: Musculoskeletal History: Reports: Arthritis, Other (See Below) Other Musculoskeletal History: Does not stand; Transfer vis [place] lift Neurological History: Reports: MS Psychiatric History: Reports: Dementia Dermatologic History: Reports: Other (See Below) - Infectious Disease History Infectious Disease History: Reports: MRSA Other Infectious Disease History: currently + influenza A - Past Surgical History Dermatological Surgical History: Reports: None Social & Family History - Family History Family Medical History: Noncontributory - Caffeine Use Caffeine Use: Reports: None ED ROS GENERAL - Review of Systems Review Of Systems: Comprehensive ROS is negative, except as noted in HPI. Constitutional: Reports: Weakness HEENT: Reports: No Symptoms Respiratory: Reports: No Symptoms Cardiovascular: Reports: No Symptoms Endocrine: Reports: No Symptoms GI/Abdominal: Reports: No Symptoms : Reports: No Symptoms Musculoskeletal: Reports: No Symptoms Skin: Reports: No Symptoms Neurological: Reports: Confusion, Headache, Pre-Existing Deficit, Weakness. Denies: Change in Speech Psychiatric: Reports: No Symptoms Hematologic/Lymphatic: Reports: No Symptoms Immunologic: Reports: No Symptoms - Physical Exam Exam: See Below Exam Limited By: Other (Dementia at baseline) General Appearance: Alert, WD/WN, No Apparent Distress Eye Exam: Bilateral Eye: Normal Inspection Nose: Normal Inspection, Normal Mucosa, No Blood Throat/Mouth: Normal Inspection, Normal Oropharynx, No Airway Compromise Head Exam: Atraumatic, Normocephalic Neck: Normal Inspection, Supple, Non-Tender, Full Range of Motion Respiratory/Chest: No Respiratory Distress, Lungs Clear, Normal Breath Sounds, No Accessory Muscle Use, Chest Non-Tender Cardiovascular: Regular Rate, Rhythm, No Murmur GI/Abdominal: Normal Bowel Sounds, Soft, Non-Tender, No Organomegaly, No Distention, No Abnormal Bruit, No Mass Neuro Exam (Abbreviated): Alert, Other (NIH 3 /consideration for baseline dementia) Back Exam: Normal Inspection. No: CVA Tenderness (L), CVA Tenderness (R) Extremities: Normal Inspection, No Pedal Edema Psychiatric: Normal Affect, Normal Mood Skin Exam: Warm, Dry, Intact, Normal Color, No Rash EKG INTERPRETATION EKG Date: 03/23/19 Time: 15:35 Rhythm: NSR Rate (Beats/Min): 78 [place]: LAD-Left [place] Deviation P-Wave: Present QRS: LBBB ST-T: Normal QT: Normal Comparison: No Change (From 09/22/2018) Course - Vital Signs Last Recorded V/S: Last Vital Signs Temp 96.9 F 03/23/19 15:33 Pulse 79 03/23/19 15:33 Resp 16 03/23/19 15:33 BP 129/51 L 03/23/19 15:33 Pulse Ox 97 03/23/19 15:33 - Orders/Labs/Meds Orders: Active Orders 24 hr Category Date Time Status EKG Documentation Completion [RC] ASDIRECTED Care 03/23/19 15:21 Ordered Peripheral IV Care [RC] . DIRECTED Care 03/23/19 15:21 Active URINALYSIS W/MICROSCOPIC [UA W/MICROSCOPIC] [URIN] Stat Lab 03/23/19 15:58 Ordered Sodium Chloride 0.9% [Saline Flush] Med 03/23/19 15:21 Ordered 10 ml FLUSH Q8HR PRN Peripheral IV Insertion Adult [OM.PC] Routine Oth 03/23/19 15:21 Ordered EKG 12 Lead [EK] Routine Ther 03/23/19 15:21 Ordered Medication Orders Sodium Chloride (Saline Flush) 10 ml FLUSH Q8HR PRN PRN Reason: keep vein open Labs: Laboratory Tests 03/23/19 03/23/19 03/23/19 Range/Units 15:15 15:15 15:15 WBC 10.96 H (5.00-10.00) 10^3/uL RBC 4.17 (3.80-5.50) 10^6/uL Hgb 13.5 (12.0-16.0) g/dL Hct 42.4 (37.0-47.0) % MCV 101.7 H (82.0-92.0) fL MCH 32.4 H (27.0-31.0) pg MCHC 31.8 L (32.0-36.0) g/dL RDW 13.0 (11.5-14.5) % Plt Count 435 H (150-400) 10^3/uL MPV 9.2 (7.4-10.4) fL Immature Gran % (Auto) 0.2 (0.0-5.0) % Neut % (Auto) 68.2 (50.0-70.0) % Lymph % (Auto) 24.5 (20.0-40.0) % [place] % (Auto) 7.1 (2.0-8.0) % Eos % (Auto) 0.0 L (1.0-3.0) % Baso % (Auto) 0.0 (0.0-1.0) % Immature Gran # (Auto) 0.02 (0.00-0.50) 10^3/uL Neut # (Auto) 7.47 H (2.50-7.00) 10^3/uL Lymph # (Auto) 2.69 (1.00-4.00) 10^3/uL [place] # (Auto) 0.78 (0.10-0.80) 10^3/uL Eos # (Auto) 0.00 L (0.10-0.30) 10^3/uL Baso # (Auto) 0.00 (0.00-0.10) 10^3/uL PT 9.6 (8.9-11.4) SEC INR 0.9 (0.9-1.1) APTT 29.4 (23.1-31.9) SEC Sodium 139 (136-145) mmol/L Potassium 4.2 (3.3-5.3) mmol/L Chloride 100 (98-115) mmol/L Carbon Dioxide 30.9 (21.0-32.0) mmol/L Anion Gap 12.3 (5-15) mmol/L BUN 11 (6-25) mg/dL Creatinine 0.79 (0.51-1.17) mg/dL Est Cr Clr Drug Dosing 49.40 mL/min Estimated GFR (MDRD) > 60 mL/min Glucose 115 H (75 - 99) mg/dL Calcium 9.1 (8.7-10.3) mg/dL Total Bilirubin 0.3 (0.2-1.0) mg/dL AST 33 (15-37) U/L ALT 30 (12-78) U/L Alkaline Phosphatase 98 (46-116) IU/L Troponin I < 0.04 (0.00-0.070) ng/mL Total Protein 8.7 H (6.4-8.2) g/dL Albumin 3.19 (3.00-4.80) g/dL Meds: Medications Generic Name Dose Route Start Last Admin Trade Name Freq PRN Reason Stop Dose Admin Sodium Chloride 10 ml 03/23/19 15:21 Saline Flush FLUSH Q8HR PRN keep vein open - Radiology Interpretation Free Text/Narrative:: Chest x-ray shows no acute cardiopulmonary process. CT head without contrast shows no acute intracranial process. - Re-Assessments/Exams Free Text/Narrative Re-Assessment/Exam: 03/23/19 16:05 Patient afebrile, vital signs stable, nontoxic appearing. Discussed case with Annita Reynolds [facility] provider. Patient will be admitted for observation and followed. Departure - Departure Time of Disposition: 16:07 Disposition: Refer to Observation Condition: Good Clinical Impression: TIA (transient ischemic attack) Dementia Qualifiers: Dementia type: unspecified type Dementia behavioral disturbance: without behavioral disturbance Qualified Code(s): F03.90 - Unspecified dementia without behavioral disturbance - Discharge Information Referrals: Autumn Cohen MD [Primary Care Provider] - Forms: ED Department Discharge Sepsis Event Note - Focused Exam Vital Signs: Vital Signs Temp Pulse Resp BP Pulse Ox 03/23/19 15:33 96.9 F 79 16 129/51 L 97 Date Exam was Performed: 03/23/19 Time Exam was Performed: 16:06 - My Orders Last 24 Hours: My Active Orders 03/23/19 15:21 EKG Documentation Completion [RC] ASDIRECTED Peripheral IV Care [RC] . DIRECTED Sodium Chloride 0.9% [Saline Flush] 10 ml FLUSH Q8HR PRN Peripheral IV Insertion Adult [OM.PC] Routine EKG 12 Lead [EK] Routine 03/23/19 15:58 URINALYSIS W/MICROSCOPIC [UA W/MICROSCOPIC] [URIN] Stat - Assessment/Plan Last 24 Hours: My Active Orders 03/23/19 15:21 EKG Documentation Completion [RC] ASDIRECTED Peripheral IV Care [RC] . DIRECTED Sodium Chloride 0.9% [Saline Flush] 10 ml FLUSH Q8HR PRN Peripheral IV Insertion Adult [OM.PC] Routine EKG 12 Lead [EK] Routine 03/23/19 15:58 URINALYSIS W/MICROSCOPIC [UA W/MICROSCOPIC] [URIN] Stat Assessment:: Altered mental status Plan: Admitted for observation
[2019-03-23 15:51] LABS: ANION GAP 12.3 mmol/L (5-15); CHLORIDE,CL 100 mmol/L (98-115); SODIUM,NA 139 mmol/L (136-145)
--- NOTE | 2019-03-23 15:59 | CR ---
[id number] RAD/RAD Chest PA or AP 1V EXAM: SINGLE VIEW CHEST. INDICATION: ALTERED MENTAL STATUS COMPARISON: CORRELATION IS MADE WITH THE EXAM OF SEPTEMBER 21, 2018 FINDINGS: The lungs are clear The cardiomediastinal contour is enlarged but stable IMPRESSION: NO PNEUMONIA OR EDEMA Leighton Segovia MD 03/23/19 [id number] Thank you for allowing us to participate in the care of your patient.
--- NOTE | 2019-03-23 16:00 | CT ---
[id number] CT/CT Head WO IV EXAM: CT Head WO IV CLINICAL DATA: ALTERED MENTAL STATUS COMPARISON: CORRELATION IS MADE WITH THE EXAM OF OCTOBER 26, 2014 FINDINGS: The degree of ventriculomegaly is stable There is no mass or mass effect There is no hemorrhage There are no extra-axial fluid collections. There are no sites of abnormal attenuation. Chronic appearing opacification of the left saphenous sinus is seen IMPRESSION: HYDROCEPHALUS UNCHANGED SINCE LAST EXAM CONSIDER FURTHER STUDIES IF NEEDED Leighton Segovia MD 03/23/19 [id number] Thank you for allowing us to participate in the care of your patient.
[2019-03-23] MEDS ORDERED: Sodium Chloride 0.9% 1,000 ML IV SCH (16:15)
[2019-03-23] MEDS ORDERED: Baclofen 10 MG Tab PO PRN (17:40)
[2019-03-23] MEDS ORDERED: Albuterol/Ipratropium 3.0-0.5 MG/3 ML Neb Soln INH PRN (17:40)
--- NOTE | 2019-03-23 17:48 | PCM.HP.2 ---
H&P History of Present Illness - General Date of Service: 03/23/19 Admit Problem/Dx: Admission Diagnosis/Problem Admission Diagnosis/Problem Altered mental status Source of Information: Patient, Prison Records, Provider, RN History Limitations: Reports: Other (Baseline dementia, however answers questions appropriately) - Related Data Allergies/Adverse Reactions: Allergies Allergy/AdvReac Type Severity Reaction Status Date / Time terbinafine HCl Allergy Severe Hives Verified 03/23/19 17:22 [From Lamisil] Penicillins Allergy Cannot Verified 03/23/19 17:22 Remember Home Medications: Home Meds Loratadine [Claritin] 10 mg PO DAILY 11/21/13 [History] Multivit,Calc,Mins/Iron/Folic [Thera-M] 1 each PO BID@,11/21/13 [History] Provex-Plus 1 cap PO DAILY 12/25/13 [History] Cellwise 1 tab PO BID@,05/22/14 [History] Acetaminophen [Tylenol Arthritis Pain] 650 mg PO TID@,,10/26/14 [History] Docusate Sodium [Colace] 100 mg PO BID@,10/26/14 [History] Aspirin [Adult Low Dose Aspirin EC] 81 mg PO DAILY 10/07/16 [History] Cranberry Conc/Ascorbic Acid [Cranberry Plus Vitamin C Sftgl] 1 cap PO DAILY [History] Furosemide 60 mg PO DAILY 10/07/16 [History] Polyethylene Glycol 3350 [MiraLAX] 17 gm PO Q2D 10/07/16 [History] Potassium Chloride 20 meq PO DAILY 10/07/16 [History] Albuterol Sulfate 2.5 mg IH BID@,03/31/17 [History] L.acidoph,Paracasei, B.lactis [Probiotic] 1 each PO DAILY 03/31/17 [History] Miconazole Nitrate [Anti-Fungal] 1 applic TP BID 04/03/17 [History] Carvedilol [Coreg] 6.25 mg PO BIDMEALS #60 tablet 04/04/17 [Rx] Albuterol/Ipratropium [DuoNeb 3.0-0.5 MG/3 ML] 3 ml INH Q4HR PRN 09/18/18 [ History] guaiFENesin [Mucinex] 600 mg PO BID PRN 09/18/18 [History] Omeprazole 20 mg PO ACBREAKFAST #30 cap.cr 09/24/18 [Rx] estradioL [Estrace 0.01% Vaginal Crm] 1 applic VAG TUFR #1 tube 09/24/18 [Rx] Baclofen 10 mg PO TID PRN 03/23/19 [History] Miconazole Nitrate [Desenex] 1 applic TOP TID PRN 03/23/19 [History] Msm/Alejandro Nimisha/Emu Oil/Hrb66 [Deep Blue Relief Gel] 1 applic TOP TID PRN 03/23/19 [ History] Past Medical History HEENT History: Reports: Hard of Hearing, Impaired Vision Cardiovascular History: Reports: Heart Failure 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 Respiratory History: Reports: Other (See Below) Other Respiratory History: Chronic wheezing Gastrointestinal History: Reports: Chronic Constipation Genitourinary History: Reports: Neurogenic Bladder, Urinary Incontinence, UTI, Recurrent SPEECH THERAPIST History: Reports: Musculoskeletal History: Reports: Arthritis, Other (See Below) Other Musculoskeletal History: Does not stand; Transfer vis antonietta lift Neurological History: Reports: MS Psychiatric History: Reports: Dementia Dermatologic History: Reports: Other (See Below) - Infectious Disease History Infectious Disease History: Reports: MRSA Other Infectious Disease History: currently + influenza A - Past Surgical History Dermatological Surgical History: Reports: None Social & Family History - Family History Oncologic: Reports: Lung (daughter) - Caffeine Use Caffeine Use: Reports: None H&P Review of Systems - Review of Systems: Review Of Systems: See Below General: Denies: Decreased Appetite HEENT: Reports: Glasses, Headaches (improving). Denies: Ear Pain, Sinus Congestion, Sore Throat Pulmonary: Denies: Shortness of Breath Cardiovascular: Denies: Chest Pain Gastrointestinal: Denies: Abdominal Pain, Diarrhea, Decreased Appetite, Nausea, Vomiting Genitourinary: Denies: Dysuria, Frequency, Urgency Psychiatric: Denies: Anxiety Neurological: Reports: Headache (improving). Denies: Dizziness Exam - Exam Exam: See Below - Vital Signs Vital Signs: Last Vital Signs Temp 96.9 F 03/23/19 15:33 Pulse 79 03/23/19 15:33 Resp 16 03/23/19 15:33 BP 129/51 L 03/23/19 15:33 Pulse Ox 97 03/23/19 15:33 Weight: 206 lb - Exam Quality Assessment: DVT Prophylaxis (ever stockings). No: Supplemental Oxygen, Urinary Catheter General: Alert, Oriented (to self and place, unaware of current year or year she was born, did get month and date correct), Cooperative, Other (no acute distress). No: Lethargic HEENT: Conjunctiva Clear, EOMI, Hearing Intact, Mucosa Moist & [place], Nares Patent, TMs Clear, Glasses, PERRLA Lungs: Clear to Auscultation, Normal Respiratory Effort Cardiovascular: Regular Rate, Regular Rhythm, Normal S1, Normal S2 GI/Abdominal Exam: Normal Bowel Sounds, Soft, Non-Tender, No Distention Extremities: No Pedal Edema Skin: Warm, Dry, Intact Neurological: Cranial Nerves Intact, Strength Equal Bilateral (4/5 to BUE, 5/5 to BLE), Normal Speech Neuro Extensive - Mental Status: Alert, Normal Mood/Affect. No: Oriented x3 (x2 ), Memory Intact (baseline dementia) Neuro Extensive - Motor, Sensory, Reflexes: CN II-XII Intact. No: Tongue Deviation (L), Tongue Deviation (R), Expressive Aphasia, Facial palsy (L), Facial Palsy (R), Hemeplagia (R), Hemeplagia (L), Pronator Drift (R), Pronator Drift (L) Psychiatric: Alert, Normal Affect, Normal Mood - Patient Data Lab Results Last 24 hrs: Laboratory Results - last 24 hr 03/23/19 03/23/19 03/23/19 Range/Units 15:15 15:15 15:15 WBC 10.96 H (5.00-10.00) 10^3/uL RBC 4.17 (3.80-5.50) 10^6/uL Hgb 13.5 (12.0-16.0) g/dL Hct 42.4 (37.0-47.0) % MCV 101.7 H (82.0-92.0) fL MCH 32.4 H (27.0-31.0) pg MCHC 31.8 L (32.0-36.0) g/dL RDW 13.0 (11.5-14.5) % Plt Count 435 H (150-400) 10^3/uL MPV 9.2 (7.4-10.4) fL Immature Gran % (Auto) 0.2 (0.0-5.0) % Neut % (Auto) 68.2 (50.0-70.0) % Lymph % (Auto) 24.5 (20.0-40.0) % [place] % (Auto) 7.1 (2.0-8.0) % Eos % (Auto) 0.0 L (1.0-3.0) % Baso % (Auto) 0.0 (0.0-1.0) % Immature Gran # (Auto) 0.02 (0.00-0.50) 10^3/uL Neut # (Auto) 7.47 H (2.50-7.00) 10^3/uL Lymph # (Auto) 2.69 (1.00-4.00) 10^3/uL [place] # (Auto) 0.78 (0.10-0.80) 10^3/uL Eos # (Auto) 0.00 L (0.10-0.30) 10^3/uL Baso # (Auto) 0.00 (0.00-0.10) 10^3/uL PT 9.6 (8.9-11.4) SEC INR 0.9 (0.9-1.1) APTT 29.4 (23.1-31.9) SEC Sodium 139 (136-145) mmol/L Potassium 4.2 (3.3-5.3) mmol/L Chloride 100 (98-115) mmol/L Carbon Dioxide 30.9 (21.0-32.0) mmol/L Anion Gap 12.3 (5-15) mmol/L BUN 11 (6-25) mg/dL Creatinine 0.79 (0.51-1.17) mg/dL Est Cr Clr Drug Dosing 49.40 mL/min Estimated GFR (MDRD) > 60 mL/min Glucose 115 H (75 - 99) mg/dL Calcium 9.1 (8.7-10.3) mg/dL Total Bilirubin 0.3 (0.2-1.0) mg/dL AST 33 (15-37) U/L ALT 30 (12-78) U/L Alkaline Phosphatase 98 (46-116) IU/L Troponin I < 0.04 (0.00-0.070) ng/mL Total Protein 8.7 H (6.4-8.2) g/dL Albumin 3.19 (3.00-4.80) g/dL Specimen Type Urine Color (YELLOW) Urine Appearance (CLEAR) Urine pH (5.0-9.0) Ur Specific [place] (1.005-1.030) Urine Protein (NEGATIVE) mg/dL Urine Glucose (UA) (NEGATIVE) mg/dL Urine Ketones (NEGATIVE) mg/dL Urine Occult Blood (NEGATIVE) Urine Nitrite (NEGATIVE) Urine Bilirubin (NEGATIVE) Urine Urobilinogen (0.2-1.0) E.U./dL Ur Leukocyte Esterase (NEGATIVE) Urine RBC (0-5) /HPF Urine WBC (0-5) /HPF Urine Bacteria (NONE TO FEW) /HPF 03/23/19 Range/Units 16:10 WBC (5.00-10.00) 10^3/uL RBC (3.80-5.50) 10^6/uL Hgb (12.0-16.0) g/dL Hct (37.0-47.0) % MCV (82.0-92.0) fL MCH (27.0-31.0) pg MCHC (32.0-36.0) g/dL RDW (11.5-14.5) % Plt Count (150-400) 10^3/uL MPV (7.4-10.4) fL Immature Gran % (Auto) (0.0-5.0) % Neut % (Auto) (50.0-70.0) % Lymph % (Auto) (20.0-40.0) % [place] % (Auto) (2.0-8.0) % Eos % (Auto) (1.0-3.0) % Baso % (Auto) (0.0-1.0) % Immature Gran # (Auto) (0.00-0.50) 10^3/uL Neut # (Auto) (2.50-7.00) 10^3/uL Lymph # (Auto) (1.00-4.00) 10^3/uL [place] # (Auto) (0.10-0.80) 10^3/uL Eos # (Auto) (0.10-0.30) 10^3/uL Baso # (Auto) (0.00-0.10) 10^3/uL PT (8.9-11.4) SEC INR (0.9-1.1) APTT (23.1-31.9) SEC Sodium (136-145) mmol/L Potassium (3.3-5.3) mmol/L Chloride (98-115) mmol/L Carbon Dioxide (21.0-32.0) mmol/L Anion Gap (5-15) mmol/L BUN (6-25) mg/dL Creatinine (0.51-1.17) mg/dL Est Cr Clr Drug Dosing mL/min Estimated GFR (MDRD) mL/min Glucose (75 - 99) mg/dL Calcium (8.7-10.3) mg/dL Total Bilirubin (0.2-1.0) mg/dL AST (15-37) U/L ALT (12-78) U/L Alkaline Phosphatase (46-116) IU/L Troponin I (0.00-0.070) ng/mL Total Protein (6.4-8.2) g/dL Albumin (3.00-4.80) g/dL Specimen Type [place] Urine Color Light yellow (YELLOW) Urine Appearance Turbid H (CLEAR) Urine pH 6.5 (5.0-9.0) Ur Specific [place] 1.015 (1.005-1.030) Urine Protein 30 H (NEGATIVE) mg/dL Urine Glucose (UA) Negative (NEGATIVE) mg/dL Urine Ketones Negative (NEGATIVE) mg/dL Urine Occult Blood Moderate H (NEGATIVE) Urine Nitrite Negative (NEGATIVE) Urine Bilirubin Negative (NEGATIVE) Urine Urobilinogen 0.2 (0.2-1.0) E.U./dL Ur Leukocyte Esterase Moderate H (NEGATIVE) Urine RBC 20-30 H (0-5) /HPF Urine WBC Packed (0-5) /HPF Urine Bacteria Few (NONE TO FEW) /HPF Result Diagrams: 03/23/19 15:15 03/23/19 15:15 EKG INTERPRETATION EKG Date: 03/23/19 Time: 15:35 Rhythm: NSR Rate (Beats/Min): 78 [place]: LAD-Left [place] Deviation P-Wave: Present QRS: Normal ST-T: Normal QT: Normal Comparison: No Change (12/2016) Sepsis Event Note - Evaluation Sepsis Screening Result: No Definite Risk - Focused Exam Vital Signs: Vital Signs Temp Pulse Resp BP Pulse Ox 03/23/19 15:33 96.9 F 79 16 129/51 L 97 Date Exam was Performed: 03/23/19 Time Exam was Performed: 18:19 Problem List Initiated/Reviewed/Updated: Yes Orders Last 24hrs: Active Orders 24 hr Category Date Time Status Patient Status [ADT] Routine ADT 03/23/19 16:09 Active EKG Documentation Completion [RC] ASDIRECTED Care 03/23/19 15:21 Active Intake and Output [RC] QSHIFT Care 03/23/19 17:36 Active Neuro Check [RC] ASDIRECTED Care 03/23/19 17:39 Active Oxygen Therapy [RC] .PRN Care 03/23/19 16:09 Active Oxygen Therapy [RC] PRN Care 03/23/19 17:35 Active Peripheral IV Care [RC] . DIRECTED Care 03/23/19 15:21 Active Up With Assistance [RC] ASDIRECTED Care 03/23/19 17:34 Active VTE/DVT Education [RC] PER UNIT ROUTINE Care 03/23/19 17:35 Active Vital Signs [RC] 1900,2300,0300,0700,1500 Care 03/23/19 17:35 Active Vital Signs [RC] Q4H Care 03/23/19 16:09 Active Low Sodium [Sodium Restricted Diet] [DIET] Diet 03/23/19 Dinner Active BASIC METABOLIC PANEL,BMP [CHEM] AM Lab 03/24/19 05:11 Ordered CBC WITH AUTO DIFF [HEME] AM Lab 03/24/19 05:11 Ordered CULTURE URINE [RM] Stat Lab 03/23/19 17:34 Ordered Acetaminophen [Tylenol Arthritis Pain] Med 03/23/19 20:00 Ordered 650 mg PO TID@,, Albuterol [Proventil Neb Soln] Med 03/23/19 19:00 Ordered 2.5 mg INH BID@ Albuterol/Ipratropium [DuoNeb 3.0-0.5 MG/3 ML] Med 03/23/19 17:40 Ordered 3 ml INH Q4HR PRN Aspirin [Halfprin] Med 03/24/19 09:00 Ordered 81 mg PO DAILY Baclofen [Lioresal] Med 03/23/19 17:40 Ordered 10 mg PO TID PRN Docusate Sodium [Colace] Med 03/23/19 18:00 Ordered 100 mg PO BID@08,18 Omeprazole Med 03/24/19 07:30 Ordered 20 mg PO ACBREAKFAST Polyethylene Glycol 3350 [MiraLAX] Med 03/23/19 17:45 Ordered 17 gm PO Q2D Potassium Chloride [Potassium Chloride] Med 03/24/19 09:00 Ordered 20 meq PO DAILY Sodium Chloride 0.9% [Normal Saline] 1,000 ml Med 03/23/19 16:15 Active IV ASDIRECTED Sodium Chloride 0.9% [Saline Flush] Med 03/23/19 15:21 Active 10 ml FLUSH Q8HR PRN carvediloL [Coreg] Med 03/23/19 18:00 Ordered 6.25 mg PO BIDMEALS Peripheral IV Insertion Adult [OM.PC] Routine Oth 03/23/19 15:21 Ordered Resuscitation Status Routine Resus Stat 03/23/19 16:09 Ordered EKG 12 Lead [EK] Routine Ther 03/23/19 15:21 Ordered Medication Orders Sodium Chloride (Normal Saline) 1,000 mls @ 125 mls/hr IV ASDIRECTED POLO Sodium Chloride (Saline Flush) 10 ml FLUSH Q8HR PRN PRN Reason: keep vein open Assessment/Plan Comment:: HPI: This is an 83 yo female who presented to the ED via ambulance for reported lethargy, diaphoresis, left-sided weakness and facial droop, severe headache, slurred speech, and nausea. She resides at [facility] and was reportedly brought the nurse after having difficulties standing with the lift after using the restroom. Vitals signs at that time unremarkable. She had evaluation done in the ED and subsequent admission for further monitoring. Pertinent ED work-up: WBC 10.9 without neutrophilia CMP unremarkable Troponin <0.04 Straight cath UA revealed moderate packed leukocytes, moderate blood, negative nitrites CT head no mass or mass effect, no hemorrhage, hydrocephalus unchanged since last exam (2014) CXR negative for acute processes EKG NSR with LBBB, unchanged from previous Primary Impression/Plan: Probable TIA. Neurochecks as directed. Telemetry monitoring. Give additional aspirin to equal 324 mg today given no hemorrhage on CT and continue with 325 mg daily. Lipids, A1c in AM. Acute headache, resolving. BP acceptable. Discontinue IV fluids. Asymptomatic bacteruria. Urine culture pending. ESR, CRP, and CBC in AM. Monitor for fever, dysuria, abdominal pain, etc. Hold off on antibiotics for now. Secondary Impression/Plan: HFrEF, chronic. ECHO (2017) EF 45%, reduced left ventricular systolic function, unable to assess diastolic dysfunction d/t abnormal rhythm. Continue coreg. Hold lasix. Moderate to severe mitral regurgitation. Moderate PAH. History of NSTEMI (2017). Multiple sclerosis. Continue baclofen PRN. Obstructive hydrocephalus. Neurogenic bladder. History of UTIs. On estradiol vaginal cream at [place]. Low back pain w/o sciatica. Continue tylenol arthritis. Dementia. Hypokalemia. K 4.2. Continue potassium supplementation. Constipation. Continue colace and Miralax. GERD. Continue omeprazole. Environmental allergies. Wheezing. Continue albuterol neb BID, and DuoNebs PRN. DVT prophylaxis. Ever stockings. Overall plan: Monitor hemodynamic and neurologic status. Repeat labs in AM. Anticipate discharge back to [facility] tomorrow. - Mortality Measure Prognosis:: Good
[2019-03-23] MEDS ORDERED: Aspirin 81 MG Tab.Chew PO ONE (18:06)
[2019-03-23] MEDS: Docusate Sodium 100 MG Cap PO SCH (19:23)
[2019-03-23] MEDS: Carvedilol 6.25 MG Tab PO SCH (19:23)
[2019-03-23] MEDS ORDERED: Lidocaine 2% 100 MG/5 ML Syringe IVPUSH PRN (19:25)
[2019-03-23] MEDS ORDERED: Atropine 0.1 MG/ML 10 ML Syringe IVPUSH PRN (19:25)
[2019-03-23] MEDS ORDERED: EPINEPHrine 1:10,000 1 MG/10 ML Syringe IVPUSH PRN (19:25)
[2019-03-23] MEDS ORDERED: Nitroglycerin 0.4 MG Tab.SL SL PRN (19:25)
[2019-03-23] MEDS: Albuterol 0.083% 2.5 MG/3 ML Neb Soln INH SCH (20:08)
[2019-03-23] MEDS: Acetaminophen 650 MG Tab.ER PO SCH (20:08)
[2019-03-24] MEDS ORDERED: Omeprazole 20 MG Cap.CR PO SCH (07:30)
[2019-03-24 07:52] LABS: ANION GAP 12.4 mmol/L (5-15); CHLORIDE,CL 102 mmol/L (98-115); SODIUM,NA 141 mmol/L (136-145)
[2019-03-24] MEDS ORDERED: Polyethylene Glycol 3350 Powder 238 GM Bot PO SCH (08:00)
[2019-03-24] MEDS: Carvedilol 6.25 MG Tab PO SCH (08:15)
[2019-03-24] MEDS: Docusate Sodium 100 MG Cap PO SCH (08:16)
[2019-03-24] MEDS: Acetaminophen 650 MG Tab.ER PO SCH (08:16)
[2019-03-24 08:17] VITALS: BP 123/57; PULSE 89
[2019-03-24 08:22] LABS: HEMOGLOBIN A1C 5.7 % (4.3-5.7)
[2019-03-24] MEDS ORDERED: Aspirin 81 MG Tab.EC PO SCH (09:00)
[2019-03-24] MEDS ORDERED: Aspirin 325 MG Tab.EC PO SCH (09:00)
[2019-03-24] MEDS ORDERED: Potassium Chloride 10 MEQ Tab.ER PO SCH (09:00)
[2019-03-24] MEDS: Albuterol 0.083% 2.5 MG/3 ML Neb Soln INH SCH (09:20)
[2019-03-24] MEDS ORDERED: Polyethylene Glycol 3350 Powder 17 GM Packet PO SCH (09:30)
[2019-03-24] MEDS ORDERED: Sulfamethoxazole/Trimethoprim 800-160 MG Tab PO ONE (10:03)
[2019-03-24] MEDS ORDERED: Furosemide 40 MG Tab PO SCH (10:15)
--- NOTE | 2019-03-24 10:27 | PCM.DCSUM1 ---
Discharge Summary - Discharge Data Discharge Date: 03/24/19 Discharge Disposition: DC/Tfer to SNF 03 Condition: Good - Referral to Home Health Primary Care Physician: Autumn Cohen MD - Patient Summary/Data Complications: None Labs Pending at D/C: Urine culture - Patient Instructions Diet: Low Sodium Activity: As Tolerated Notify Provider of: Fever (lethargy, headache, shortness of breath, or chest pain), Increased Pain, Nausea and/or Vomiting Other/Special Instructions: Please ensure a copy of the urine culture report from the hospital is available for the provider to review at her follow-up appointment. She will need to have a BMP drawn on 03/27/19 for provider to review at follow-up appointment. - Discharge Plan *PRESCRIPTION DRUG MONITORING PROGRAM REVIEWED*: Not Applicable *COPY OF PRESCRIPTION DRUG MONITORING REPORT IN PATIENT JONY: Not Applicable Prescriptions/Med Rec: Aspirin [Ecotrin EC] 325 mg PO DAILY #90 tab.ec Sulfamethoxazole/Trimethoprim [Bactrim Ds Tablet] 1 each PO BID #5 tablet Home Medications: Home Meds Loratadine [Claritin] 10 mg PO DAILY 11/21/13 [History] Multivit,Calc,Mins/Iron/Folic [Thera-M] 1 each PO BID@,11/21/13 [History] Provex-Plus 1 cap PO DAILY 12/25/13 [History] Cellwise 1 tab PO BID@,05/22/14 [History] Acetaminophen [Tylenol Arthritis Pain] 650 mg PO TID@,,10/26/14 [History] Docusate Sodium [Colace] 100 mg PO BID@,10/26/14 [History] Cranberry Conc/Ascorbic Acid [Cranberry Plus Vitamin C Sftgl] 1 cap PO DAILY [History] Furosemide 60 mg PO DAILY 10/07/16 [History] Polyethylene Glycol 3350 [MiraLAX] 17 gm PO Q2D 10/07/16 [History] Potassium Chloride 20 meq PO DAILY 10/07/16 [History] Albuterol Sulfate 2.5 mg IH BID@,19 03/31/17 [History] L.acidoph,Paracasei, B.lactis [Probiotic] 1 each PO DAILY 03/31/17 [History] Miconazole Nitrate [Anti-Fungal] 1 applic TP BID 04/03/17 [History] Carvedilol [Coreg] 6.25 mg PO BIDMEALS #60 tablet 04/04/17 [Rx] Albuterol/Ipratropium [DuoNeb 3.0-0.5 MG/3 ML] 3 ml INH Q4HR PRN 09/18/18 [ History] guaiFENesin [Mucinex] 600 mg PO BID PRN 09/18/18 [History] Omeprazole 20 mg PO ACBREAKFAST #30 cap.cr 09/24/18 [Rx] estradioL [Estrace 0.01% Vaginal Crm] 1 applic VAG TUFR #1 tube 09/24/18 [Rx] Baclofen 10 mg PO TID PRN 03/23/19 [History] Miconazole Nitrate [Desenex] 1 applic TOP TID PRN 03/23/19 [History] Msm/Alejandro Nimisha/Emu Oil/Hrb66 [Deep Blue Relief Gel] 1 applic TOP TID PRN 03/23/19 [ History] Aspirin [Ecotrin EC] 325 mg PO DAILY #90 tab.ec 03/24/19 [Rx] Sulfamethoxazole/Trimethoprim [Bactrim Ds Tablet] 1 each PO BID #5 tablet [Rx] Referrals: Annita Reynolds, PATIENT ACCOUNTS COORDINATOR [Nurse Practitioner] - 03/28/19 (Follow-up at the [facility].) - Discharge Summary/Plan Comment DC Time >30 min.: Yes Discharge Summary/Plan Comment: Date of admission: 03/23/19 Date of discharge: 03/24/19 Admitting diagnosis: Primary: TIA, Acute headache, Asymptomatic bacteruria Secondary: HFrEF, Moderate-severe mitral regurgitation, Moderate PAH, History of NSTEMI, MS, Obstructive hydrocephalus, Neurogenic bladder, History of UTIs, Low back pain w/o sciatica, Dementia, Hypokalemia, Constipation, GERD, Environmental allergies, Wheezing Final diagnosis: Primary: TIA, Acute headache-resolved, UTI Secondary: HFrEF, Moderate-severe mitral regurgitation, Moderate PAH, History of NSTEMI, MS, Obstructive hydrocephalus, Neurogenic bladder, History of UTIs, Low back pain w/o sciatica, Dementia, Hypokalemia, Constipation, GERD, Environmental allergies, Wheezing Procedures performed: None Brief History: This is an 83 yo female who presented to the ED via ambulance for reported lethargy, diaphoresis, left-sided weakness and facial droop, severe headache, slurred speech, and nausea. She resides at [facility] and was reportedly brought to the nurse after having difficulties standing with the lift after using the restroom. Vitals signs at that time unremarkable. She had evaluation done in the ED and subsequent admission for further monitoring. Pertinent ED work-up: WBC 10.9 without neutrophilia CMP unremarkable Troponin <0.04 Straight cath UA revealed moderate packed leukocytes, moderate blood, negative nitrites CT head no mass or mass effect, no hemorrhage, hydrocephalus unchanged since last exam (2014) CXR negative for acute processes EKG NSR with LBBB, unchanged from previous Hospital Course: The patient's hospital course was uneventful. She remained afebrile and hemodynamically stable. Neuro checks were performed and no abnormalities noted beyond her baseline dementia. She was given aspirin 325 mg po daily. She was given a short course of IV fluids upon arriving to the floor with resolution of her headache, so these were discontinued. She was monitored with telemetry and no adverse events reported. Urine culture pending. Given the WBC 11.4, ESR 107, CRP 2.6 and history of UTIs, she was started on Bactrim DS 1 tab po BID x 3 days. Discharge Labs: K 3.3 Creatinine 0.73 A1c 5.7 LDL 76 New medications on discharge: -Bactrim DS 1 tab po BID x 3 days Changes to home medications on discharge: -Increased ASA to 325 mg po daily -Hold potassium on 03/25/19 and 03/26/19 d/t possible interaction with Bactrim, then resume potassium 20 mEq po daily Regular home medications on discharge: -Deep Blue Relief Gel 1 applic top TID PRN -Miconazole 1 applic top TID PRN -Estradiol 0.01% 1 applic vag Tues/Thurs -Baclofen 10 mg po TID PRN -Mucinex 600 mg po BID PRN -Furosemide 60 mg po daily -DuoNebs 3 mL inh q4h PRN -Albuterol 2.5 mg inh BID -Miralax 17 gm po q2D -Probiotic 1 capsule po daily -Loratadine 10 mg po daily -Coreg 6.25 mg po BID -Provex-Plus 1 cap po daily -Multivitamin 1 tab po BID -Colace 100 mg po BID -Cranberry 1 cap po daily -Cellwise 1 tab po BID -Tylenol arthritis 650 mg po TID -Omeprazole 20 mg po daily Condition, Treatment, and Final Disposition: The patient is in stable condition at the time of discharge. She will be discharged back to [facility] today. She will have a follow-up BMP drawn on 03/27/19 and be seen in the clinic on 03/28/19 for follow-up of her hospital stay. Please ensure a urine culture report is available to review at this visit. - General Info Date of Service: 03/24/19 Functional Status: Reports: Pain Controlled, Tolerating Diet. Denies: New Symptoms - Review of Systems General: Reports: Fatigue HEENT: Denies: Headaches Pulmonary: Denies: Shortness of Breath Cardiovascular: Denies: Chest Pain Gastrointestinal: Denies: Abdominal Pain, Decreased Appetite, Nausea Neurological: Reports: Confusion. Denies: Dizziness, Headache Psychiatric: Reports: Confusion - Patient Data Vitals - Most Recent: Last Vital Signs Temp 97.7 F 03/24/19 07:00 Pulse 89 03/24/19 08:15 Resp 16 03/24/19 07:00 BP 123/57 L 03/24/19 08:15 Pulse Ox 95 03/24/19 07:00 Weight - Most Recent: 210 lb I&O - Last 24 hours: Intake & Output 03/23/19 03/24/19 03/24/19 22:59 06:59 14:59 Intake Total 120 150 Balance 120 150 Lab Results - Last 24 hrs: Laboratory Results - last 24 hr 03/23/19 03/23/19 03/23/19 Range/Units 15:15 15:15 15:15 WBC 10.96 H (5.00-10.00) 10^3/uL RBC 4.17 (3.80-5.50) 10^6/uL Hgb 13.5 (12.0-16.0) g/dL Hct 42.4 (37.0-47.0) % MCV 101.7 H (82.0-92.0) fL MCH 32.4 H (27.0-31.0) pg MCHC 31.8 L (32.0-36.0) g/dL RDW 13.0 (11.5-14.5) % Plt Count 435 H (150-400) 10^3/uL MPV 9.2 (7.4-10.4) fL Immature Gran % (Auto) 0.2 (0.0-5.0) % Neut % (Auto) 68.2 (50.0-70.0) % Lymph % (Auto) 24.5 (20.0-40.0) % Kittson % (Auto) 7.1 (2.0-8.0) % Eos % (Auto) 0.0 L (1.0-3.0) % Baso % (Auto) 0.0 (0.0-1.0) % Immature Gran # (Auto) 0.02 (0.00-0.50) 10^3/uL Neut # (Auto) 7.47 H (2.50-7.00) 10^3/uL Lymph # (Auto) 2.69 (1.00-4.00) 10^3/uL Kittson # (Auto) 0.78 (0.10-0.80) 10^3/uL Eos # (Auto) 0.00 L (0.10-0.30) 10^3/uL Baso # (Auto) 0.00 (0.00-0.10) 10^3/uL ESR (0-20) mm/hr PT 9.6 (8.9-11.4) SEC INR 0.9 (0.9-1.1) APTT 29.4 (23.1-31.9) SEC Sodium 139 (136-145) mmol/L Potassium 4.2 (3.3-5.3) mmol/L Chloride 100 (98-115) mmol/L Carbon Dioxide 30.9 (21.0-32.0) mmol/L Anion Gap 12.3 (5-15) mmol/L BUN 11 (6-25) mg/dL Creatinine 0.79 (0.51-1.17) mg/dL Est Cr Clr Drug Dosing 49.40 mL/min Estimated GFR (MDRD) > 60 mL/min Glucose 115 H (75 - 99) mg/dL Hemoglobin A1c (4.3-5.7) % Calcium 9.1 (8.7-10.3) mg/dL Total Bilirubin 0.3 (0.2-1.0) mg/dL AST 33 (15-37) U/L ALT 30 (12-78) U/L Alkaline Phosphatase 98 (46-116) IU/L Troponin I < 0.04 (0.00-0.070) ng/mL C-Reactive Protein (0.0-0.9) mg/dL Total Protein 8.7 H (6.4-8.2) g/dL Albumin 3.19 (3.00-4.80) g/dL Triglycerides (30-150) mg/dL Cholesterol (100-199) mg/dL LDL Cholesterol, Calc (0-100) mg/dL HDL Cholesterol (40-60) mg/dL Specimen Type Urine Color (YELLOW) Urine Appearance (CLEAR) Urine pH (5.0-9.0) Ur Specific Reading (1.005-1.030) Urine Protein (NEGATIVE) mg/dL Urine Glucose (UA) (NEGATIVE) mg/dL Urine Ketones (NEGATIVE) mg/dL Urine Occult Blood (NEGATIVE) Urine Nitrite (NEGATIVE) Urine Bilirubin (NEGATIVE) Urine Urobilinogen (0.2-1.0) E.U./dL Ur Leukocyte Esterase (NEGATIVE) Urine RBC (0-5) /HPF Urine WBC (0-5) /HPF Urine Bacteria (NONE TO FEW) /HPF 03/23/19 03/24/19 03/24/19 Range/Units 16:10 06:50 06:50 WBC 11.42 H (5.00-10.00) 10^3/uL RBC 3.89 (3.80-5.50) 10^6/uL Hgb 12.4 (12.0-16.0) g/dL Hct 39.4 (37.0-47.0) % MCV 101.3 H (82.0-92.0) fL MCH 31.9 H (27.0-31.0) pg MCHC 31.5 L (32.0-36.0) g/dL RDW 13.2 (11.5-14.5) % Plt Count 424 H (150-400) 10^3/uL MPV 9.2 (7.4-10.4) fL Immature Gran % (Auto) 0.1 (0.0-5.0) % Neut % (Auto) 60.6 (50.0-70.0) % Lymph % (Auto) 30.5 (20.0-40.0) % Kittson % (Auto) 8.7 H (2.0-8.0) % Eos % (Auto) 0.0 L (1.0-3.0) % Baso % (Auto) 0.1 (0.0-1.0) % Immature Gran # (Auto) 0.01 (0.00-0.50) 10^3/uL Neut # (Auto) 6.93 (2.50-7.00) 10^3/uL Lymph # (Auto) 3.48 (1.00-4.00) 10^3/uL Kittson # (Auto) 0.99 H (0.10-0.80) 10^3/uL Eos # (Auto) 0.00 L (0.10-0.30) 10^3/uL Baso # (Auto) 0.01 (0.00-0.10) 10^3/uL ESR 107 H (0-20) mm/hr PT (8.9-11.4) SEC INR (0.9-1.1) APTT (23.1-31.9) SEC Sodium 141 (136-145) mmol/L Potassium 3.3 (3.3-5.3) mmol/L Chloride 102 (98-115) mmol/L Carbon Dioxide 29.9 (21.0-32.0) mmol/L Anion Gap 12.4 (5-15) mmol/L BUN 16 (6-25) mg/dL Creatinine 0.73 (0.51-1.17) mg/dL Est Cr Clr Drug Dosing 53.46 mL/min Estimated GFR (MDRD) > 60 mL/min Glucose 98 (75 - 99) mg/dL Hemoglobin A1c 5.7 (4.3-5.7) % Calcium 8.9 (8.7-10.3) mg/dL Total Bilirubin (0.2-1.0) mg/dL AST (15-37) U/L ALT (12-78) U/L Alkaline Phosphatase (46-116) IU/L Troponin I (0.00-0.070) ng/mL C-Reactive Protein 2.4 H (0.0-0.9) mg/dL Total Protein (6.4-8.2) g/dL Albumin (3.00-4.80) g/dL Triglycerides 93 (30-150) mg/dL Cholesterol 139 (100-199) mg/dL LDL Cholesterol, Calc 76 (0-100) mg/dL HDL Cholesterol 44 (40-60) mg/dL Specimen Type Urinqcath Urine Color Light yellow (YELLOW) Urine Appearance Turbid H (CLEAR) Urine pH 6.5 (5.0-9.0) Ur Specific Reading 1.015 (1.005-1.030) Urine Protein 30 H (NEGATIVE) mg/dL Urine Glucose (UA) Negative (NEGATIVE) mg/dL Urine Ketones Negative (NEGATIVE) mg/dL Urine Occult Blood Moderate H (NEGATIVE) Urine Nitrite Negative (NEGATIVE) Urine Bilirubin Negative (NEGATIVE) Urine Urobilinogen 0.2 (0.2-1.0) E.U./dL Ur Leukocyte Esterase Moderate H (NEGATIVE) Urine RBC 20-30 H (0-5) /HPF Urine WBC Packed (0-5) /HPF Urine Bacteria Few (NONE TO FEW) /HPF EDWARD Results - Last 24 hrs: Microbiology 03/23/19 18:00 Urine Culture - Final Urine, Quick Cath (In-Out) Med Orders - Current: Current Medications Acetaminophen (Tylenol Arthritis Pain) 650 mg PO TID@,, [facility] Last Admin: 03/24/19 08:16 Dose: 650 mg Albuterol (Proventil Neb Soln) 2.5 mg INH BID@ [facility] Last Admin: 03/24/19 09:20 Dose: 2.5 mg Albuterol/Ipratropium (Duoneb 3.0-0.5 Mg/3 Ml) 3 ml INH Q4HR PRN PRN Reason: Shortness of Breath Aspirin (Ecotrin) 325 mg PO DAILY [facility] Last Admin: 03/24/19 09:18 Dose: 325 mg Atropine Sulfate (Atropine 0.1 Mg/Ml) 0.5 - 1 mg IVPUSH ASDIRECTED PRN PRN Reason: Heart. Baclofen (Lioresal) 10 mg PO TID PRN PRN Reason: muscle spasticity Carvedilol (Coreg) 6.25 mg PO BIDMEALS [facility] Last Admin: 03/24/19 08:15 Dose: 6.25 mg Docusate Sodium (Colace) 100 mg PO BID@,18 [facility] Last Admin: 03/24/19 08:16 Dose: 100 mg Epinephrine HCl (Epinephrine 1:10,000) 1 mg IVPUSH ASDIRECTED PRN PRN Reason: Heart. Furosemide (Lasix) 60 mg PO DAILY [facility] Lidocaine HCl (Xylocaine 2%) 1 - 1.5 mg IVPUSH ASDIRECTED PRN PRN Reason: Heart. Nitroglycerin (Nitrostat) 0.4 mg SL ASDIRECTED PRN PRN Reason: Heart. Omeprazole (Omeprazole) 20 mg PO ACBREAKFAST [facility] Last Admin: 03/24/19 07:31 Dose: 20 mg Polyethylene Glycol (Miralax) 17 gm PO Q48H [facility] Last Admin: 03/24/19 09:31 Dose: 17 gm Potassium Chloride (Klor-Con 10) 20 meq PO DAILY [facility] Last Admin: 03/24/19 09:18 Dose: 20 meq Sodium Chloride (Saline Flush) 10 ml FLUSH Q8HR PRN PRN Reason: keep vein open Discontinued Medications Aspirin (Halfprin) 81 mg PO DAILY [facility] Aspirin (Aspirin) 243 mg PO ONETIME ONE Stop: 03/23/19 18:07 Last Admin: 03/23/19 19:23 Dose: 243 mg Sodium Chloride (Normal Saline) 1,000 mls @ 125 mls/hr IV ASDIRECTED [facility] Last Admin: 03/23/19 16:30 Dose: 125 mls/hr Trimethoprim/Sulfamethoxazole (Septra Ds) 1 tab PO ONETIME ONE Stop: 03/24/19 10:04 - Exam Quality Assessment: Reports: Supplemental Oxygen (95%, wears 1 liter at bedtime) , DVT Prophylaxis (Ever stockings). Denies: Urine Catheter General: Reports: Alert, Oriented (to self only), Cooperative, No Acute Distress. Denies: Lethargic HEENT: Reports: Pupils Equal, Pupils Reactive, Mucous Membr. Moist/Mccool Lungs: Reports: Clear to Auscultation (upper lobes), Normal Respiratory Effort, Crackles (to bilateral bases) Cardiovascular: Reports: Regular Rate, Regular Rhythm, No Murmurs Extremities: No Pedal Edema Skin: Reports: Warm, Dry, Intact Neurological: Reports: No New Focal Deficit, Normal Speech, Strength Equal Bilateral (4/5 to BUE, 5/5 to BLE) Psy/Mental Status: Reports: Alert, Other (Irritated)
== END 2019-03-24 12:00 ==
LOC: KA.ED 15:11 → KA.MS 16:09
PROVIDERS: ADMIT Physician Assistant Surgical; ATTEND Nurse Practitioner Family
DX: R41.82 Altered mental status, unspecified (principal); R51 Headache; R82.71 Bacteriuria; I50.22 Chronic systolic (congestive) heart failure; F03.90 Unspecified dementia, unspecified severity, without behavioral disturbance, psychotic disturbance, mood disturbance, and anxiety; I34.0 Nonrheumatic mitral (valve) insufficiency; I27.21 Secondary pulmonary arterial hypertension; G35 Multiple sclerosis; G91.1 Obstructive hydrocephalus; N31.9 Neuromuscular dysfunction of bladder, unspecified; M54.5 Low back pain; M19.90 Unspecified osteoarthritis, unspecified site; K59.00 Constipation, unspecified; K21.9 Gastro-esophageal reflux disease without esophagitis; R06.2 Wheezing; Z88.8 Allergy status to other drugs, medicaments and biological substances; Z88.0 Allergy status to penicillin; Z79.899 Other long term (current) drug therapy; Z79.82 Long term (current) use of aspirin; Z86.79 Personal history of other diseases of the circulatory system; Z87.440 Personal history of urinary (tract) infections
CPT/HCPCS: 36415; 70450; 71045; 80048; 80053; 80061; 81001; 83036; 84484; 85025; 85610; 85651; 85730; 86140; 87086; 87088; 87186; 93005; 94640; 99284; A9270-GY; G0378; J7030; J7613-GY

== ENCOUNTER 2021-08-31 09:16 | Inpatient (IN) | payer MEDICARE, BC, MEDICAID ==
[2021-08-31] MEDS ORDERED: Sodium Chloride 0.9% 1,000 ML IV ONE (09:30)
[2021-08-31 10:12] LABS: CHLORIDE,CL 104 mmol/L (98-107); ESTIMATED GFR > 60 mL/min; SODIUM,NA 140 mmol/L (136-145)
[2021-08-31] MEDS ORDERED: Ciprofloxacin in D5W 400 MG in Premix Bag 1 BAG IV ONE ×2 (10:30)
[2021-08-31] MEDS ORDERED: Albuterol/Ipratropium 3.0-0.5 MG/3 ML Neb Soln INH PRN (12:04)
[2021-08-31] MEDS ORDERED: Acetaminophen 325 MG Tab PO PRN (12:04)
[2021-08-31] MEDS ORDERED: guaiFENesin 600 MG Tab.ER PO PRN (12:04)
[2021-08-31] MEDS: Polyethylene Glycol 3350 Powder 17 GM Packet PO SCH (13:02)
[2021-08-31] MEDS: Acetaminophen 650 MG Tab.ER PO SCH ×2 (14:12→21:15)
[2021-08-31] MEDS: Sodium Chloride 0.9% 1,000 ML IV SCH (15:20)
[2021-08-31] MEDS: Pantoprazole 40 MG Vial IVPUSH SCH (15:20)
[2021-08-31] MEDS: Carvedilol 6.25 MG Tab PO SCH ×2 (15:21→17:53)
[2021-08-31] MEDS: Albuterol 0.083% 2.5 MG/3 ML Neb Soln INH SCH ×2 (17:50→18:20)
[2021-08-31] MEDS: Docusate Sodium 100 MG Cap PO SCH (17:53)
[2021-08-31] MEDS ORDERED: Carvedilol 6.25 MG Tab PO SCH (18:00)
[2021-08-31] MEDS ORDERED: cefTRIAXone 1 GM Vial IVPUSH SCH (21:00)
[2021-08-31] MEDS: Enoxaparin 40 MG/0.4 ML Syringe SUBCUT SCH (21:15)
[2021-09-01] MEDS: Cefepime 2 GM in Sodium Chloride 0.9% 50 ML IV SCH ×4 (00:45→23:04)
[2021-09-01] MEDS: Sodium Chloride 0.9% 1,000 ML IV SCH (05:10)
[2021-09-01] MEDS: Acetaminophen 650 MG Tab.ER PO SCH ×4 (08:08→20:07)
[2021-09-01] MEDS: Pantoprazole 40 MG Vial IVPUSH SCH (08:27)
[2021-09-01] MEDS: Albuterol 0.083% 2.5 MG/3 ML Neb Soln INH SCH ×2 (08:27→18:27)
[2021-09-01] MEDS: Loratadine 10 MG Tab PO SCH (08:28)
[2021-09-01] MEDS: Docusate Sodium 100 MG Cap PO SCH ×3 (08:28→17:59)
[2021-09-01] MEDS: Carvedilol 6.25 MG Tab PO SCH ×2 (08:28→17:58)
[2021-09-01] MEDS: Aspirin 325 MG Tab.EC PO SCH ×2 (08:28→09:24)
[2021-09-01 08:34] LABS: CHLORIDE,CL 109 mmol/L (98-107); SODIUM,NA 139 mmol/L (136-145)
[2021-09-01 08:37] LABS: ESTIMATED GFR > 60 mL/min
[2021-09-01] MEDS ORDERED: Furosemide 40 MG Tab PO SCH (09:00)
[2021-09-01] MEDS ORDERED: Potassium Chloride 20 MEQ Tab.ER PO SCH (09:00)
[2021-09-01] MEDS: Enoxaparin 40 MG/0.4 ML Syringe SUBCUT SCH (20:07)
[2021-09-02 07:47] LABS: ANION GAP 11.5 mmol/L (5-15); CHLORIDE,CL 107 mmol/L (98-107); SODIUM,NA 140 mmol/L (136-145)
[2021-09-02 07:48] LABS: ESTIMATED GFR > 60 mL/min
[2021-09-02] MEDS: Cefepime 2 GM in Sodium Chloride 0.9% 50 ML IV SCH ×2 (08:31→16:04)
[2021-09-02] MEDS: Pantoprazole 40 MG Vial IVPUSH SCH (08:31)
[2021-09-02] MEDS: Albuterol 0.083% 2.5 MG/3 ML Neb Soln INH SCH ×2 (08:32→18:39)
[2021-09-02] MEDS: Aspirin 325 MG Tab.EC PO SCH (08:33)
[2021-09-02] MEDS: Loratadine 10 MG Tab PO SCH (08:33)
[2021-09-02] MEDS: Carvedilol 6.25 MG Tab PO SCH ×2 (08:33→17:58)
[2021-09-02] MEDS: Docusate Sodium 100 MG Cap PO SCH ×2 (08:34→17:58)
[2021-09-02] MEDS: Acetaminophen 650 MG Tab.ER PO SCH ×3 (08:34→20:09)
[2021-09-02] MEDS: Polyethylene Glycol 3350 Powder 17 GM Packet PO SCH (12:09)
[2021-09-02] MEDS: Enoxaparin 40 MG/0.4 ML Syringe SUBCUT SCH (20:09)
[2021-09-03] MEDS: Cefepime 2 GM in Sodium Chloride 0.9% 50 ML IV SCH ×3 (00:04→16:24)
[2021-09-03] MEDS ORDERED: Sodium Chloride 0.9% 100 ML IV SCH (00:15)
[2021-09-03] MEDS: Docusate Sodium 100 MG Cap PO SCH ×2 (07:36→17:31)
[2021-09-03] MEDS: Acetaminophen 650 MG Tab.ER PO SCH ×3 (07:36→20:00)
[2021-09-03] MEDS: Carvedilol 6.25 MG Tab PO SCH ×2 (07:36→17:31)
[2021-09-03 07:55] LABS: CHLORIDE,CL 106 mmol/L (98-107); ESTIMATED GFR > 60 mL/min; SODIUM,NA 137 mmol/L (136-145)
[2021-09-03] MEDS: Aspirin 325 MG Tab.EC PO SCH (08:12)
[2021-09-03] MEDS: Pantoprazole 40 MG Vial IVPUSH SCH (08:12)
[2021-09-03] MEDS: Loratadine 10 MG Tab PO SCH (08:12)
[2021-09-03] MEDS: Albuterol 0.083% 2.5 MG/3 ML Neb Soln INH SCH ×2 (08:15→19:03)
[2021-09-03] MEDS: Furosemide 20 MG Tab PO SCH (09:24)
[2021-09-03] MEDS: Enoxaparin 40 MG/0.4 ML Syringe SUBCUT SCH (20:01)
[2021-09-03] MEDS ORDERED: Melatonin 3 MG Tab PO SCH (21:00)
[2021-09-04 07:54] LABS: ANION GAP 6.7 mmol/L (5-15); CHLORIDE,CL 104 mmol/L (98-107); SODIUM,NA 139 mmol/L (136-145)
[2021-09-04 07:55] LABS: ESTIMATED GFR > 60 mL/min
[2021-09-04] MEDS ORDERED: Potassium Chloride 20 MEQ Tab.ER PO SCH (08:00)
[2021-09-04] MEDS: Carvedilol 6.25 MG Tab PO SCH (08:00)
[2021-09-04] MEDS: Docusate Sodium 100 MG Cap PO SCH (08:00)
[2021-09-04] MEDS: Acetaminophen 650 MG Tab.ER PO SCH (08:00)
[2021-09-04] MEDS: Cefepime 2 GM in Sodium Chloride 0.9% 50 ML IV SCH ×3 (08:14)
[2021-09-04] MEDS: Albuterol 0.083% 2.5 MG/3 ML Neb Soln INH SCH (08:18)
[2021-09-04] MEDS: Loratadine 10 MG Tab PO SCH (09:00)
[2021-09-04] MEDS: Furosemide 20 MG Tab PO SCH (09:00)
[2021-09-04] MEDS: Aspirin 325 MG Tab.EC PO SCH (09:00)
[2021-09-04 11:04] VITALS: BP 127/56; PULSE 95
[2021-09-04] MEDS ORDERED: Cefdinir 300 MG Cap PO ONE (11:39)
== END 2021-09-04 12:40 | DRG 872 ==
LOC: KA.ED 09:16 → KA.MS 10:44
PROVIDERS: ADMIT Nurse Practitioner Family; ATTEND Family Medicine
DX: A41.9 Sepsis, unspecified organism (principal); R41.82 Altered mental status, unspecified; D66 Hereditary factor VIII deficiency; I50.9 Heart failure, unspecified; N39.0 Urinary tract infection, site not specified; I50.22 Chronic systolic (congestive) heart failure; Z66 Do not resuscitate; Z20.822 Contact with and (suspected) exposure to COVID-19; K21.9 Gastro-esophageal reflux disease without esophagitis; Z86.14 Personal history of Methicillin resistant Staphylococcus aureus infection; K59.09 Other constipation; Z88.8 Allergy status to other drugs, medicaments and biological substances; Z79.82 Long term (current) use of aspirin; Z79.899 Other long term (current) drug therapy; M19.90 Unspecified osteoarthritis, unspecified site; J44.9 Chronic obstructive pulmonary disease, unspecified; G89.29 Other chronic pain; M54.50 Low back pain, unspecified; C67.9 Malignant neoplasm of bladder, unspecified; B96.4 Proteus (mirabilis) (morganii) as the cause of diseases classified elsewhere; E88.09 Other disorders of plasma-protein metabolism, not elsewhere classified; I34.0 Nonrheumatic mitral (valve) insufficiency; G35 Multiple sclerosis; F03.90 Unspecified dementia, unspecified severity, without behavioral disturbance, psychotic disturbance, mood disturbance, and anxiety; J30.9 Allergic rhinitis, unspecified; I27.21 Secondary pulmonary arterial hypertension; R32 Unspecified urinary incontinence; N31.9 Neuromuscular dysfunction of bladder, unspecified; H91.90 Unspecified hearing loss, unspecified ear; H54.7 Unspecified visual loss; Z88.0 Allergy status to penicillin; Z86.73 Personal history of transient ischemic attack (TIA), and cerebral infarction without residual deficits; I25.2 Old myocardial infarction; Z86.16 Personal history of COVID-19; Z87.891 Personal history of nicotine dependence
CPT/HCPCS: 36415; 71045; 74176; 80053; 81001; 83605; 84484; 85025; 86140; 87040; 87086; 87088; 87186; 93005; 93010; 94640; 96361; 96365; 99284; 99285-25; A9270-GY; C9113; J0692; J0696; J0744; J1650; J7030; J7613-GY; U0002